=== PATIENT | male | born 2000 | race Caucasian/White ===

== ENCOUNTER 2020-08-24 18:52 | Emergency (ER) | payer OTHER, SELFPAY ==
--- NOTE | ~2020-08-24 | US_ITS ---
EXAMINATION: US ABDOMEN LIMITED CLINICAL INFORMATION: Right upper quadrant pain with question of cholecystitis. COMPARISON: None TECHNIQUE: Real-time imaging of the right upper quadrant abdominal viscera. FINDINGS: PANCREAS: The visualized portions of the pancreas are unremarkable but a large portion of the gland is obscured by bowel gas. LIVER: The liver is normal in size but is heterogeneous in echotexture multiple linear channels that are hypoechoic are present that were examined with Doppler do not appear to have flow and are suspicious for dilated intrahepatic bile ducts (for example see series 1 image /). No focal liver masses are seen. GALLBLADDER: The gallbladder is physiologically distended without evidence of stones, sludge, polyps, wall thickening or pericholecystic fluid. COMMON BILE DUCT: Normal in caliber measuring 0.3 cm in diameter. RIGHT KIDNEY: No hydronephrosis. A small 1.3 x 1.0 x 0.8 cm upper pole cyst is present. No renal calculi or focal solid parenchymal lesions. The kidney measures 11.9 cm in maximum dimension. FREE FLUID: None. US/US abdomen limited IMPRESSION: Findings present are suspicious for intrahepatic biliary ductal dilatation and, because of this, contrast-enhanced CT scan is recommended for further evaluation.
[2020-08-24 19:12] VITALS: BP 125/75; PULSE 101; RESP 16; TEMP 36.9; O2SAT 97; BMI 32.0
[2020-08-24 19:52] LABS: Glucose Urine UA NEG (NEG); Leukocyte Esterase Urine NEG (NEG); Nitrite Urine NEG (NEG); Urine Blood NEG (NEG); Urine Ketones NEG (NEG); Urine Protein NEG (NEG-TRACE)
[2020-08-24 19:55] LABS: Appearance Urine CLEAR; Color Urine STRAW
[2020-08-24 20:21] LABS: MANUAL DIFF FLAG NO
[2020-08-24 20:22] LABS: Basophils Percent Auto 0.3 % (0-2); Eosinophils Percent Auto 0.1 % (0-4); Hematocrit 47.1 % (42-52); Imm Gran Abs Auto 0.05 X10*3/uL (0.00-0.03); Imm Gran Pct Auto 0.4 % (0.0-0.4); Lymphocytes Absolute Auto 1.3 X10*3/uL (1.2-4.9); Lymphocytes Percent Auto 9.9 % (20-40); Mean Corpuscular Hemoglobin 29.2 pg (27.0-33.0); Mean Corpuscular Volume 85.9 fL (80-98); Mean Platelet Volume 9.5 fL (9.4-12.4); Monocytes Absolute Auto 1.2 X10*3/uL (0.1-1.2); Neutrophils Absolute Auto 10.7 X10*3/uL (2.0-8.3); Neutrophils Percent Auto 80.3 % (45-73); Platelet Count 272 X10*3/uL (160-400); Red Blood Count 5.48 X10*6/uL (4.60-5.80); Red Cell Distribution Width 12.3 % (11.0-16.0); White Blood Count 13.3 X10*3/uL (4.8-10.8)
[2020-08-24 20:50] LABS: Alanine Aminotransferase 49 U/L (0-40); Albumin Level 4.7 g/dL (3.5-5.0); Alkaline Phosphatase 96 U/L (39-117); Anion Gap 13 (12-20); Aspartate Amino Transferase 32 U/L (5-37); Bilirubin Total 1.3 mg/dL (0.0-1.0); Blood Urea Nitrogen 8 mg/dL (9-16); Calcium 9.4 mg/dL (8.4-10.2); Carbon Dioxide 23 mmol/L (22-29); Chloride 104 mmol/L (96-108); Creatinine Clr Calc Pharmacy 145.1; Estimated Glomerular Filt Rate > 60; Glucose Random 97 mg/dL (60-115); Lipase 9 U/L (8-78); Sodium 136 mmol/L (135-145); Total Protein 7.2 g/dL (6.5-8.0)
--- NOTE | 2020-08-24 21:27 | ED_ITS ---
HPI - Abdominal Pain General Chief Complaint: Abdominal Pain Stated Complaint: abd pain Time Seen by Provider: 08/24/20 21:27 Source: patient and family Mode of arrival: ambulatory Limitations: no limitations History of Present Illness HPI narrative: Medical history complaining of epigastric pain since yesterday with bloating and slight nausea no vomiting. Patient never had any stomach issues before no pain in the lower abdomen no fever no chills patient has been eating okay otherwise MD elicited complaint: abdominal pain Onset (ago): day(s) (2) Pain Consistency: constant Location: epigastric Severity: mild Quality: sharp Radiation: none Exacerbating factors: eating Relieving factors: nothing Associated symptoms: nausea Related Data Previous Rx's Medication Instructions Recorded omeprazole 20 mg PO DAILY #10 cap 08/24/20 sucralfate 1 g PO BID #20 tab 08/24/20 Allergies Allergy/AdvReac Type Severity Reaction Status Date / Time No Known Allergies Allergy Verified 08/24/20 19:12 Review of Systems Review of Systems Constitutional : No Weight loss, No Fever, No Chills ENT/Mouth : No sore throat, No Rhinorrhea Eyes: No Eye Pain, No Swelling Cardiovascular : No Chest Pain, no palpitations Respiratory : No Cough, No Sputum, no shortness of breath Gastrointestinal : +Nausea, No Vomiting, No Diarrhea, +abdominal Pain, no black stools Genitourinary : No Dysuria, No Urinary Frequency Musculoskeletal : No joint pain, No Myalgias, No Joint Swelling Skin : No Skin Lesions, No rash Neuro : No Weakness, No Numbness, No Dizziness, No Headache Psych : No Anxiety/Panic, No Depression Heme/Lymph: No Bruising, No Lymphadenopathy Endocrine : No Polyuria, No Polydipsia All other systems reviewed and are negative Physical Exam Vital Signs: Vital Signs: Last Vital Signs Temp 98.5 F 08/24/20 23:21 Pulse 84 08/24/20 23:21 Resp 16 08/24/20 23:21 BP 115/61 08/24/20 23:21 Pulse Ox 97 08/24/20 23:21 Body Mass Index 32.0 Appearance: Alert. Oriented X3. No acute distress. Eyes: Pupils equal, round and reactive to light. ENT: Pharynx normal. Neck: Normal inspection. Neck supple. CVS: Normal heart rate and rhythm. Pulses normal. Respiratory: No respiratory distress. Breath sounds normal. Abdomen: Soft mild tenderness right upper quadrant and epigastric area no tenderness in the right lower quadrant no rebound tenderness no guarding, Bowel sounds are present, no mass palpable, no CVA tenderness Skin: Skin warm and dry. Normal skin color. Normal skin turgor. Extremities: No lower extremity edema. Neuro: Oriented X 3. No motor deficit. No sensory deficit. Course Course Course Narrative: 0050 : Patient preferred to come back for the CT scan which was done with IV contrast awaiting for the final report 01:18 CT scan negative for any acute findings MDM - Abdominal Pain MDM Narrative Medical decision making narrative: Patient with epigastric pain likely gastritis ultrasound negative for gallstones case discussed radiology is seen some dilated hepatic ducts etiology not clear how advise IV contrast CT scan patient left before the report came off usually will be coming back for CT scan as such patient is sleeping now without any significant pain Differential Diagnosis Differential diagnosis: Likely abdominal pain Lab Data Attestation: I reviewed the patient's lab results. Result diagrams: 08/24/20 20:15 08/24/20 20:15 Labs: Lab Results 08/24/20 08/24/20 08/24/20 Range/Units 19:36 20:15 20:15 WBC 13.3 H (4.8-10.8) X10*3/uL RBC 5.48 (4.60-5.80) X10*6/uL Hgb 16.0 (14.0-18.0) g/dl Hct 47.1 (42-52) % MCV 85.9 (80-98) fL MCH 29.2 (27.0-33.0) pg MCHC 34.0 (31.0-36.0) g/dl RDW 12.3 (11.0-16.0) % Plt Count 272 (160-400) X10*3/uL MPV 9.5 (9.4-12.4) fL Immature Gran % (Auto) 0.4 (0.0-0.4) % Neut % (Auto) 80.3 H (45-73) % Lymph % (Auto) 9.9 L (20-40) % [place] % (Auto) 9.0 (2-11) % Eos % (Auto) 0.1 (0-4) % Baso % (Auto) 0.3 (0-2) % Lymph # (Auto) 1.3 (1.2-4.9) X10*3/uL [place] # (Auto) 1.2 (0.1-1.2) X10*3/uL Eos # (Auto) 0.0 (0.0-0.4) X10*3/uL Baso # (Auto) 0.0 (0.0-0.2) X10*3/uL Abs Immat Gran (auto) 0.05 H (0.00-0.03) X10*3/uL Absolute Neuts (auto) 10.7 H (2.0-8.3) X10*3/uL Absolute Nucleated RBC 0.000 (0.0-0.012) X10*3/uL Nucleated RBC % (auto) 0.0 (0.0-0.2) /100WBC Hold Blue Top SEE NOTE Sodium (135-145) mmol/L Potassium (3.3-5.1) mmol/L Chloride (96-108) mmol/L Carbon Dioxide (22-29) mmol/L Anion Gap (12-20) BUN (9-16) mg/dL Creatinine (0.5-1.4) mg/dL Estim Creat Clear Calc Estimated GFR Random Glucose (60-115) mg/dL Calcium (8.4-10.2) mg/dL Total Bilirubin (0.0-1.0) mg/dL AST (5-37) U/L ALT (0-40) U/L Alkaline Phosphatase (39-117) U/L Total Protein (6.5-8.0) g/dL Albumin (3.5-5.0) g/dL Lipase (8-78) U/L Urine Color STRAW Urine Appearance CLEAR Urine pH 7.0 (5.0-8.0) Ur Specific [place] 1.010 (1.005-1.025) Urine Protein NEG (NEG-TRACE) MG/DL Urine Glucose (UA) NEG (NEG) MG/DL Urine Ketones NEG (NEG) MG/DL Urine Blood NEG (NEG) Urine Nitrite NEG (NEG) Ur Leukocyte Esterase NEG (NEG) 08/24/20 Range/Units 20:15 WBC (4.8-10.8) X10*3/uL RBC (4.60-5.80) X10*6/uL Hgb (14.0-18.0) g/dl Hct (42-52) % MCV (80-98) fL MCH (27.0-33.0) pg MCHC (31.0-36.0) g/dl RDW (11.0-16.0) % Plt Count (160-400) X10*3/uL MPV (9.4-12.4) fL Immature Gran % (Auto) (0.0-0.4) % Neut % (Auto) (45-73) % Lymph % (Auto) (20-40) % [place] % (Auto) (2-11) % Eos % (Auto) (0-4) % Baso % (Auto) (0-2) % Lymph # (Auto) (1.2-4.9) X10*3/uL [place] # (Auto) (0.1-1.2) X10*3/uL Eos # (Auto) (0.0-0.4) X10*3/uL Baso # (Auto) (0.0-0.2) X10*3/uL Abs Immat Gran (auto) (0.00-0.03) X10*3/uL Absolute Neuts (auto) (2.0-8.3) X10*3/uL Absolute Nucleated RBC (0.0-0.012) X10*3/uL Nucleated RBC % (auto) (0.0-0.2) /100WBC Hold Blue Top Sodium 136 (135-145) mmol/L Potassium 4.0 (3.3-5.1) mmol/L Chloride 104 (96-108) mmol/L Carbon Dioxide 23 (22-29) mmol/L Anion Gap 13 (12-20) BUN 8 L (9-16) mg/dL Creatinine 0.79 (0.5-1.4) mg/dL Estim Creat Clear Calc 145.1 Estimated GFR > 60 Random Glucose 97 (60-115) mg/dL Calcium 9.4 (8.4-10.2) mg/dL Total Bilirubin 1.3 H (0.0-1.0) mg/dL AST 32 (5-37) U/L ALT 49 H (0-40) U/L Alkaline Phosphatase 96 (39-117) U/L Total Protein 7.2 (6.5-8.0) g/dL Albumin 4.7 (3.5-5.0) g/dL Lipase 9 (8-78) U/L Urine Color Urine Appearance Urine pH (5.0-8.0) Ur Specific [place] (1.005-1.025) Urine Protein (NEG-TRACE) MG/DL Urine Glucose (UA) (NEG) MG/DL Urine Ketones (NEG) MG/DL Urine Blood (NEG) Urine Nitrite (NEG) Ur Leukocyte Esterase (NEG) Discharge Plan Discharge Clinical Impression: Acute gastritis Patient Disposition: Home, Self-Care Instructions: Gastritis (ED) Additional Instructions: Drink plenty of fluids. Take medication as prescribed. Report to the ER if pain gets worse or moves to lower abdomen/vomiting Prescriptions: New omeprazole 20 mg capsule,delayed release(DR/EC) 20 mg PO DAILY Qty: 10 RF: 0 sucralfate 1 gram tablet 1 g PO BID Qty: 20 RF: 0 Interventions: ED Discharge Assessment Last Done: 08/24/20 23:22 Discharge Date/Time: 08/24/20 23:23 [facility] Past Medical History Medical History No known health problems
[2020-08-24] MEDS: Magnesium Hydrox/Alum Hydrox 30 ML ORAL.SUSP PO (22:00)
[2020-08-24] MEDS: Omeprazole 40 MG CAPSULE.DR PO (22:00)
[2020-08-24 23:21] VITALS: BP 115/61; PULSE 84; RESP 16; TEMP 36.9; O2SAT 97
== END 2020-08-24 23:23 | disposition home or self-care (01) ==
PROVIDERS: Emergency Provider Internal Medicine
DX: K29.00 Acute gastritis without bleeding (principal); R10.13 Epigastric pain; Z79.899 Other long term (current) drug therapy
CPT/HCPCS: 36415; 76705; 80053; 81003; 83690; 85025; 99283; 99284

== ENCOUNTER 2020-08-25 00:23 | Outpatient (REF) | payer OTHER, SELFPAY ==
--- NOTE | ~2020-08-25 | CT_ITS ---
EXAMINATION: CT ABDOMEN AND PELVIS WITH CONTRAST CLINICAL INFORMATION: Upper abd pain, abn hepatic ducts on us COMPARISON: Ultrasound of the abdomen from the same day. TECHNIQUE: Multidetector volumetric images were obtained from the superior aspect of the liver through the pubic symphysis following administration 85 mL of Omnipaque 350 intravenous contrast. Sagittal and coronal reformatted images were obtained on the technologist's workstation. Oral contrast: No This CT examination was performed using dose optimization techniques as appropriate, variously including the following: *Automated exposure control *Adjustment of mA and/or kV according to patient size (this includes techniques or standardized protocols for targeted exams where dose is matched to indication/reason for exam; i.e. extremities or head) *Use of iterative reconstruction technique DLP: 609 mGy-cm FINDINGS: LUNG BASES: The visualized lung bases are unremarkable. LIVER, GALLBLADDER, AND BILIARY TREE: The liver is normal in size, shape, and attenuation. No focal hepatic lesion or biliary ductal dilatation is present. The gallbladder is unremarkable with no evidence of radiopaque gallstones, gallbladder wall thickening, or obvious pericholecystic inflammatory changes. PANCREAS: Unremarkable. SPLEEN: Unremarkable. ADRENAL GLANDS: Unremarkable. KIDNEYS AND URETERS: There is a 8 mm focus of hypoattenuation in the upper pole of the right kidney which is too small to characterize, most likely a simple cyst. No suspicious renal lesions. Kidneys enhance symmetrically and are normal in size and cortical thickness. No hydronephrosis or nephrolithiasis. Contrast material within the renal collecting systems limits sensitivity for punctate calculi. Ureters are normal in caliber without calculi. BLADDER: Unremarkable. GASTROINTESTINAL TRACT: Stomach, small bowel, and colon are normal in caliber. There is subtle wall thickening of the gastric antrum with haziness of the surrounding fat. This is likely due in large part to motion artifact through this region. No additional bowel wall thickening or surrounding inflammatory changes. Appendix is normal. No intraperitoneal free fluid or free air. ABDOMINAL WALL: No significant hernia is appreciated. LYMPH NODES: Normal. VASCULAR: Unremarkable. PELVIC VISCERA: Unremarkable. OSSEOUS STRUCTURES: Unremarkable. CT/CT abdomen pelvis w con IMPRESSION: 1. No appreciable biliary ductal dilatation. No acute hepatobiliary abnormality by CT. 2. Subtle haziness around the gastric antrum is likely due to motion artifact. Inflammation from peptic ulcer disease is also on the differential, particularly given the mild wall thickening in this region, though specificity of gastric findings on CT is relatively low. Consider gastroenterology consultation if this correlates with the potential site of patient's symptoms.
== END 2020-08-25 00:24 | disposition home or self-care (01) ==
LOC: HO.CT 00:23
PROVIDERS: Visit Provider Internal Medicine
DX: R10.10 Upper abdominal pain, unspecified (principal); R93.2 Abnormal findings on diagnostic imaging of liver and biliary tract
CPT/HCPCS: 74177; Q9967

== ENCOUNTER 2021-02-10 22:30 | Emergency (ER) | payer OTHER, SELFPAY ==
[2021-02-10 22:53] VITALS: BP 115/73; PULSE 69; RESP 18; TEMP 36.7; O2SAT 96; BMI 29.9
--- NOTE | 2021-02-10 23:41 | ED_ITS ---
HPI - Back Pain/Injury General Chief Complaint: Back Pain/Injury Stated Complaint: back inj, work inj Time Seen by Provider: 02/10/21 23:13 Source: patient Mode of arrival: ambulatory Limitations: no limitations History of Present Illness HPI Narrative: Patient comes emergency room complaining of right upper back pain. 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 Patient states that during his break he sat down and started experiencing severe right-sided upper back pain. Patient denies any trauma. Patient took ibuprofen at home with no relief. Patient denies flank pain, no hematuria, no chest pain or shortness of breath. Related Data Previous Rx's Medication Instructions Recorded omeprazole 20 mg capsule,delayed 20 mg PO DAILY #10 cap 08/24/20 release sucralfate 1 gram tablet 1 g PO BID #20 tab 08/24/20 cyclobenzaprine 10 mg tablet 10 mg PO TID PRN #10 tab 02/11/21 Allergies Allergy/AdvReac Type Severity Reaction Status Date / Time No Known Allergies Allergy Verified 02/10/21 22:53 Review of Systems Review of Systems: Constitutional : No Weight loss, No Fever, No Chills, No Night Sweats, No Fatigue, No Malaise ENT/Mouth : No Hearing loss, No Ear Pain, No Nasal Congestion, No Sinus Pain, No Hoarseness, No sore throat, No Rhinorrhea, No Swallowing Difficulty Eyes: No Eye Pain, No Swelling, No Redness, No Foreign Body, No Discharge, No Vision Changes Cardiovascular : No Chest Pain, No SOB, No Dyspnea on Exertion, No Orthopnea, No Edema, No Palpitations Respiratory : No Cough, No Sputum, No Wheezing, No Smoke Exposure, No Dyspnea Gastrointestinal : No Nausea, No Vomiting, No Diarrhea, No Constipation, No abdominal Pain, No Hematochezia, No Melena Genitourinary : no irregular bleeding, No Dysuria, No Urinary Frequency, No Hematuria, No Urinary Incontinence, No Urgency, No Flank Pain, No Urinary Flow Changes, No Hesitancy Musculoskeletal : Right upper back pain, No Myalgias, No Joint Swelling Skin : No Skin Lesions, No rash Neuro : No Weakness, No Numbness, No Paresthesias, No Loss of Consciousness, No Dizziness, No Headache Psych : No Anxiety/Panic, No Depression, No SI/HI/AH/VH, No Social Issues, Heme/Lymph: No Bruising, No Bleeding,No Lymphadenopathy Endocrine : No Polyuria, No Polydipsia, No Temperature Intolerance [facility] Past Medical History Medical History No known health problems Social History Social History Advance Directives: No Physical Exam Vital Signs: Vital Signs: Last Vital Signs Temp 98.1 F 02/10/21 22:53 Pulse 69 02/10/21 22:53 Resp 18 02/10/21 22:53 BP 115/73 02/10/21 22:53 Pulse Ox 96 02/10/21 22:53 Body Mass Index 29.9 Const: Other: Appearance: Alert. Oriented X3. No acute distress. Eyes: Pupils equal, round and reactive to light. ENT: Pharynx normal. Neck: Normal inspection. Neck supple. No lymph nodes noted. No crepitus CVS: Normal heart rate and rhythm. Pulses normal. Normal S1 and S2 Respiratory: No respiratory distress. Breath sounds normal. No Wheezing. No rales Abdomen: Soft and nontender. No rigidity. No distention. Back: Pain to palpation over the scapular and inferior scapular area, no flank pain, no cervical/thoracic/lumbar tenderness Skin: Skin warm and dry. Normal skin color. Normal skin turgor. Extremities: No lower extremity edema. No lower extremity edema. No Lacerations. No Rash Neuro: Oriented X 3. No motor deficit. No sensory deficit. Moving all extermities. No slurred speech. Course Course Course Narrative: Patient has no flank pain, urinalysis negative, kidney stone is not suspected. Patient's pain likely musculoskeletal, muscle spasm. MDM - Back Pain/Injury Lab Data Labs: Lab Results 02/10/21 Range/Units 23:45 Urine Color YELLOW Urine Appearance CLEAR Urine pH 6.0 (5.0-8.0) Ur Specific [place] >= 1.030 H (1.005-1.025) Urine Protein TRACE (NEG-TRACE) MG/DL Urine Glucose (UA) NEG (NEG) MG/DL Urine Ketones NEG (NEG) MG/DL Urine Blood NEG (NEG) Urine Nitrite NEG (NEG) Ur Leukocyte Esterase NEG (NEG) Discharge Plan Discharge Clinical Impression: Thoracic back pain Patient Disposition: Home, Self-Care Instructions: Back Pain (ED) Additional Instructions: Please follow-up with your primary care physician tomorrow. If you have any worsening or new symptoms, please return to the emergency room or call 911 Prescriptions: New cyclobenzaprine 10 mg tablet 10 mg PO TID PRN (Reason: muscle spasm) Qty: 10 RF: 0 No Action omeprazole 20 mg capsule,delayed release(DR/EC) 20 mg PO DAILY Qty: 10 RF: 0 sucralfate 1 gram tablet 1 g PO BID Qty: 20 RF: 0 Stand Alone Forms: Work/School Release
[2021-02-10 23:53] LABS: Glucose Urine UA NEG (NEG); Leukocyte Esterase Urine NEG (NEG); Nitrite Urine NEG (NEG); Specific Gravity - Urine >= 1.030 (1.005-1.025); Urine Blood NEG (NEG); Urine Ketones NEG (NEG); Urine Protein TRACE MG/DL (NEG-TRACE)
[2021-02-10 23:55] LABS: Appearance Urine CLEAR; Color Urine YELLOW
[2021-02-11] MEDS: Cyclobenzaprine HCl 10 MG TABLET PO (00:04)
[2021-02-11] MEDS: Acetaminophen 325 MG TABLET 650 MG PO (00:05)
[2021-02-11 00:40] VITALS: BP 114/73; PULSE 64; RESP 18; TEMP 36.6; O2SAT 98
== END 2021-02-11 00:58 | disposition home or self-care (01) ==
PROVIDERS: Emergency Provider Emergency Medicine
DX: Z04.2 Encounter for examination and observation following work accident (principal); M54.6 Pain in thoracic spine
CPT/HCPCS: 81003; 99283

== ENCOUNTER 2021-03-17 21:36 | Emergency (ER) | payer OTHER, SELFPAY ==
[2021-03-17 22:19] VITALS: BP 132/78; PULSE 107; RESP 16; TEMP 37.4; O2SAT 98; BMI 29.2
[2021-03-17 22:34] LABS: COVID-19 Test Negative (Negative)
--- NOTE | 2021-03-17 23:04 | ED.URI ---
HPI - URI/Sore Throat General Chief Complaint: Upper Respiratory Symptoms Stated Complaint: Covid symptoms Time Seen by Provider: 03/17/21 23:03 Source: patient Mode of arrival: ambulatory Limitations: no limitations History of Present Illness HPI Narrative: 20-year-old male presents for 2 days of cough, runny nose, headache, and sore throat. Patient had a fever 3 days ago at home that he reports was 101. Two days ago he had a sore throat, so was sent home from work and had a negative COVID test today. His throat is still sore, and he has a dry cough. He is able to eat and drink, but it hurts to swallow. He did not take any antipyretics today. Patient reports his mother and sister are both sick at home with similar symptoms. Related Data Previous Rx's Medication Instructions Recorded omeprazole 20 mg capsule,delayed 20 mg PO DAILY #10 cap 08/24/20 release sucralfate 1 gram tablet 1 g PO BID #20 tab 08/24/20 cyclobenzaprine 10 mg tablet 10 mg PO TID PRN #10 tab 02/11/21 albuterol sulfate 90 mcg/actuation 2 puff INHALATION Q4-6H PRN #6.7 g 03/17/21 aerosol inhaler benzonatate 200 mg capsule 200 mg PO TID 5 Days #15 cap 03/17/21 prednisone 20 mg tablet 40 mg PO DAILY 5 Days #10 tab 03/17/21 Allergies Allergy/AdvReac Type Severity Reaction Status Date / Time No Known Allergies Allergy Verified 03/17/21 22:19 Review of Systems Constitutional: Constitutional: Reports fatigue, Reports fever(s), Reports headache(s) and Denies weakness Eyes: Eyes: Denies blurry vision ENT: Denies dizziness, Denies otalgia, Reports headache(s), Reports nasal congestion, Reports nasal discharge, Denies neck pain, Denies odynophagia, Denies sinus pain, Reports sore throat, Denies throat swelling and Denies tongue swelling Cardiovascular: Cardiovascular: Denies chest pain, Denies palpitations and Denies dyspnea Respiratory: Respiratory: Denies chest congestion, Reports cough, Denies dyspnea and Denies wheezing Gastrointestinal: Gastrointestinal: Denies abdominal pain, Denies constipation, Denies diarrhea, Denies nausea, Denies odynophagia and Denies vomiting Musculoskeletal: Musculoskeletal: Denies myalgias and Denies neck pain Integumentary/Breasts: Skin/Breast: Denies rash Neurologic: Denies dizziness, Reports headache(s) and Denies weakness Endocrine: Endocrine: Reports fatigue and Denies palpitations Allergic/Immunologic: Allergic/Immunologic: Denies throat swelling, Denies tongue swelling and Denies wheezing PMFSH Past Medical History Medical History No known health problems Social History Social History Advance Directives: No Advance Directives Information Provided: No Physical Exam Vital Signs: Vital Signs: Last Vital Signs Temp 99.3 F 03/17/21 22:19 Pulse 107 H 03/17/21 22:19 Resp 16 03/17/21 22:19 BP 132/78 03/17/21 22:19 Pulse Ox 98 03/17/21 22:19 Body Mass Index 29.2 Const: General: comfortable, no acute distress, alert, awake and ill appearing (mildly) acutely Nutritional Appearance: well nourished Orientation/consciousness: patient oriented x3 Limitations: no limitations HENMT: Head: Yes normal to inspection, Yes normocephalic and Yes atraumatic Ears: external ears normal, TM's normal bilaterally and EAC's normal General nose exam: Normal external nose present and Nasal discharge present Face and sinus: Yes normal facial exam Mouth: Normal oral and palatal mucosa present and moist mucous membranes Throat: Yes abnormal tonsil (Erythematous and hypertrophic, no exudate), No peritonsillar mass, Yes posterior oropharynx abnormal (Erythematous), No uvula laterally displaced, No uvular edema and No cobblestoning Eyes: Conjunctivae: conjunctival abnormal (glassy) Pupils: Equal, round and reactive pupils present Neck: Neck: Yes normal visual inspection, Yes full ROM, Yes no lymphadenopathy, Yes no meningeal signs, Yes trachea midline and Yes supple Resp: Effort & Inspection: normal respiratory effort and able to speak in complete sentences Auscultation: clear to auscultation bilaterally, no crackles, no rales, no rhonchi and no wheezes Cardio: Rate: regular rate Rhythm: regular rhythm Heart sounds: S1 normal heart sound present and S2 normal heart sound present GI: Inspection: Yes normal to inspection Palpation (GI): Soft to palpation, nontender, no guarding and not rigid Percussion: Yes normal to percussion Auscultation: normal bowel sounds Skin: General skin exam: no rashes or lesions noted Neuro: General: patient oriented x3 and no meningeal signs Cranial nerves: Yes Equal, round and reactive pupils present Extrem: General: Yes normal to inspection and Yes full ROM Course Course Course Narrative: 20-year-old male presents for 2 days viral-like upper respiratory symptoms. Patient is COVID negative. Patient is mildly acutely ill-appearing. No wheezes rales or rhonchi, lungs clear to auscultation bilaterally. Patient has a injected posterior oropharynx with hypertrophic and erythematous tonsils bilaterally with no exudate. Will treat symptomatically. Albuterol inhaler, Tessalon Perles, short course of prednisone for enlarged tonsils and pain with swallowing, salt water gargles, Tylenol, rest, push fluids, out of work until symptoms have resolved. Gave return precautions, patient verbalized agreement understanding of the plan. MDM - URI/Sore Throat Lab Data Labs: Lab Results 03/17/21 Range/Units 22:15 COVID-19 ([facility]) Negative (Negative) COVID-19 Clin Com See Note Discharge Plan Discharge Clinical Impression: Upper respiratory infection Qualifiers: URI type: unspecified viral URI Qualified Code(s): J06.9 - Acute upper respiratory infection, unspecified Patient Disposition: Home, Self-Care Instructions: Pharyngitis (ED), Upper Respiratory Infection (ED) Additional Instructions: Your COVID test today was negative. Drink plenty of fluids, use Tylenol, and rest. Please use the albuterol inhaler as prescribed, 2 puffs every 4 hours while you are awake for the next 3-4 days. Please also take the benzonatate pills. Take them as prescribed, this should help with the tickle in her throat that makes a cough. Please also take prednisone in the morning, this will help with your sore throat. Salt water gargles will also help. Please put 1 tsp of salt in a couple of warm water and gargle, do this 4 times a day. If you have worsening fevers, you feel short of breath, if your throat feels swollen, if you cannot swallow, for any other new or concerning symptoms, please return to the emergency room. Prescriptions: New albuterol sulfate 90 mcg/actuation HFA aerosol inhaler 2 puff inhalation Q4-6H PRN (Reason: shortness of breath or wheezing) Qty: 6.7 RF: 0 benzonatate 200 mg capsule 200 mg PO TID 5 Days Qty: 15 RF: 0 prednisone 20 mg tablet 40 mg PO DAILY 5 Days Qty: 10 RF: 0 No Action omeprazole 20 mg capsule,delayed release(DR/EC) 20 mg PO DAILY Qty: 10 RF: 0 sucralfate 1 gram tablet 1 g PO BID Qty: 20 RF: 0 cyclobenzaprine 10 mg tablet 10 mg PO TID PRN (Reason: muscle spasm) Qty: 10 RF: 0 Stand Alone Forms: Work/School Release
[2021-03-17] MEDS: Albuterol Sulfate 90 MCG 8 GM INHALER 2 PUFF INHALE (23:50)
[2021-03-17] MEDS: Ibuprofen 800 MG TABLET PO (23:50)
== END 2021-03-18 00:29 | disposition home or self-care (01) ==
PROVIDERS: Emergency Provider Emergency Medicine; PCP Internal Medicine
DX: J06.9 Acute upper respiratory infection, unspecified (principal); Z20.822 Contact with and (suspected) exposure to COVID-19; Z79.899 Other long term (current) drug therapy
CPT/HCPCS: 36415; 87635; 99284

== ENCOUNTER 2021-06-22 07:29 | Outpatient (REF) | payer OTHER, SELFPAY ==
[2021-06-22 10:32] LABS: Alanine Aminotransferase 27 U/L (0-40); Albumin Level 4.5 g/dL (3.5-5.0); Alkaline Phosphatase 80 U/L (39-117); Aspartate Amino Transferase 22 U/L (5-37); Bilirubin Direct 0.2 mg/dL (0.0-0.5); Bilirubin Total 0.4 mg/dL (0.0-1.0); Gamma Glutamyl Transpeptidase 38 U/L (11-51); Total Protein 6.8 g/dL (6.5-8.0)
[2021-06-22 10:51] LABS: HBsAGNum1 0.25 S/CO (0.00-0.99); Hepatitis A Antibody IgM 0.17 Index (0-0.79); Hepatitis B Surface Antigen Negative (Negative); ~Hepatitis A Antibody IgM Nonreactive (Nonreactive); ~Hepatitis B Surface Antibody NONREACTIVE (Nonreactive)
[2021-06-22 10:54] LABS: HBc Num1 0.05 S/CO (0.00-0.79); HIV AB/AG Nonreactive (Nonreactive); HIV Num 1 0.07 S/CO (0.00-0.99); Hepatitis B Core Antibody Nonreactive (Nonreactive); ~HepC Num1 0.07 S/CO (0.00-0.79); ~Hepatitis C Antibody Nonreactive (Nonreactive)
[2021-06-22 10:56] LABS: Ferritin 111 ng/mL (20-250)
[2021-06-23 11:35] LABS: Ceruloplasmin 29 mg/dL (18-36)
[2021-06-25 22:55] LABS: Anti Nuclear Antibody Screen POSITIVE (NEGATIVE)
[2021-06-26 12:55] LABS: Alpha Fetoprotein 4.5 ng/mL (<6.1)
[2021-06-27 15:55] LABS: Mitochondrial Antibodies NEGATIVE (NEGATIVE)
[2021-06-27 23:05] LABS: Smooth Muscle Antibody <20 U (<20)
== END 2021-06-22 07:30 | disposition home or self-care (01) ==
LOC: HO.LAB 07:29
PROVIDERS: PCP Internal Medicine; Referring Provider Internal Medicine; Visit Provider Nurse Practitioner
DX: Z11.4 Encounter for screening for human immunodeficiency virus [HIV] (principal); K21.9 Gastro-esophageal reflux disease without esophagitis; R79.89 Other specified abnormal findings of blood chemistry
CPT/HCPCS: 36415; 80076; 82105; 82390; 82728; 82977; 86015; 86038; 86039; 86255; 86256; 86704; 86706; 86709; 86803; 87340; 87389; 99202

== ENCOUNTER 2021-07-30 09:01 | Outpatient (REF) | payer OTHER, SELFPAY ==
--- NOTE | ~2021-07-30 | US_ITS ---
EXAMINATION: US COMPLETE ABDOMEN WITH LIVER ELASTOGRAPHY CLINICAL INFORMATION: Elevated liver function tests COMPARISON: Previous ultrasound and CT of the abdomen August 2020 TECHNIQUE: Real-time imaging of the abdominal viscera. Noninvasive ultrasound liver fibrosis assessment is performed using Thong ElastPQ point quantification shear wave elastography (2D-SWE) with a C5-2 MHz transducer. Multiple elastography samples are obtained. FINDINGS: PANCREAS: Normal. ABDOMINAL AORTA: The proximal, middle, and distal aortic segments are normal in caliber. INFERIOR VENA CAVA: Visualized portions are normal. LIVER: Liver echotexture is normal. The liver is normal in contour. The bile ducts again appear prominent. This is similar to previous ultrasound. No focal liver lesion or biliary duct dilatation seen. The right lobe measures 13 cm in length. The left lobe measures 8 cm in length. Portal flow is normal/hepatopedal Shear wave liver elastography median stiffness is 1.8 m/s (reference: normal median stiffness is 1.3 m/s or less). IQR/median stiffness to assess sampling precision is 0.16 (reference: good quality data set is IQR/median stiffness of 0.15 or less). GALLBLADDER: Normal. The gallbladder is physiologically distended without evidence of stones, sludge, polyps, wall thickening or pericholecystic fluid. COMMON BILE DUCT: Normal in caliber measuring 0.3 cm in diameter. RIGHT KIDNEY: There is a 1 cm cyst in the upper pole. No hydronephrosis. No renal calculi or focal parenchymal lesions. The kidney measures 12 cm in maximum dimension. LEFT KIDNEY: There is a 3 mm stone in the midpole. No hydronephrosis. No focal parenchymal lesions. The kidney measures 11 cm in maximum dimension. SPLEEN: Normal. The spleen measures 10 cm in maximum dimension. FREE FLUID: None. US/US abdomen comp w elastography IMPRESSION: 1. Impression: Prominent or echogenic appearing intrahepatic bile ducts similar to August 2020 exam. The liver is otherwise normal appearing. Small right renal cyst. Small left renal stone. 2. Liver elastography: Adequate liver sampling. Suggestive of compensated advanced chronic liver disease but need further test for confirmation. REFERENCE: Society of Radiologists in Ultrasound Liver Stiffness Thresholds (2020): LIVER STIFFNESS THRESHOLDS: *Liver Stiffness equal or less than 1.3 m/s: High probability of being normal. *Liver Stiffness less than 1.7 m/s: In the absence of other known clinical signs, rules out compensated advanced chronic liver disease. *Liver Stiffness 1.7-2.1 m/s: *Liver Stiffness over 2.1 m/s: Rules in compensated advanced chronic liver disease. *Liver Stiffness over 2.4 m/s: Suggestive of clinically significant portal hypertension. QUALITY OF DATA SET: *IQR/Median value equal or less than 0.15 implies a quality data set. *IQR/Median value over 0.15 implies a poor quality data set. SIGNIFICANT CHANGE FROM PRIOR EXAM: Significant change if liver stiffness measurement is 10% or greater from prior exam. OTHER CONSIDERATIONS: The stage of liver fibrosis may be overestimated in the setting of acute hepatitis, liver inflammation, elevated liver function tests, hepatic vascular congestion, obstructive cholestasis, non-fasting state, and infiltrative diseases such as amyloidosis and lymphoma. In some patients with NAFLD, the liver stiffness thresholds for compensated advanced chronic liver disease may be lower. In causes other than viral hepatitis and NAFLD, liver stiffness thresholds are not well established.
== END 2021-07-30 09:02 | disposition home or self-care (01) ==
LOC: HO.US 09:01
PROVIDERS: PCP Internal Medicine; Visit Provider Nurse Practitioner
DX: R79.89 Other specified abnormal findings of blood chemistry (principal)
CPT/HCPCS: 76705; 76981

== ENCOUNTER → 2021-08-17 08:56 | Outpatient (BNVA) | payer OTHER, SELFPAY | PROVIDERS: PCP Internal Medicine; Referring Provider Internal Medicine; Visit Provider Nurse Practitioner | DX: K75.81 Nonalcoholic steatohepatitis (NASH) (principal) | CPT/HCPCS: 99212 ==

== ENCOUNTER 2021-09-18 17:18 | Emergency (ER) | payer OTHER, SELFPAY ==
[2021-09-18 18:30] VITALS: BP 135/78; PULSE 83; RESP 17; TEMP 36.6; O2SAT 98; BMI 26.4
[2021-09-18] MEDS: Ibuprofen 600 MG TABLET PO (18:30)
[2021-09-18 18:37] LABS: MANUAL DIFF FLAG NO
[2021-09-18 18:44] LABS: Basophils Percent Auto 0.6 % (0-2); Eosinophils Absolute Auto 0.1 X10*3/uL (0.0-0.4); Hematocrit 45.1 % (42.0-52.0); Hemoglobin 15.3 g/dl (14.0-18.0); Imm Gran Abs Auto 0.02 X10*3/uL (0.00-0.03); Imm Gran Pct Auto 0.3 % (0.0-0.4); Lymphocytes Absolute Auto 1.7 X10*3/uL (1.2-4.9); Lymphocytes Percent Auto 23.4 % (20-40); Mean Corpuscular HGB Conc 33.9 g/dl (31.0-36.0); Mean Corpuscular Hemoglobin 29.3 pg (27.0-33.0); Mean Corpuscular Volume 86.4 fL (80.0-98.0); Mean Platelet Volume 9.5 fL (9.4-12.4); Monocytes Absolute Auto 0.8 X10*3/uL (0.1-1.2); Monocytes Percent Auto 10.6 % (2-11); Neutrophils Absolute Auto 4.6 x10*3/uL (2.0-8.3); Neutrophils Percent Auto 64.1 % (45-73); Platelet Count 266 X10*3/uL (160-400); Red Blood Count 5.22 X10*6/uL (4.60-5.80); Red Cell Distribution Width 12.6 % (11.0-16.0); White Blood Count 7.2 X10*3/uL (4.8-10.8)
[2021-09-18 18:55] LABS: Alanine Aminotransferase 26 U/L (0-40); Albumin Level 4.7 g/dL (3.5-5.0); Alkaline Phosphatase 104 U/L (39-117); Anion Gap 13 (12-20); Aspartate Amino Transferase 26 U/L (5-37); Bilirubin Total 1.1 mg/dL (0.0-1.0); Blood Urea Nitrogen 10 mg/dL (9-16); Calcium 9.8 mg/dL (8.4-10.2); Carbon Dioxide 26 mmol/L (22-29); Chloride 104 mmol/L (96-108); Creatinine Clr Calc Pharmacy 133.4; Estimated Glomerular Filt Rate > 60; Glucose Random 98 mg/dL (60-115); Potassium 4.1 mmol/L (3.3-5.1); Sodium 139 mmol/L (135-145); Total Protein 7.2 g/dL (6.5-8.0)
[2021-09-18 19:02] LABS: Appearance Urine HAZY; Color Urine YELLOW; Glucose Urine UA NEG (NEG); Leukocyte Esterase Urine NEG (NEG); Nitrite Urine NEG (NEG); PH 7.5 (5.0-8.0); Specific Gravity - Urine 1.015 (1.005-1.025); Urine Blood NEG (NEG); Urine Ketones NEG (NEG); Urine Protein NEG (NEG-TRACE)
[2021-09-18 19:09] LABS: Mucus Urine 2+ /LPF; RBC Urine 0-2 /HPF (0); Squamous Epithelial Cell Urine 2+ /LPF; UACC CULT YES
[2021-09-18 19:10] LABS: Amorphous Sediment Urine 3+ /LPF; Bacteria Urine 2+ /LPF; WBC Clumps Urine NOTED
[2021-09-19 00:27] VITALS: BP 103/58; PULSE 66; RESP 14; O2SAT 100
--- NOTE | 2021-09-19 00:52 | ED.ABDPAIN ---
HPI - Abdominal Pain General Chief Complaint: Abdominal Pain Stated Complaint: kidney stones Time Seen by Provider: 09/19/21 00:28 Source: patient and other (Girlfriend, Amy) Mode of arrival: ambulatory Limitations: no limitations History of Present Illness HPI narrative: 21-year-old male who presents emergency department for evaluation of bilateral groin pain, frequency and dysuria x1 week. He states that the symptoms have been present for week but have gotten worse over the past 3 days. The patient points to his bilateral groin area when asked to localize the pain. States the pain is a constant burning sensation which is 7/10 at its worst. He has also noted dysuria and urinary frequency. He describes the dysuria is a burning sensation every urinates. He has not noticed any penile discharge. Denies any pain in his testicles or any scrotal swelling. He did not take any medications at home for the pain but was given ibuprofen here in the emergency department he states his pain improved significantly. He is sexually active. MD elicited complaint: other (Bilateral groin pain) Onset (ago): week(s) (7) Pain Consistency: constant Location: groin (Bilateral) Severity: severe Pain scale (0-10): 7 Quality: burning Radiation: none Migration to: no migration Exacerbating factors: nothing Relieving factors: nothing Associated symptoms: dysuria and other (Urinary frequency) Related Data Previous Rx's Medication Instructions Recorded albuterol sulfate 90 mcg/actuation 2 puff INHALATION Q4-6H PRN #6.7 g 03/17/21 aerosol inhaler doxycycline hyclate 100 mg tablet 100 mg PO Q12H 14 Days #28 tab 09/19/21 metronidazole 500 mg tablet 500 mg PO BID 14 Days #28 tab 09/19/21 Allergies Allergy/AdvReac Type Severity Reaction Status Date / Time No Known Allergies Allergy Verified 09/18/21 18:32 Review of Systems Review of Systems Yes all other systems are reviewed and are negative [facility] Past Medical History [facility] Narrative: Past medical history: Reviewed below, Chad. Past surgical history: None. Social history: He denies tobacco, alcohol and drug use. Medical History Asthma GERD (gastroesophageal reflux disease) Family History Family History Mother No problems noted. Father No problems noted. Social History Social History Housing: Apartment Alcohol intake: current Patient Tobacco Use Status: Never used Tobacco e-Cigarette/Vaping Use: Never Used Second Hand Smoke Exposure: No Advance Directives: No service: No Current occupational status: employed Physical Exam ED Vital Signs: Vital Signs - 24 hr 09/18/21 18:30 09/19/21 00:27 Temperature 97.9 F Pulse Rate 83 66 Respiratory Rate 17 14 Blood Pressure 135/78 103/58 L Pulse Oximetry 98 100 BMI result Body Mass Index 26.4 Const General: cooperative and no acute distress Orientation/consciousness: oriented to person and oriented to place Limitations: no limitations HENMT Head: Yes normal to inspection, Yes normocephalic and Yes atraumatic Ears: external ears normal General nose exam: Normal external nose present Face and sinus: Yes normal facial exam Mouth: Normal oral and palatal mucosa present Throat: Yes posterior oropharynx normal Eyes General: appearance normal, both eyes and all related structures Pupils: Equal, round and reactive pupils present Neck Neck: Yes normal visual inspection, Yes no lymphadenopathy, Yes trachea midline and Yes supple Chest Chest palpation & inspection: normal inspection of the chest and normal palpation of entire chest wall Resp Effort & Inspection: normal respiratory effort and able to speak in complete sentences Auscultation: clear to auscultation bilaterally Cardio Rate: regular rate Rhythm: regular rhythm Heart sounds: S1 normal heart sound present, S2 normal heart sound present and no murmurs GI Inspection: Yes normal to inspection Palpation (GI): Soft to palpation, nontender and no guarding Auscultation: normal bowel sounds Other: Normal appearing circumcised penis, no penile discharge, no penile male tenderness, no penile lesions. Both testes are descended and nontender with no swelling. Scrotum appear to be normal. There are no director indirect inguinal hernias on my examination. No CVA tenderness Skin General skin exam: no rashes or lesions noted Neuro General: oriented to person and oriented to place Cranial nerves: Yes CN's II-XII intact bilaterally and Yes Equal, round and reactive pupils present Cognition (Neuro): normal cognition Extrem General: Yes normal to inspection Psych Appearance: grossly normal Speech and movement: Normal speech and movement present Affect: normal affect Attitude: cooperative Thought process: Normal thought process present Thought content: Normal thought content present Course Course Course Narrative: 21-year-old male who presents emergency department for evaluation of bilateral groin pain x1 week, worse x3 days with dysuria and urinary frequency. Patient's examination was unremarkable. Differential includes was not limited to UTI, prostatitis, nonspecific dysuria, urethritis, STD. 0100: Laboratory evaluation: CBC, CMP were unremarkable. Urinalysis was negative. Microscopic revealed 5-9 WBCs, 2+ squamous cells, 3+ sediment, 2+ bacteria. Given the patient's symptoms, I suspect that he has nonspecific urethritis versus prostatitis I did discuss this with him. I did obtain a non clean catch urine specimen for GC and chlamydia testing. Patient was treated with ceftriaxone 500 mg IM. Is given prescriptions for doxycycline 100 mg twice a day for 14 days and metronidazole 500 mg twice a day for 14 days. He was advised to follow-up with his PCP or the on-call urologist for re-evaluation. I did discuss the need to check the GC and chlamydia results and if they are positive then his sexual partners need to be treated. MDM - Abdominal Pain Lab Data Result diagrams: 09/18/21 18:34 09/18/21 18:34 Labs: Lab Results 09/18/21 09/18/21 09/18/21 Range/Units 18:34 18:34 18:56 WBC 7.2 (4.8-10.8) X10*3/uL RBC 5.22 (4.60-5.80) X10*6/uL Hgb 15.3 (14.0-18.0) g/dl Hct 45.1 (42.0-52.0) % MCV 86.4 (80.0-98.0) fL MCH 29.3 (27.0-33.0) pg MCHC 33.9 (31.0-36.0) g/dl RDW 12.6 (11.0-16.0) % Plt Count 266 (160-400) X10*3/uL MPV 9.5 (9.4-12.4) fL Immature Gran % (Auto) 0.3 (0.0-0.4) % Neut % (Auto) 64.1 (45-73) % Lymph % (Auto) 23.4 (20-40) % [place] % (Auto) 10.6 (2-11) % Eos % (Auto) 1.0 (0-4) % Baso % (Auto) 0.6 (0-2) % Lymph # (Auto) 1.7 (1.2-4.9) X10*3/uL [place] # (Auto) 0.8 (0.1-1.2) X10*3/uL Eos # (Auto) 0.1 (0.0-0.4) X10*3/uL Baso # (Auto) 0.0 (0.0-0.2) X10*3/uL Abs Immat Gran (auto) 0.02 (0.00-0.03) X10*3/uL Absolute Neuts (auto) 4.6 (2.0-8.3) x10*3/uL Absolute Nucleated RBC 0.000 (0.0-0.012) X10*3/uL Nucleated RBC % (auto) 0.0 (0.0-0.2) /100WBC Sodium 139 (135-145) mmol/L Potassium 4.1 (3.3-5.1) mmol/L Chloride 104 (96-108) mmol/L Carbon Dioxide 26 (22-29) mmol/L Anion Gap 13 (12-20) BUN 10 (9-16) mg/dL Creatinine 0.84 (0.5-1.4) mg/dL Estim Creat Clear Calc 133.4 Estimated GFR > 60 Random Glucose 98 (60-115) mg/dL Calcium 9.8 (8.4-10.2) mg/dL Total Bilirubin 1.1 H (0.0-1.0) mg/dL AST 26 (5-37) U/L ALT 26 (0-40) U/L Alkaline Phosphatase 104 D (39-117) U/L Total Protein 7.2 (6.5-8.0) g/dL Albumin 4.7 (3.5-5.0) g/dL Urine Color YELLOW Urine Appearance HAZY Urine pH 7.5 (5.0-8.0) Ur Specific [place] 1.015 (1.005-1.025) Urine Protein NEG (NEG-TRACE) MG/DL Urine Glucose (UA) NEG (NEG) MG/DL Urine Ketones NEG (NEG) MG/DL Urine Blood NEG (NEG) Urine Nitrite NEG (NEG) Ur Leukocyte Esterase NEG (NEG) Urine RBC 0-2 (0) /HPF Urine WBC 5-9 H (0-4) /HPF Urine WBC Clumps NOTED Ur Squamous Epith Cells 2+ /LPF Amorphous Sediment 3+ /LPF Urine Bacteria 2+ /LPF Granular Casts 1-4 /LPF Urine Mucus 2+ /LPF Discharge Plan Discharge Clinical Impression: Urethritis Patient Disposition: Home, Self-Care Instructions: Prostatitis (ED), Nonspecific Urethritis in Men (ED) Additional Instructions: Your blood work was unremarkable. Your initial urine did not reveal any evidence for a urinary tract infection. Your symptoms are concerning for either urethritis or prostatitis. The 2nd urine sample that we sent off will be tested for gonorrhea and chlamydia. If any of these tests are positive then your sexual partners will need to be treated. If these tests are negative, it is still very important that you finish your antibiotics to treat nonspecific urethritis and prostatitis. Take ibuprofen 200 mg pills, 3 pills every 6 hours as needed for pain. Follow-up with your doctor in 10 days. You can also try to follow-up with our on-call urologist. Please return to the emergency department if your symptoms get worse or if you develop any symptoms that are concerning to you. Prescriptions: New metronidazole 500 mg tablet 500 mg PO BID 14 Days Qty: 28 0RF doxycycline hyclate 100 mg tablet 100 mg PO Q12H 14 Days Qty: 28 0RF No Action albuterol sulfate 90 mcg/actuation HFA aerosol inhaler 2 puff inhalation Q4-6H PRN (Reason: shortness of breath or wheezing) Qty: 6.7 0RF Referrals: Arthur Anderson MD [Physician] - 10 days Stand Alone Forms: Work/School Release
[2021-09-19] MEDS: cefTRIAXone sodium 500 MG, Lidocaine HCl 1 % MPF 1 ML IM (01:09)
[2021-09-19 02:57] LABS: CT PCR DETECTED (Not Detect.); NG PCR NOT DETECTED (Not Detect.)
== END 2021-09-19 01:33 | disposition home or self-care (01) ==
PROVIDERS: Emergency Provider Emergency Medicine Emergency Medical Services; PCP Internal Medicine
DX: N34.2 Other urethritis (principal); R30.0 Dysuria; R35.0 Frequency of micturition; R10.30 Lower abdominal pain, unspecified; Z79.899 Other long term (current) drug therapy
CPT/HCPCS: 36415; 80053; 81001; 85025; 87086; 87491; 87591; 96372; 99284; J0696

== ENCOUNTER 2021-09-26 19:40 | Emergency (ER) | payer OTHER, SELFPAY ==
[2021-09-26 20:08] VITALS: BP 133/67; PULSE 71; RESP 18; TEMP 36.4; O2SAT 98; BMI 28.3
== END 2021-09-26 21:01 | disposition left against medical advice (07) ==
PROVIDERS: Emergency Provider Emergency Medicine; PCP Internal Medicine
DX: U07.1 COVID-19 (principal); R42 Dizziness and giddiness
CPT/HCPCS: 99281; 99282

== ENCOUNTER 2021-10-03 14:25 | Emergency (ER) | payer OTHER, SELFPAY ==
--- NOTE | ~2021-10-03 | XR_ITS ---
EXAMINATION: XR CHEST CLINICAL INFORMATION: Covid pneumonia about 2 weeks ago. COMPARISON: Chest radiograph dated from 03/24/2017. TECHNIQUE: AP view of the chest was obtained. FINDINGS: Normal appearance of the cardiomediastinal silhouette. No focal airspace opacities, pleural effusions or pneumothorax. No acute osseous abnormalities. The visualized upper abdomen is within normal limits. XR/XR chest 1V IMPRESSION: No acute cardiopulmonary findings.
--- NOTE | ~2021-10-03 | CT_ITS ---
EXAMINATION: CT ANGIOGRAM OF THE CHEST WITH AND WITHOUT CONTRAST (CT PULMONARY ANGIOGRAM FOR PE) CLINICAL INFORMATION: Reason for Exam Covid positive 2 weeks ago. PE? COMPARISON: Chest radiograph 10/03/2021 TECHNIQUE: Prior to contrast administration, noncontrast localization images were obtained. Subsequently, multidetector volumetric imaging was performed from the thoracic inlet to below the diaphragms following the administration of 80 mL Omnipaque 350 intravenous contrast. No contrast reaction reported Sagittal, coronal, and MIP oblique sagittal reformatted images were obtained on the CT workstation, uploaded to PACS, and reviewed. This CT examination was performed using dose optimization techniques as appropriate, variously including the following: *Automated exposure control *Adjustment of mA and/or kV according to patient size (this includes techniques or standardized protocols for targeted exams where dose is matched to indication/reason for exam; i.e. extremities or head) *Use of iterative reconstruction technique Total exam dose-length product 321 mGy-cm FINDINGS: QUALITY OF STUDY/CONTRAST BOLUS: Borderline Satisfactory. Intermediate attenuation within the pulmonary arterial system. PULMONARY ARTERIES: Within the visualized pulmonary arterial system no intraluminal filling defects are noted to suggest pulmonary bullae. The main and central pulmonary arteries are normal in caliber. THORACIC AORTA: No aneurysm or dissection. Lung and pleura: No pleural effusions or pneumothoraces. No pulmonary consolidation. Mediastinum: Subcentimeter nonspecific heterogeneity is noted within the left and right lobes of the thyroid and is statistically overwhelmingly likely to be benign requiring no additional imaging follow-up. No mediastinal lymphadenopathy noted. Normal heart size. No pericardial thickening or pericardial fluid collections. Incidentally visualized abdominal structures: The adrenal glands are partially included in the image [id number] and are normal in appearance. CHEST WALL: No axillary lymphadenopathy. Skeletal structures: No suspicious skeletal lesions. CT/CT angio chest PE protocol IMPRESSION: *CT pulmonary angiogram negative for pulmonary emboli. No emboli identified within the main and central pulmonary arteries. This examination may be insensitive in detecting segmental or subsegmental pulmonary emboli secondary to slightly suboptimal pulmonary arterial opacification. *No acute cardiopulmonary abnormalities identified. No pulmonary consolidation. Lungs clear. VTE: negative
[2021-10-03 15:08] VITALS: BP 109/63; PULSE 80; RESP 16; TEMP 37; O2SAT 100; BMI 28.1
--- NOTE | 2021-10-03 15:36 | ECG_ITS ---
Test Reason : SOB Blood Pressure : / mmHG Vent. Rate : 078 BPM Atrial Rate : 078 BPM P-R Int : 154 ms QRS Dur : 092 ms QT Int : 372 ms P-R-T Axes : 061 014 027 degrees QTc Int : 424 ms Normal sinus rhythm with sinus arrhythmia Normal ECG When compared with ECG of 24-MAR-2017 23:24, No significant change was found Referred By: Darian Copeland Electronically Signed By:HANNAH SIDHU
--- NOTE | 2021-10-03 15:41 | ED_ITS ---
HPI - General Adult General Chief complaint: Upper Respiratory Symptoms Stated complaint: SOB sent by pcp Time Seen by Provider: 10/03/21 15:22 Source: patient Mode of arrival: ambulatory Limitations: no limitations History of Present Illness HPI narrative: 21-year-old male history of asthma presents to ED for shortness of breath when talking and walking since tested positive for COVID 2 weeks ago. Patient sent by provider for chest x-ray and further evaluation. Patient denies any leg swelling, calf pain, chest pain, pleurisy, recent long travel, or recent surgery. Patient denies any recent trauma. Patient states shortness on breath when walking and talking for two weeks. Related Data Previous Rx's Medication Instructions Recorded doxycycline hyclate 100 mg tablet 100 mg PO Q12H 14 Days #28 tab 09/19/21 metronidazole 500 mg tablet 500 mg PO BID 14 Days #28 tab 09/19/21 albuterol sulfate 90 mcg/actuation 2 puff INHALATION Q4-6H PRN #8.5 g 09/27/21 aerosol inhaler albuterol sulfate 2.5 mg (3 mL) INHALATION Q6H PRN 10/03/21 #15 ml nebulizers (Maria A LC Sprint #1 ea 10/03/21 Nebulizer Set) prednisone 20 mg tablet 40 mg PO DAILY 5 Days #10 tab 10/03/21 Allergies Allergy/AdvReac Type Severity Reaction Status Date / Time No Known Allergies Allergy Verified 10/03/21 14:02 Review of Systems Review of Systems: Shortness of breath when talking and on exertion for the past 2 weeks since tested positive for COVID. Yes all other systems are reviewed and are negative PMFSH Past Medical History Medical History (Updated 10/04/21 @ 02:27 by JORGE Guzman) Asthma GERD (gastroesophageal reflux disease) Surgical History (Updated 10/03/21 @ 13:44 by JAH Rich) No pertinent past surgical history Family History Family History Mother No problems noted. Father No problems noted. Social History Social History Housing: Apartment Alcohol intake: current Patient Tobacco Use Status: Never used Tobacco e-Cigarette/Vaping Use: Never Used Second Hand Smoke Exposure: No Advance Directives: No Advance Directives Information Provided: No service: No Current occupational status: employed Cognitive needs: No Hearing needs: No Vision needs: No Physical Exam ED Vital Signs: Vital Signs - 24 hr 10/03/21 15:08 10/03/21 20:51 Temperature 98.6 F Pulse Rate 80 85 Respiratory Rate 16 20 Blood Pressure 109/63 134/84 Pulse Oximetry 100 98 BMI result Body Mass Index 28.1 Const General: cooperative, healthy appearing, comfortable, no acute distress, well developed, alert, awake and Physically active Orientation/consciousness: patient oriented x3 HENMT Head: Yes normal to inspection, Yes No palpable skull fracture present, Yes normocephalic, Yes atraumatic and No abrasion Eyes General: appearance normal, both eyes and all related structures Neck Neck: Yes normal visual inspection, Yes full ROM, Yes no lymphadenopathy, Yes no meningeal signs, Yes trachea midline, Yes supple, No anterior neck swelling and No tender Chest Chest palpation & inspection: normal inspection of the chest and normal palpa tion of entire chest wall Resp Other: When speaking patient has to catch his breath and pause. Lungs are clear. Effort & Inspection: normal respiratory effort Auscultation: clear to auscultation bilaterally Cardio Jugular venous distension: no JVD Heart sounds: S1 normal heart sound present and S2 normal heart sound present GI Inspection: Yes normal to inspection and No abdominal wall ecchymosis Palpation (GI): Soft to palpation, not firm, nontender, no guarding and not rigid General: No CVA tenderness and Yes no CVA tenderness Back/Spine/Pelvis Back: no CVA tenderness, No CVA tenderness and No back tenderness Skin General skin exam: no rashes or lesions noted and elasticity normal Neuro General: patient oriented x3, gait normal and no meningeal signs Cranial nerves: Yes CN's II-XII intact bilaterally Extrem Other: Lower extremities negative for swelling, pitting edema, or calf tenderness General: Yes normal to inspection and Yes full ROM Psych Appearance: grossly normal, well kempt and not disheveled Course Course Course Narrative: Patient vital signs are stable. Patient is not any distress. Patient is not in any Tripod position. Vital signs are stable. Patient probably developing long haul COVID symptoms but will do chest x-ray and also labs EKG troponin and D- dimer to see for risk of PE. Patient does not have any accessory muscle use. Reevaluation(s) Reevaluation #1: EKG negative for STEMI. Troponin BNP negative after two weeks of symptoms. D- dimer came back negative. Prep score 0. Heart score 0. Chest x-ray negative for COVID pneumonia. Nurse will do saturation ambulation. Time: 17:27 Reevaluation #2: On oxygen ambulatory test patient O2 saturation maintained around 96%, but still states feeling shortness of breath and cannot talk with what seems to be labored speech. Patient also had normal heart rate while walking. With negative D- dimer and normal to self very unlikely PE . It was discussed unlikely patient having PE but mother would prefer patient to have chest CTA imaging to rule out PE Mother informed me that her herself when she had COVID she has shortness of breath for many months after having COVID. Patient probably having similar patient has mother long-hanadeen DOHERTY. Time: 18:59 Reevaluation #3: Patient to have CT scan done and then he informed radiology staff that last time he had contrast he vomited and thought he was choking. Patient has had CT scan this before in the past and there is no note of allergic reaction as per [facility] records. Mother states patient has not had allergic reaction to IV contrast, but due to this information will do allergic reaction premedication and patient would have to wait [address] scan could be done. Patient and mother agreeable to plan. Time: 20:00 Additional Reevaluation(s): Benadryl was given and patient had a anxious reaction. Patient started hyperventilating, tearing, and speaking in and shortness sentences. Patient then seem like it is a choking sensation. I spoke to patient and calmed him down. Symptoms improved and was given Ativan to relax. Patient's presenting symptoms similar to how he described having CT scan reaction in the past even though it is only medical center notes and mother states he never had allergic reaction to IV contrast and never given medication. Mother was called and informed her of episode which occurred with Benadryl and mother agreeable that this is patient's anxiety reaction most likely patient never had any his allergic reaction to IV contrast. Radiology check was made aware and still recommend plan for patient still have premedicated Benadryl Solu-Medrol and Pepcid. Upon reflection or patient was walking around ED and O2 saturation remained normal at 96% labored breathing most likely was due to anxiety, but mother preferred patient to get a chest CTA done to rule out PE due to patient having shortness of breath on exertion and talking for the past 2 weeks. 10/03/2021 21:11. Patient had another anxiety reaction during ED visit while waiting for chest CTA, but then resolved. Case signed stephen to Dr. Bui. Medical Decision Making MDM Narrative Medical decision making narrative: Jose Raul parmar Lab Data Result diagrams: 10/03/21 16:37 10/03/21 16:37 Labs: Lab Results 10/03/21 10/03/21 10/03/21 Range/Units 16:37 16:37 16:37 WBC 9.5 (4.8-10.8) X10*3/uL RBC 5.57 (4.60-5.80) X10*6/uL Hgb 16.1 (14.0-18.0) g/dl Hct 47.5 (42.0-52.0) % MCV 85.3 (80.0-98.0) fL MCH 28.9 (27.0-33.0) pg MCHC 33.9 (31.0-36.0) g/dl RDW 12.6 (11.0-16.0) % Plt Count 341 D (160-400) X10*3/uL MPV 9.2 L (9.4-12.4) fL Immature Gran % (Auto) 0.3 (0.0-0.4) % Neut % (Auto) 70.7 (45-73) % Lymph % (Auto) 21.0 (20-40) % Sioux % (Auto) 7.2 (2-11) % Eos % (Auto) 0.2 (0-4) % Baso % (Auto) 0.6 (0-2) % Lymph # (Auto) 2.0 (1.2-4.9) X10*3/uL Sioux # (Auto) 0.7 (0.1-1.2) X10*3/uL Eos # (Auto) 0.0 (0.0-0.4) X10*3/uL Baso # (Auto) 0.1 (0.0-0.2) X10*3/uL Abs Immat Gran (auto) 0.03 (0.00-0.03) X10*3/uL Absolute Neuts (auto) 6.7 (2.0-8.3) x10*3/uL Absolute Nucleated RBC 0.000 (0.0-0.012) X10*3/uL Nucleated RBC % (auto) 0.0 (0.0-0.2) /100WBC PT 14.1 H (9.9-13.0) SEC INR 1.2 H (0.9-1.1) APTT 32.8 (24.1-38.0) SEC D-Dimer High Sensitivty < 150 NG/ML Sodium 139 (135-145) mmol/L Potassium 4.5 (3.3-5.1) mmol/L Chloride 104 (96-108) mmol/L Carbon Dioxide 28 (22-29) mmol/L Anion Gap 12 (12-20) BUN 10 (9-16) mg/dL Creatinine 0.83 (0.5-1.4) mg/dL Estim Creat Clear Calc 133.4 Estimated GFR > 60 Random Glucose 91 (60-115) mg/dL Calcium 10.3 H (8.4-10.2) mg/dL Total Bilirubin 0.8 (0.0-1.0) mg/dL AST 22 (5-37) U/L ALT 36 (0-40) U/L Alkaline Phosphatase 80 D (39-117) U/L Troponin I High Sens (<3.5-35.0) ng/L B-Natriuretic Peptide (<100) pg/mL Total Protein 7.2 (6.5-8.0) g/dL Albumin 4.8 (3.5-5.0) g/dL 10/03/21 Range/Units 16:37 WBC (4.8-10.8) X10*3/uL RBC (4.60-5.80) X10*6/uL Hgb (14.0-18.0) g/dl Hct (42.0-52.0) % MCV (80.0-98.0) fL MCH (27.0-33.0) pg MCHC (31.0-36.0) g/dl RDW (11.0-16.0) % Plt Count (160-400) X10*3/uL MPV (9.4-12.4) fL Immature Gran % (Auto) (0.0-0.4) % Neut % (Auto) (45-73) % Lymph % (Auto) (20-40) % Sioux % (Auto) (2-11) % Eos % (Auto) (0-4) % Baso % (Auto) (0-2) % Lymph # (Auto) (1.2-4.9) X10*3/uL Sioux # (Auto) (0.1-1.2) X10*3/uL Eos # (Auto) (0.0-0.4) X10*3/uL Baso # (Auto) (0.0-0.2) X10*3/uL Abs Immat Gran (auto) (0.00-0.03) X10*3/uL Absolute Neuts (auto) (2.0-8.3) x10*3/uL Absolute Nucleated RBC (0.0-0.012) X10*3/uL Nucleated RBC % (auto) (0.0-0.2) /100WBC PT (9.9-13.0) SEC INR (0.9-1.1) APTT (24.1-38.0) SEC D-Dimer High Sensitivty NG/ML Sodium (135-145) mmol/L Potassium (3.3-5.1) mmol/L Chloride (96-108) mmol/L Carbon Dioxide (22-29) mmol/L Anion Gap (12-20) BUN (9-16) mg/dL Creatinine (0.5-1.4) mg/dL Estim Creat Clear Calc Estimated GFR Random Glucose (60-115) mg/dL Calcium (8.4-10.2) mg/dL Total Bilirubin (0.0-1.0) mg/dL AST (5-37) U/L ALT (0-40) U/L Alkaline Phosphatase (39-117) U/L Troponin I High Sens < 3.5 (<3.5-35.0) ng/L B-Natriuretic Peptide < 10 (<100) pg/mL Total Protein (6.5-8.0) g/dL Albumin (3.5-5.0) g/dL ECG Data Interpretation: Normal sinus rhythm. Ventricular 78. Appearance of 154. QRS 92. QTC 424. Negative STEMI Discharge Plan Discharge Clinical Impression: COVID-19 star lee Patient Disposition: Home, Self-Care Instructions: COVID-19 (Coronavirus Disease 2019) (ED) Additional Instructions: You need to follow-up with your primary care provider and referral to pulmonology for chronic shortness of breath due to COVID diagnosis. Return to the ED for any calf pain, coughing up blood, chest pain, shortness of breath, weakness, dizziness, or any other concerning symptoms. Recommend continue taking albuterol inhaler as needed. Prescriptions: No Action albuterol sulfate 90 mcg/actuation HFA aerosol inhaler 2 puff inhalation Q4-6H PRN (Reason: shortness of breath or wheezing) Qty: 8.5 0RF metronidazole 500 mg tablet 500 mg PO BID 14 Days Qty: 28 0RF doxycycline hyclate 100 mg tablet 100 mg PO Q12H 14 Days Qty: 28 0RF prednisone 20 mg tablet 40 mg PO DAILY 5 Days Qty: 10 0RF (DME) Maria A LC Sprint Nebulizer Set Misc See Rx Instructions .Route Qty: 1 0RF Rx Instructions: As directed albuterol sulfate 2.5 mg /3 mL (0.083 %) solution for nebulization 2.5 mg inhalation Q6H PRN (Reason: bronchospasm) Qty: 15 1RF Stand Alone Forms: Work/School Release Print Language: [place]
[2021-10-03 16:43] LABS: MANUAL DIFF FLAG NO
[2021-10-03 16:45] LABS: Basophils Absolute Auto 0.1 X10*3/uL (0.0-0.2); Basophils Percent Auto 0.6 % (0-2); Eosinophils Percent Auto 0.2 % (0-4); Hematocrit 47.5 % (42.0-52.0); Hemoglobin 16.1 g/dl (14.0-18.0); Imm Gran Abs Auto 0.03 X10*3/uL (0.00-0.03); Imm Gran Pct Auto 0.3 % (0.0-0.4); Mean Corpuscular HGB Conc 33.9 g/dl (31.0-36.0); Mean Corpuscular Hemoglobin 28.9 pg (27.0-33.0); Mean Corpuscular Volume 85.3 fL (80.0-98.0); Mean Platelet Volume 9.2 fL (9.4-12.4); Monocytes Absolute Auto 0.7 X10*3/uL (0.1-1.2); Monocytes Percent Auto 7.2 % (2-11); Neutrophils Absolute Auto 6.7 x10*3/uL (2.0-8.3); Neutrophils Percent Auto 70.7 % (45-73); Platelet Count 341 X10*3/uL (160-400); Red Blood Count 5.57 X10*6/uL (4.60-5.80); Red Cell Distribution Width 12.6 % (11.0-16.0); White Blood Count 9.5 X10*3/uL (4.8-10.8)
[2021-10-03 16:52] LABS: INTERNATIONAL NORM RATIO 1.2 (0.9-1.1); Prothrombin Time 14.1 SEC (9.9-13.0)
[2021-10-03 16:55] LABS: Partial Thromboplastin Time 32.8 SEC (24.1-38.0)
[2021-10-03 16:57] LABS: D Dimer High Sensitivity < 150 NG/ML
[2021-10-03 17:00] LABS: Alanine Aminotransferase 36 U/L (0-40); Albumin Level 4.8 g/dL (3.5-5.0); Alkaline Phosphatase 80 U/L (39-117); Anion Gap 12 (12-20); Aspartate Amino Transferase 22 U/L (5-37); Bilirubin Total 0.8 mg/dL (0.0-1.0); Blood Urea Nitrogen 10 mg/dL (9-16); Calcium 10.3 mg/dL (8.4-10.2); Carbon Dioxide 28 mmol/L (22-29); Chloride 104 mmol/L (96-108); Creatinine Clr Calc Pharmacy 133.4; Estimated Glomerular Filt Rate > 60; Glucose Random 91 mg/dL (60-115); Potassium 4.5 mmol/L (3.3-5.1); Sodium 139 mmol/L (135-145); Total Protein 7.2 g/dL (6.5-8.0)
[2021-10-03 17:05] LABS: B Type Natriuretic Peptide < 10 pg/mL (<100); Troponin-I High Sensitivity < 3.5 ng/L (<3.5-35.0)
[2021-10-03] MEDS: diphenhydrAMINE HCL 50 MG/ML VIAL IVPUSH (20:35)
[2021-10-03] MEDS: methylPREDNISolone Sod Succ 125 MG/2 ML VIAL IVPUSH (20:36)
[2021-10-03] MEDS: Famotidine/PF 20 MG/2 ML VIAL IVPUSH (20:36)
[2021-10-03 20:51] VITALS: BP 134/84; PULSE 85; RESP 20; O2SAT 98
[2021-10-03] MEDS: LORazepam 1 MG TABLET PO (20:52)
--- NOTE | 2021-10-03 21:29 | PC.NURSE ---
WHEN GIVING BENADRYL PT BECAME VERY ANXIOUS, TAKING DEEP BREATHS, HOLDING RIGHT ARM, HOLDING CHEST, TEARY EYES. WHEN QUESTIONED ABOUT HOW HE WAS FEELING. PT JUST STARTED TEARING UP AND WOULD NOT ANSWER. JUST STATED I HAVE TO CALM DOWN. PT REASSURED THAT MEDS WILL NOT HURT HIM. HE MAY FEEL A LITTLE SLEEPY FROM THE BENADRYL. PROVIDER CALLED TO BEDSIDE. MED WITH ATIVAN 1MG PO FOR ANXIETY. ONCE PT CALMED DOWN THE PEPCID AND SOLUMEDROL WAS GIVEN. PT DID BECOME ANXIOUS DURING MEDS HOLDING HEAD AND TAKING DEEP BREATHS BUT NOT BAD PREVIOUSLY. VSS.
[2021-10-04] MEDS: diphenhydrAMINE HCL 50 MG/ML VIAL IVPUSH (00:37)
[2021-10-04] MEDS: methylPREDNISolone Sod Succ 125 MG/2 ML VIAL IVPUSH (00:37)
[2021-10-04] MEDS: iohexoL 350 MG/ML 100 ML INFUS..BTL 65 ML IV (01:39)
[2021-10-04 02:09] VITALS: BP 106/68; PULSE 88; RESP 16; TEMP 36.9; O2SAT 98
== END 2021-10-04 04:01 | disposition home or self-care (01) ==
PROVIDERS: Physician Assistant; Emergency Provider Emergency Medicine; PCP Internal Medicine
DX: U07.1 COVID-19 (principal); J45.909 Unspecified asthma, uncomplicated
CPT/HCPCS: 36415; 71045; 71275; 80053; 83880; 84484; 85025; 85379; 85610; 85730; 93005; 96374; 96375; 96376; 99284; J1200; J2930; Q9967

== ENCOUNTER 2022-04-05 20:40 | Emergency (ER) | payer OTHER, SELFPAY ==
[2022-04-05 21:36] VITALS: BP 122/71; PULSE 88; RESP 16; TEMP 36.8; O2SAT 99; BMI 29.1
--- OUTSIDE RECORDS SUMMARY | 2022-04-05 23:03 | XMS_ITS | Continuity of Care Document ---
:2000 Author Organization [facility] Address [address] [place] [id number]- Care Team Providers Name Role Phone Not on Staff, PCP Primary Care Physician Unavailable Encounter [facility] Date(s): 08/21/21 - 09/20/21 [facility] [address] [place] [id number]- [place] Allergies, Adverse Reactions, Alerts No Known Medication Allergies Problem List Condition Effective Dates Status Health Status Informant Obese class I(Confirmed) Active
--- OUTSIDE RECORDS SUMMARY | 2022-04-05 23:03 | XMS_ITS | Continuity of Care Document ---
:2000 Author Organization [facility] Address [address] [place] [id number]- Care Team Providers Name Role Phone Not on Staff, PCP Primary Care Physician Unavailable Encounter [facility] Date(s): 08/20/21 - 09/19/21 [facility] [address] [place] [id number]- Attending Physician: Krysta Baron Admitting Physician: Krysta Baron Referring Physician: Krysta Baron Allergies, Adverse Reactions, Alerts No Known Medication Allergies Problem List Condition Effective Dates Status Health Status Informant Obese class I(Confirmed) Active
--- OUTSIDE RECORDS SUMMARY | 2022-04-05 23:03 | XMS_ITS | Continuity of Care Document ---
:2000 Author Organization [facility] Address [address] [place] [id number]- Care Team Providers Name Role Phone Not on Staff, PCP Primary Care Physician Unavailable Encounter [facility] Date(s): 08/22/21 - 09/21/21 [facility] [address] [place] [id number]- [place] Allergies, Adverse Reactions, Alerts No Known Medication Allergies Problem List Condition Effective Dates Status Health Status Informant Obese class I(Confirmed) Active
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
[2022-04-06] MEDS: Ibuprofen 600 MG TABLET PO (00:29)
[2022-04-06] MEDS: oxyCODONE HCl Immed Release 5 MG TABLET PO (00:29)
[2022-04-06] MEDS: Fluorescein Sodium STRIP 1 STRIP EYE-RIGHT (00:30)
[2022-04-06] MEDS: Erythromycin Base 0.5% Oph Oin 1 GM TUBE 1 CM EYE-RIGHT (00:30)
[2022-04-06] MEDS: Tetracaine HCl/PF 0.5% Oph Sol 4 ML DROPS 2 DROP EYE-RIGHT (00:30)
== END 2022-04-06 00:47 | disposition home or self-care (01) ==
PROVIDERS: Emergency Provider Emergency Medicine Emergency Medical Services; PCP Internal Medicine
DX: S05.01XA Injury of conjunctiva and corneal abrasion without foreign body, right eye, initial encounter (principal); S05.91XA Unspecified injury of right eye and orbit, initial encounter; H57.11 Ocular pain, right eye; Y29.XXXA Contact with blunt object, undetermined intent, initial encounter; Y93.9 Activity, unspecified; Y92.9 Unspecified place or not applicable; Y99.9 Unspecified external cause status; Z79.899 Other long term (current) drug therapy
CPT/HCPCS: 99283

== ENCOUNTER 2022-05-15 22:02 | Emergency (ER) | payer OTHER, SELFPAY ==
--- NOTE | ~2022-05-15 | XR_ITS ---
EXAMINATION: XR CHEST CLINICAL INFORMATION: Cough, shortness of breath COMPARISON: 10/03/2021 TECHNIQUE: 2 views of the chest were obtained. FINDINGS: No significant abnormality is noted involving the heart, lungs, mediastinum, bony thorax or soft tissues. XR/XR chest 2V IMPRESSION: Unremarkable examination.
[2022-05-15 22:08] VITALS: BP 129/83; PULSE 79; RESP 18; TEMP 36.9; O2SAT 99; BMI 29.9
--- NOTE | 2022-05-15 23:25 | ECG_ITS ---
Test Reason : SOB Blood Pressure : / mmHG Vent. Rate : 071 BPM Atrial Rate : 071 BPM P-R Int : 140 ms QRS Dur : 098 ms QT Int : 384 ms P-R-T Axes : 053 035 032 degrees QTc Int : 417 ms Normal sinus rhythm Normal ECG When compared with ECG of 03-OCT-2021 16:06, No significant change was found Referred By: Mariangel Reed Electronically Signed By:SERENITY REED MD
[2022-05-15 23:33] LABS: Influenza A PCR NEGATIVE (Negative); Influenza B PCR NEGATIVE (Negative); Resp Syncy Virus RNA Qual PCR NEGATIVE (Negative); SARS COV2 PCR INHOUSE NEGATIVE (Negative)
--- NOTE | 2022-05-15 23:40 | ED_ITS ---
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 States stepped out of the room and felt mildly lightheaded. Symptoms resolved/improved at present. Admits to similar symptoms in the past. Denies fever, cough, abdominal pain, nausea, vomiting, diarrhea, headache, syncope, recent travel, sick contacts, history of clots Onset (ago): hour(s) Related Data Previous Rx's Medication Instructions Recorded doxycycline hyclate 100 mg tablet 100 mg PO Q12H 14 days #28 tabs 09/19/21 metronidazole 500 mg tablet 500 mg PO BID 14 days #28 tabs 09/19/21 albuterol sulfate 90 mcg/actuation 2 puff inhalation Q4-6H PRN 09/27/21 aerosol inhaler shortness of breath or wheezing #8.5 grams albuterol sulfate 2.5 mg/3 mL 2.5 mg (3 mL) inhalation Q6H PRN 10/03/21 (0.083 %) solution for nebulization bronchospasm #15 mL nebulizers (Maria A LC Sprint #1 ea 10/03/21 Nebulizer Set) prednisone 20 mg tablet 40 mg PO DAILY 5 days #10 tabs 10/03/21 erythromycin 5 mg/gram (0.5 %) eye 1 appl ophthalmic-Right TID 7 days 04/06/22 ointment #3.5 grams oxycodone 5 mg tablet 5 mg PO Q4H PRN pain #14 tabs 04/06/22 Allergies Allergy/AdvReac Type Severity Reaction Status Date / Time No Known Allergies Allergy Verified 04/05/22 21:38 Review of Systems Review of Systems: Constitutional: No Fever, No Chills, No Fatigue, No Malaise ENT/Mouth: NNo Ear Pain, No Nasal Congestion, No Sinus Pain, No Hoarseness, No sore throat, No Rhinorrhea, No Swallowing Difficulty Eyes: No Eye Pain, No Swelling, No Redness, No Vision Changes Cardiovascular: + Chest discomfort, + SOB, No Dyspnea on Exertion, No Edema, No Palpitations Respiratory: No Cough, No Sputum, No Dyspnea Gastrointestinal: No Nausea, No Vomiting, No Diarrhea, No Constipation, + Abdominal pain Genitourinary:No Dysuria, No Urinary Frequency, No Hematuria, No Urinary Incontinence/retention Musculoskeletal: No joint pain, No Myalgias, No Joint Swelling Skin: No Skin Lesions, No rash Neuro: No Weakness, No Numbness, No Paresthesias, No Loss of Consciousness, + lightheaded, No Headache Yes all other systems are reviewed and are negative Constitutional: Constitutional: Reports as per HPI Neurologic: Denies Abnormal speech present [facility] Past Medical History Attestation statement: The following information was validated with the patient. Medical History Asthma GERD (gastroesophageal reflux disease) Surgical History No pertinent past surgical history Family History Family History Mother No problems noted. Father No problems noted. Social History Social History Housing: Apartment Alcohol intake: current Patient Tobacco Use Status: Never used Tobacco e-Cigarette/Vaping Use: Never Used Second Hand Smoke Exposure: No Advance Directives: No service: No Current occupational status: employed Cognitive needs: No Hearing needs: No Vision needs: No Physical Exam ED Vital Signs: Vital Signs - 24 hr 05/15/22 22:08 Temperature 98.4 F Pulse Rate 79 Respiratory Rate 18 Blood Pressure 129/83 Pulse Oximetry 99 Oxygen Delivery Method Room Air BMI result Body Mass Index 29.9 Const General: cooperative, healthy appearing, comfortable, no acute distress and well developed Orientation/consciousness: patient oriented x3 Limitations: no limitations HENMT Head: Yes normal to inspection and Yes atraumatic Ears: hearing grossly normal bilaterally General nose exam: Normal external nose present Face and sinus: Yes normal facial exam Throat: Yes posterior oropharynx normal, Yes tonsils normal, Yes uvula midline, No uvula laterally displaced and No uvular edema Eyes General: appearance normal, both eyes and all related structures Pupils: Equal, round and reactive pupils present EOM: EOMs intact bilaterally Neck Neck: Yes normal visual inspection and Yes no meningeal signs Resp Effort & Inspection: normal respiratory effort, no respiratory distress and no stridor Auscultation: clear to auscultation bilaterally, no crackles, no rales and no rhonchi Cardio Rate: regular rate Heart sounds: S1 normal heart sound present and S2 normal heart sound present GI Inspection: Yes normal to inspection Palpation (GI): Soft to palpation, nontender, no guarding and not rigid Skin Rashes: no rashes Wounds: no wounds Neuro General: patient oriented x3, gait normal, tone normal, no meningeal signs, no focal motor deficits and CN's II-XI intact bilaterally Cranial nerves: Yes CN's II-XII intact bilaterally and Yes Equal, round and reactive pupils present Cognition (Neuro): normal cognition Speech: No Abnormal speech present Gait exam (Neuro): Normal gait present Motor exam (neuro): 5/5 motor strength present throughout, Pronator motor function not present and no tremor noted Coordination: [id number] test normal Romberg Test: Negative Extrem General: Yes normal to inspection, Yes no pedal edema and Yes no calf tenderness Course Course Course Narrative: -0021--labs unremarkable. T bili pending (will be delay due to lab issue/transition) however will not hold patient for results -troponin negative. COVID-19/influenza/RSV negative. CXR unremarkable >> patient is still asymptomatic on re-evaluation. Results discussed with patient including worrisome signs and symptoms and strict return precautions, and when to return to the emergency department. They kavitha balized understanding and feel safe for discharge at this time. Medical Decision Making Medical Decision Making MDM Narrative: 22-year-old male with past medical history of asthma, GERD, [place], presenting to the ED complaining sudden onset epigastric abdominal burning, mild chest discomfort and SOB feeling like he could not catch his breath. Asymptomatic at present. Nontoxic appearing, no focal neuro deficits, lungs CTA. Concern for anxiety/panic reaction vs near vasovagal syncope vs viral illness. Symptoms atypical for ACS/PE Plan: EKG, labs, CXR, COVID 19/influenza/RSV testing, IVF Differential Diagnoses: Differential diagnosis (As above) Lab Attestation: I reviewed the patient's lab results. Independent interpretation of EKG, rhythm strip, radiology study: Independent interp EKG,rhythm strip, radiology study I performed an independent interpretation of the: EKG My interpretation is normal sinus rhythm at a rate of 71. GA interval 140. QTC 417. No STEMI. Discharge Plan Discharge Clinical Impression: Shortness of breath Patient Disposition: Home, Self-Care Instructions: Anxiety (ED), Shortness of Breath (ED) Additional Instructions: Your blood work was reassuring. This was likely an anxiety/panic attack/reaction. you tested negative for COVID-19, flu, and RSV. Your x-ray was unremarkable. Please have close follow-up with her doctor. Increase fluid intake. If symptoms persist or worsen return to the emergency department Prescriptions: No Action albuterol sulfate 90 mcg/actuation HFA aerosol inhaler 2 puff inhalation Q4-6H PRN (Reason: shortness of breath or wheezing) Qty: 8.5 0RF metronidazole 500 mg tablet 500 mg PO BID 14 Days Qty: 28 0RF doxycycline hyclate 100 mg tablet 100 mg PO Q12H 14 Days Qty: 28 0RF oxycodone 5 mg tablet 5 mg PO Q4H PRN (Reason: pain) Qty: 14 0RF Rx Instructions: Patient may request partial fill; Partial Fill upon patient request. erythromycin 5 mg/gram (0.5 %) ointment 1 appl ophthalmic-Right TID 7 Days Qty: 3.5 0RF prednisone 20 mg tablet 40 mg PO DAILY 5 Days Qty: 10 0RF (DME) Maria A LC Sprint Nebulizer Set Misc See Rx Instructions .Route Qty: 1 0RF Rx Instructions: As directed albuterol sulfate 2.5 mg /3 mL (0.083 %) solution for nebulization 2.5 mg inhalation Q6H PRN (Reason: bronchospasm) Qty: 15 1RF Referrals: Po,Brandee Gomez MD [Primary Care Provider] - 2 days Stand Alone Forms: Work/School Release
[2022-05-15 23:54] LABS: Basophils Percent Auto 0.5 % (0-2); Eosinophils Absolute Auto 0.1 X10*3/uL (0.0-0.4); Eosinophils Percent Auto 0.6 % (0-4); Hematocrit 45.3 % (42.0-52.0); Hemoglobin 15.5 g/dl (14.0-18.0); Imm Gran Abs Auto 0.01 X10*3/uL (0.00-0.03); Imm Gran Pct Auto 0.1 % (0.0-0.4); Lymphocytes Absolute Auto 1.9 X10*3/uL (1.2-4.9); Lymphocytes Percent Auto 22.6 % (20-40); MANUAL DIFF FLAG NO; Mean Corpuscular HGB Conc 34.2 g/dl (31.0-36.0); Mean Corpuscular Hemoglobin 29.1 pg (27.0-33.0); Mean Platelet Volume 9.7 fL (9.4-12.4); Monocytes Absolute Auto 0.6 X10*3/uL (0.1-1.2); Monocytes Percent Auto 7.4 % (2-11); Neutrophils Absolute Auto 5.8 x10*3/uL (2.0-8.3); Neutrophils Percent Auto 68.8 % (45-73); Platelet Count 273 X10*3/uL (160-400); Red Blood Count 5.33 X10*6/uL (4.60-5.80); Red Cell Distribution Width 12.5 % (11.0-16.0); White Blood Count 8.5 X10*3/uL (4.8-10.8)
[2022-05-16 00:14] LABS: Alanine Aminotransferase 20 U/L (0-40); Albumin Level 4.6 g/dL (3.5-5.0); Alkaline Phosphatase 75 U/L (39-117); Anion Gap 15 (12-20); Aspartate Amino Transferase 22 U/L (5-37); Bilirubin Direct 0.3 mg/dL (0.0-0.5); Blood Urea Nitrogen 15 mg/dL (9-16); Calcium 9.3 mg/dL (8.4-10.2); Carbon Dioxide 23 mmol/L (22-29); Chloride 106 mmol/L (96-108); Creatinine Clr Calc Pharmacy 134.5; Estimated Glomerular Filt Rate > 60; Glucose Random 88 mg/dL (60-115); Magnesium 2.4 mg/dL (1.6-2.6); Sodium 140 mmol/L (135-145); Total Protein 6.9 g/dL (6.5-8.0)
[2022-05-16 00:16] LABS: Troponin-I High Sensitivity < 3.5 ng/L (<3.5-35.0)
[2022-05-16 01:37] LABS: Bilirubin Total 0.7 mg/dL (0.0-1.0)
== END 2022-05-16 00:30 | disposition home or self-care (01) ==
PROVIDERS: Physician Assistant; Emergency Provider Internal Medicine; PCP Internal Medicine
DX: R05.9 Cough, unspecified (principal); R06.02 Shortness of breath; R10.13 Epigastric pain; Z20.822 Contact with and (suspected) exposure to COVID-19; Z79.899 Other long term (current) drug therapy
CPT/HCPCS: 0241U; 36415; 71046; 80048; 80076; 83735; 84484; 85025; 93005; 99283

== ENCOUNTER 2022-07-24 12:29 | Outpatient (REF) | payer OTHER, SELFPAY ==
--- NOTE | ~2022-07-24 | US_ITS ---
EXAMINATION: US RETROPERITONEAL LIMITED (RENAL ONLY) CLINICAL INFORMATION: Calculus of kidney. COMPARISON: Ultrasound abdomen complete with elastography 07/30/2019. CT abdomen and pelvis 08/25/2020. Limited abdominal ultrasound 08/24/2020. TECHNIQUE: Real-time imaging of the kidneys. FINDINGS: RIGHT KIDNEY: 11.3 x 5.0 x 5.4 cm (SAG x AP x TRV). The kidney is normal in size, contour, and echogenicity. Renal cortical thickness is normal. There is a 1 cm cyst in the upper pole. No renal calculi or hydronephrosis. LEFT KIDNEY: 10.4 x 5.5 x 6.0 cm (SAG x AP x TRV). The kidney is normal in size, contour, and echogenicity. Renal cortical thickness is normal. No calculi or focal parenchymal lesions. No hydronephrosis. US/US renal BI IMPRESSION: Small right renal cyst. No stone seen.
== END 2022-07-24 12:30 | disposition home or self-care (01) ==
LOC: HO.US 12:29
PROVIDERS: Visit Provider Internal Medicine
DX: N20.0 Calculus of kidney (principal)
CPT/HCPCS: 76775

== ENCOUNTER → 2022-09-05 14:57 | Outpatient (BNVA) | payer OTHER, SELFPAY | PROVIDERS: PCP Internal Medicine; Visit Provider Urology | DX: N28.1 Cyst of kidney, acquired (principal); R30.0 Dysuria | CPT/HCPCS: 99202 ==

== ENCOUNTER 2023-03-12 04:24 | Emergency (ER) | payer OTHER, SELFPAY ==
[2023-03-12 04:30] VITALS: BP 121/87; PULSE 78; RESP 20; TEMP 36.5; O2SAT 98; BMI 29.1
[2023-03-12 06:00] VITALS: BP 128/85; PULSE 76; RESP 16; TEMP 36.8; O2SAT 97
--- NOTE | 2023-03-12 07:43 | ED.GENADULT ---
HPI - General Adult General Chief complaint: Dental/Oral Stated complaint: tooth pain Time Seen by Provider: 03/12/23 07:43 Source: patient Mode of arrival: ambulatory Limitations: no limitations History of Present Illness HPI narrative: Patient is a 22 year old assigned male at with a history of [place] and asthma presenting to the emergency department today with left sided dental pain. Patient states that over the last few days he has had left lower tooth pain. Patient denies any dizziness, lightheadedness, abdominal pain, nausea, vomiting, fever, chills, blurry vision, double vision, loss of vision, chest pain, difficulty breathing, shortness of breath, back pain, night sweats, pain with urination, increased urinary frequency, increased urinary urgency, blood in his urine or stool, syncope or a near syncopal episode, recent trauma or falls, bowel incontinence, bladder incontinence, bowel retention, bladder retention, or any other complaints at this time. Onset (ago): day(s) Location: mouth Radiation: non-radiation Severity: mild Severity scale (1-10): 3 Quality: aching and dull Pain Consistency: constant Relieving factors: none Exacerbating factors: none Associated symptoms: denies other symptoms Treatments prior to arrival: NSAID Related Data Previous Rx's Medication Instructions Recorded albuterol sulfate 90 mcg/actuation 2 puff inhalation Q6H PRN 09/16/22 aerosol inhaler (Ventolin HFA) shortness of breath or wheezing #8.5 grams chlorhexidine gluconate 0.12 % 15 ml buccal BID #118 mL 03/12/23 mouthwash (Peridex) lidocaine HCl 2 % mucosal solution 1 appl mucous membrane BID #100 mL 03/12/23 (Lidocaine Viscous) naproxen 500 mg tablet 500 mg PO BID 7 days #14 tabs 03/12/23 penicillin V potassium 500 mg 500 mg PO BID 10 days #20 tabs 03/12/23 tablet Allergies Allergy/AdvReac Type Severity Reaction Status Date / Time No Known Allergies Allergy Verified 09/16/22 12:54 Review of Systems Constitutional: Constitutional: Reports no additional constitutional complaints, Denies chills, Denies fever(s) and Denies night sweats Eyes: Eyes: Reports no additional eye complaints, Denies blurry vision, Denies change in vision, Denies diplopia, Denies eye discharge, Denies loss of vision and Denies eye pain ENT: Denies dizziness Comments: left lower dental pain Cardiovascular: Cardiovascular: Reports no additional cardiovascular complaints, Denies chest pain, Denies lightheadedness, Denies Loss of Consciousness and Denies dyspnea Respiratory: Respiratory: Reports no additional respiratory complaints and Denies dyspnea Gastrointestinal: Gastrointestinal: Reports no additional gastrointestinal complaints, Denies abdominal pain, Denies melena, Denies hematochezia, Denies change in bowel habits and Denies change in stool character Genitourinary: Genitourinary: Reports no additional male genitourinary complaints, Denies hematuria, Denies oliguria, Denies difficulty urinating, Denies dysuria, Denies urinary frequency, Denies urinary hesitancy, Denies urinary incontinence and Denies urinary urgency Musculoskeletal: Musculoskeletal: Reports no additional musculoskeletal complaints, Denies numbness and Denies tingling Neurologic: Denies dizziness, Denies loss of vision, Denies numbness and Denies tingling Psychiatric: Psychiatric: Reports no additional psychiatric complaints Endocrine: Endocrine: Reports no additional endocrine complaints Hematologic/Lymphatic: Hematologic/Lymphatic: Reports no additional hematologic/lymphatic complaints Allergic/Immunologic: Allergic/Immunologic: Reports no additional allergic/immunologic complaints [facility] Past Medical History Attestation statement: The following information was validated with the patient. Source: old records reviewed and nursing notes reviewed Medical History Rectal bleed Epidermal cyst Overweight (BMI 25.0-29.9) Asthma with acute exacerbation Shortness of breath COVID-19 virus infection Renal calculus, left Dysuria Annual physical exam LFT elevation Asthma GERD (gastroesophageal reflux disease) Surgical History No pertinent past surgical history Family History Family History Mother No problems noted. Father No problems noted. Social History Social History Housing: Apartment Alcohol intake: current Patient Tobacco Use Status: Never used Tobacco e-Cigarette/Vaping Use: Never Used Second Hand Smoke Exposure: No Advance Directives: No Advance Directives Information Provided: No service: No Current occupational status: employed Cognitive needs: No Hearing needs: No Vision needs: No Physical Exam ED Vital Signs: Vital Signs - 24 hr 03/12/23 04:30 03/12/23 06:00 Temperature 97.7 F 98.3 F Pulse Rate 78 76 Respiratory Rate 20 16 Blood Pressure 121/87 128/85 Pulse Oximetry 98 97 Oxygen Delivery Method Room Air Room Air BMI result Body Mass Index 29.1 Const General: cooperative, no acute distress, alert and awake Nutritional Appearance: well nourished Orientation/consciousness: patient oriented x3 Limitations: no limitations HENMT Head: Yes normal to inspection and Yes atraumatic Ears: hearing grossly normal bilaterally and external ears normal General nose exam: Normal external nose present, no nasal discharge noted and no epistaxis Face and sinus: Yes normal facial exam, No abrasion and No laceration Mouth: Normal oral and palatal mucosa present, no drooling and no muffled voice Teeth image: 1. irritated area of gum Eyes General: appearance normal, both eyes and all related structures Periorbital: periorbital findings normal Eyelids: Yes eyelids normal Conjunctivae: conjunctivae normal Pupils: Equal, round and reactive pupils present EOM: EOMs intact bilaterally Neck Neck: Yes normal visual inspection, Yes full ROM and Yes no lymphadenopathy Chest Chest palpation & inspection: normal inspection of the chest Resp Effort & Inspection: normal respiratory effort and able to speak in complete sentences GI Inspection: Yes normal to inspection Neuro General: patient oriented x3 and moves all extremities Cranial nerves: Yes Equal, round and reactive pupils present Cognition (Neuro): normal cognition Motor exam (neuro): 5/5 motor strength present throughout Sensory Exam: Normal double simultaneous stimulation for sensation Coordination: [id number] test normal Extrem General: Yes normal to inspection, Yes full ROM and Yes capillary refill normal Psych Appearance: grossly normal Mental Status: mental status grossly normal Affect: normal affect Attitude: cooperative Thought process: Normal thought process present Thought content: Normal thought content present Insight: Good insight present (Psych) Medications Administered Discontinued Medications Generic Name Dose Route Start Last Admin Trade Name Freq PRN Reason Stop Dose Admin Hydrocodone Bitart/Acetaminophen 1 tab 03/12/23 07:55 03/12/23 08:06 Hydrocodone Bit/Acetam 5/325 Tablet PO 03/12/23 07:56 1 tab ONCE ONE Administration Lidocaine HCl 15 ml 03/12/23 07:55 03/12/23 08:06 Lidocaine Hcl Viscous 2 % 15 Ml Solution MUCOUS MEM 03/12/23 07:56 15 ml ONCE ONE Administration Medical Decision Making Medical Decision Making MDM Narrative: Patient is a 22 year old assigned male at with a history of [place] and asthma presenting to the emergency department today with tooth #23 pain. Patient's physical exam showed a small ulcerated area to the gum under tooth #23 but was otherwise unremarkable. No fluctuance or induration appreciated. I explained my physical exam findings to the patient. I answered all questions asked by the patient. I stressed the importance of the patient taking his medication as prescribed. I stressed the importance of the patient following up with his primary care provider and dentist. I stressed the importance of the patient returning to the emergency department immediately if his symptoms were to worsen or if he were to develop any dizziness, shortness of breath, difficulty breathing, chest pain, blurry vision, loss of vision, nausea, vomiting, abdominal pain, fever, chills, back pain, or any other complaints. Patient verbalized agreement and understanding with this treatment plan and discharge. Differential Diagnosis Differential Diagnoses: The differential diagnosis associated with the presentation includes Dental pain Ulceration of gum Prescription Management I considered prescription management with: Antibiotic (patient given prophylactic antibiotics) Discharge Plan Discharge Clinical Impression: Pain, dental Patient Disposition: Home, Self-Care Instructions: Toothache (ED) Additional Instructions: Follow up with your primary care provider and a dentist. Return to the emergency department immediately if your symptoms worsen or if you develop any dizziness, shortness of breath, difficulty breathing, chest pain, blurry vision, loss of vision, nausea, vomiting, abdominal pain, fever, chills, back pain, or any other complaints. Call or visit any of the clinics below to establish with a dentist: [facility] [address] [place] [address] [facility] [address] [facility], [address] Matthew Womack [address] [place] [id number] [facility] [address] [place] [id number] [facility] [address] [place] [address] [place] [address] [place] [address] Prescriptions: New penicillin V potassium 500 mg tablet 500 mg PO BID 10 Days Qty: 20 0RF naproxen 500 mg tablet 500 mg PO BID 7 Days Qty: 14 0RF chlorhexidine gluconate [Peridex] 0.12 % mouthwash 15 ml buccal BID Qty: 118 0RF lidocaine HCl [Lidocaine Viscous] 2 % solution 1 appl mucous membrane BID Qty: 100 0RF Rx Instructions: Apply to affected area No Action albuterol sulfate [Ventolin HFA] 90 mcg/actuation HFA aerosol inhaler 2 puff inhalation Q6H PRN (Reason: shortness of breath or wheezing) Qty: 8.5 0RF Referrals: [facility] Family Medicine [Provider Group] (Call to establish and follow up with a primary care provider. If you already have a primary care provider, please follow up with them.) [facility] Primary Care, [facility]itor [Provider Group] (Call to establish and follow up with a primary care provider. If you already have a primary care provider, please follow up with them.) [facility] Primary Care,Lilli [Provider Group] (Call to establish and follow up with a primary care provider. If you already have a primary care provider, please follow up with them.) Print Language: Somali
[2023-03-12] MEDS: Lidocaine HCl Viscous 2 % 15 ML SOLUTION MUCOUS MEM (08:06)
[2023-03-12] MEDS: HYDROcodone Bit/Acetam 5/325 TABLET 1 TAB PO (08:06)
== END 2023-03-12 08:45 | disposition home or self-care (01) ==
PROVIDERS: Emergency Provider Emergency Medicine; PCP Internal Medicine
DX: K08.89 Other specified disorders of teeth and supporting structures (principal); Z79.899 Other long term (current) drug therapy
CPT/HCPCS: 99283

== ENCOUNTER 2023-12-17 09:53 | Outpatient (AMB) | payer OTHER, SELFPAY ==
--- NOTE | 2023-12-17 09:56 | MHC.PC.OV ---
Vital Signs 12/17/23 09:57 Height 5 ft 5 in Weight 188 lb BMI 31.3 BP 110/64 Blood Pressure Location Lt brachial Position Sitting Pulse 73 Pulse Source Pulse Oximeter Pulse Oximetry (%) 99 Oxygen Delivery Method Room Air Intake Visit Reasons: Groin Discomfort Mate Chief: Present Allergies No Known Allergies Allergy (Verified 12/17/23 09:57) Tobacco use date assessed: 12/17/23 Dental Screening Dental Screen Date: 12/17/23 Did you have a dental visit in the last 12 months?: Yes Did you have a dental problem in the last 6 months where you did not have access to dental care?: No Was dental information given to patient?: Patient has dentist HPI Groin Discomfort HPI Details 23-year-old obese male with a history of depression [place] GERD asthma coming in for groin pain. Review of the notes was seen by orthopedics in February 2023 for right foot pain diagnosis of right midfoot sprain versus plantar fascial rupture this was 4 months out of the last injury patient was advised to get an MRI. R arm cystic mass and noted in the last 2 months increased. Discussed about the right foot patient has no complaints right now. Otherwise discussed about the lab works and the need to get this repeated as the patient complains of groin rash declined examination and denied any mass in the groin. Presently no rash as patient states but would like treatment for fungal infection. [facility] Medical History Rectal bleed Epidermal cyst Overweight (BMI 25.0-29.9) Asthma with acute exacerbation Shortness of breath COVID-19 virus infection Renal calculus, left Dysuria Annual physical exam LFT elevation Asthma GERD (gastroesophageal reflux disease) Surgical History No pertinent past surgical history Family History Mother No problems noted. Father No problems noted. Social History Housing: Apartment Alcohol intake: current Patient Tobacco Use Status: Never used Tobacco e-Cigarette/Vaping Use: Never Used Second Hand Smoke Exposure: No service: No Current occupational status: employed Cognitive needs: No Hearing needs: No Vision needs: No Questionnaire PHQ-9 Over the last 2 weeks, how often have you been bothered by any of the following problems? 1. Little interest or pleasure in doing things: not at all 2. Feeling down, depressed, or hopeless: not at all 3. Trouble falling or staying asleep, or sleeping too much: not at all 4. Feeling tired or having little energy: not at all 5. Poor appetite or overeating: not at all 6. Feeling bad about yourself - or that you are a failure or have let yourself or your family down: not at all 7. Trouble concentrating on things, such as reading the newspaper or watching television: not at all 8. Moving or speaking so slowly that other people could have noticed. Or the opposite - being so fidgety or restless that you have been moving around a lot more than usual: not at all 9. Thoughts that you would be better off or of hurting yourself in some way: not at all Total score: 0 Depression Screening Interpretation: Negative Depression Screening Done: Yes Source: Developed by Drs. Isaac Stack, Meena Lau, Riaz Ceja and colleagues, with an educational john from [employer]. Thrive Questionnaire Date Thrive assessed: 12/17/23 I am a: Patient What is your living situation today?: I have a steady place to live Within the past 12 months, did the food you bought not last and you didn't have the money to get more?: Never true Within the past 12 months, did you worry whether your food would run out before you got money to buy more?: Never true Do you have trouble paying for medicines?: No Do you have trouble getting transportation to medical appointments?: No Do you have trouble paying your heating and electricity bill?: No Do you have trouble taking care of your child, family member or friend?: No Do you have trouble with day-to-day activities such as bathing, preparing meals, shopping, managing finances, etc.?: No Are you currently unemployed and looking for a job?: No Are you interested in more education?: No Please select the resources that you would like help with: None THRIVE Score: 0 AUDIT C Alcohol Use Questionnaire (AUDIT-C) 1. How often do you have a drink containing alcohol?: Never 3. How often do you have six or more drinks on one occasion?: Never Total Score: 0 VINEET-7 AMB Questionnaire VINEET-7 Date VINEET - 7 assessed: 12/17/23 Feeling nervous, anxious, or on edge: 0 = Not at all Not being able to stop or control worryin = Not at all Worrying too much about different things: 0 = Not at all Trouble relaxin = Not at all Being so restless that it is hard to sit still: 0 = Not at all Becoming easily annoyed or irritable: 0 = Not at all Feeling afraid as if something awful might happen: 0 = Not at all Total VINEET-7 score (0-4 normal; 5-9 mild; 10-14 moderate; 15-21 severe): 0 Source: Developed by Drs. Isaac Stack, Meena Lau, Riaz Ceja and colleagues, with an educational john from [employer]. Physical exam (Primary Care) Vital Signs: Last Vital Signs Pulse 73 12/17/23 09:57 BP 110/64 12/17/23 09:57 Pulse Ox 99 12/17/23 09:57 Oxygen Delivery Method Room Air 12/17/23 09:57 BMI result Body Mass Index 31.3 Tobacco/Smoking Status: Tobacco use Status Tobacco use date assessed 12/17/23 12/17/23 09:59 Patient Tobacco Use Status Never used Tobacco 12/17/23 09:59 e-Cigarette/Vaping Use Never Used 12/17/23 09:59 PHQ-9: PHQ-9 Score PHQ-9: Total score 0 12/17/23 09:59 Depression Screening Interpretation: Negative Thrive Assessment: Date of Thrive Assessment Date Thrive assessed 12/17/23 12/17/23 09:59 Const General: alert; No acute distress Eyes Conjunctivae: conjunctivae normal Resp Auscultation: clear to auscultation bilaterally Cardio Rate: regular rate Rhythm: regular rhythm GI Inspection: Yes normal to inspection Extrem General: Yes normal to inspection and No edema Shoulder/upper arm images: 1. 4 cm mass noted with papule on the middle, no redness Assessment and Plan Assessment & Plan (1) Right foot pain: Code(s): M79.671 - Pain in right foot Plan: Review of the notes has seen Orthopedics and has advised MRI of the foot. (2) Obesity (BMI 30.0-34.9): Code(s): E66.9 - Obesity, unspecified Plan: Diet and exercise (3) Depression: Comment: Psych Wellness Nikole gamboa Code(s): F32.A - Depression, unspecified Plan: doing good and not needing any counselling (4) BONILLA (nonalcoholic steatohepatitis): Comment: BASELINE LABS; 08/24/20 WBC 13.3 H Hgb 16.0 Hct 47.1 Plt Count 272 Neut % (Auto) 80.3 H Lymph % (Auto) 9.9 L Abs Immat Gran (auto) 0.05 H Absolute Neuts (auto) 10.7 H Estimated GFR > 60 Ferritin 111 Total Bilirubin 0.4 Direct Bilirubin 0.2 GGT 38 AST 22 ALT 27 Alkaline Phosphatase 80 Lipase 9 Ceruloplasmin 29 Alpha Fetoprotein 4.5 LUTHER Screen POSITIVE A LUTHER Titer 1:80 H Anti-Mitochondrial Ab NEGATIVE Anti-Smooth Muscle Ab <20 Hepatitis A IgM Ab Nonreactive Hep Bs Antigen Negative Hep Bs Antibody NONREACTIVE Hep B Core Total Ab Nonreactive Hepatitis C Ab (EIA) Nonreactive HIV 1&2 Ab/P24 Ag 4thGn Nonreactive ULTRASOUND OF THE ABDOMEN WITH ELASTOGRAPHY 07/30/2021 (F3) CURRENT LABS . ULTRASOUND OF THE ABDOMEN WITH ELASTOGRAPHY 07/30/2021 (F3) US/US abdomen comp w elastography IMPRESSION: 1. Impression: Prominent or echogenic appearing intrahepatic bile ducts similar to August 2020 exam. The liver is otherwise normal appearing. Small right renal cyst. Small left renal stone. ? 2. Liver elastography:? Adequate liver sampling.? Suggestive of compensated advanced chronic liver disease but need further test for confirmation. CT ABD AND PELVIS 08/25/20 ? IMPRESSION: 1. No appreciable biliary ductal dilatation. No acute hepatobiliary abnormality by CT. 2. Subtle haziness around the gastric antrum is likely due to motion artifact. Inflammation from peptic ulcer disease is also on the differential, particularly given the mild wall thickening in this region, though specificity of gastric findings on CT is relatively low. Consider gastroenterology consultation if this correlates with the potential site of patient's symptoms.? Code(s): K75.81 - Nonalcoholic steatohepatitis (BONILLA) Plan: Patient is advised to have a low-fat diet and exercise (5) Sebaceous cyst: Comment: R arm Code(s): L72.3 - Sebaceous cyst Plan: referral to the surgeon (6) Tinea cruris: Code(s): B35.6 - Tinea cruris Plan: antifungal cream sent in Orders: Orders Comprehensive Met. Panel Today K75.81 - Nonalcoholic steatohepatitis ([place]A) Lipid Panel Today E78.00 - Pure hypercholesterolemia, unspecified, K75.81 - Nonalcoholic steatohepatitis ([place]A) Hemoglobin A1c Today K75.81 - Nonalcoholic steatohepatitis ([place]A) Complete Blood Count Auto Diff Today K75.81 - Nonalcoholic steatohepatitis ([place]A) Free T4 (Free Thyroxine) Today K75.81 - Nonalcoholic steatohepatitis ([place]A) Thyroid Stimulating Hormone Today K75.81 - Nonalcoholic steatohepatitis ([place]A) Vitamin B12 and Folate Today K75.81 - Nonalcoholic steatohepatitis (BONILLA) Referrals General Surgery Referral L72.3 - Sebaceous cyst Medications: New clotrimazole 1% 1 appl topical BID 4 weeks 45 grams 0RF B35.6 - Tinea cruris miconazole nitrate 2% (Zeasorb AF) 1 appl topical BID 85 grams 2RF B35.6 - Tinea cruris Coding Level of Care Code Est Pt Level 4 (65474) Diagnoses Right foot pain M79.671 Obesity (BMI 30.0-34.9) E66.9 Depression F32.A BONILLA (nonalcoholic steatohepatitis) K75.81 Sebaceous cyst L72.3 Tinea cruris B35.6 Additional Codes PHQ-9 - 69991 - PHQ-9 Billing: ([id number])
[2023-12-17 09:57] VITALS: BP 110/64; PULSE 73; O2SAT 99; BMI 31.3
== END 2023-12-17 10:40 | disposition home or self-care (01) ==
PROVIDERS: PCP Internal Medicine; Visit Provider Internal Medicine
DX: R10.30 Lower abdominal pain, unspecified (principal); M79.671 Pain in right foot; F33.9 Major depressive disorder, recurrent, unspecified; K75.81 Nonalcoholic steatohepatitis (NASH); L72.3 Sebaceous cyst; B35.6 Tinea cruris
CPT/HCPCS: 99214

== ENCOUNTER 2023-12-24 07:56 | Outpatient (AMB) | payer OTHER, SELFPAY ==
--- NOTE | 2023-12-24 08:00 | MHC.OFFVIS ---
Vital Signs 12/24/23 08:02 Height 5 ft 5 in Weight 186 lb BMI 30.9 BP 130/74 Blood Pressure Location Rt brachial Position Sitting Pulse 75 Intake Visit Reasons: Cyst~ Rt upper arm Intake Note: Patient referred by pcp Dr. Andrews for cyst on rt upper arm. Present for 10yrs. Patient c/o: changing in size, enlarging, tender to touch. Denies oozing. Coating Mixer Tender Required: No Accompanied by: Self / Same As Patient Allergies No Known Allergies Allergy (Verified 12/24/23 08:03) HPI Comments Details: Patient presents with a significant other. He has had a longstanding history of a right triceps area sebaceous cyst. He has had this since its use. It has markedly increased in size and become more symptomatic. He would like to have removed. He has no such lesions elsewhere.. Chart was reviewed and patient evaluated [facility] Medical History Rectal bleed Epidermal cyst Overweight (BMI 25.0-29.9) Asthma with acute exacerbation Shortness of breath COVID-19 virus infection Renal calculus, left Dysuria Annual physical exam LFT elevation Asthma GERD (gastroesophageal reflux disease) Surgical History No pertinent past surgical history Family History Mother No problems noted. Father No problems noted. Social History Housing: Apartment Alcohol intake: current Patient Tobacco Use Status: Never used Tobacco e-Cigarette/Vaping Use: Never Used Second Hand Smoke Exposure: No service: No Current occupational status: employed Cognitive needs: No Hearing needs: No Vision needs: No Physical Exam Vital Signs: Last Vital Signs Pulse 75 12/24/23 08:02 BP 130/74 12/24/23 08:02 BMI result Body Mass Index 30.9 Chest Other: Chest breath sounds bilaterally, HS 1 in 2 GI Other: At abdomen soft, benign Extrem Other: Right mid triceps area has a very large sebaceous cyst measuring approximately 5 x 3 cm. Assessment & Plan Assessment & Plan (1) Sebaceous cyst: Comment: R arm Code(s): L72.3 - Sebaceous cyst Category: Surgical Plan Is a sized lesion, recommended this be excised and an ambulatory surgical setting. Risks, benefits, alternatives of the procedure reviewed with the patient and included but not limited to bleeding, infection, recurrence, numbness, pain, scarring, seroma formation, wound dehiscence and the patient wishes to proceed. All questions answered. Arrangements will be made for this Coding Level of Care Code New Pt Level 5 (68733) Diagnoses Sebaceous cyst L72.3
[2023-12-24 08:02] VITALS: BP 130/74; PULSE 75; BMI 30.9
== END 2023-12-24 08:13 | disposition home or self-care (01) ==
PROVIDERS: PCP Internal Medicine; Referring Provider Internal Medicine; Visit Provider Surgery
DX: L72.3 Sebaceous cyst (principal)
CPT/HCPCS: 99204

== ENCOUNTER → 2023-12-24 07:56 | Outpatient (BNVA) | payer OTHER, SELFPAY | PROVIDERS: PCP Internal Medicine; Referring Provider Internal Medicine; Visit Provider Surgery | DX: L72.3 Sebaceous cyst (principal) | CPT/HCPCS: 99202 ==

== ENCOUNTER 2023-12-24 08:22 | Outpatient (REF) | payer OTHER, SELFPAY ==
[2023-12-24 08:38] LABS: MANUAL DIFF FLAG NO
[2023-12-24 08:58] LABS: Basophils Percent Auto 0.6 % (0-2); Eosinophils Absolute Auto 0.1 X10*3/uL (0.0-0.4); Eosinophils Percent Auto 2.2 % (0-4); Hematocrit 45.6 % (42.0-52.0); Hemoglobin 15.6 g/dl (14.0-18.0); Imm Gran Abs Auto 0.03 X10*3/uL (0.00-0.03); Imm Gran Pct Auto 0.5 % (0.0-0.4); Lymphocytes Percent Auto 30.5 % (20-40); Mean Corpuscular HGB Conc 34.2 g/dl (31.0-36.0); Mean Corpuscular Hemoglobin 29.3 pg (27.0-33.0); Mean Corpuscular Volume 85.7 fL (80.0-98.0); Mean Platelet Volume 9.8 fL (9.4-12.4); Monocytes Absolute Auto 0.8 X10*3/uL (0.1-1.2); Monocytes Percent Auto 11.9 % (2-11); Neutrophils Absolute Auto 3.5 x10*3/uL (2.0-8.3); Neutrophils Percent Auto 54.3 % (45-73); Platelet Count 304 X10*3/uL (160-400); Red Blood Count 5.32 X10*6/uL (4.60-5.80); White Blood Count 6.4 X10*3/uL (4.8-10.8)
[2023-12-24 09:28] LABS: Alanine Aminotransferase 45 U/L (0-40); Albumin Level 4.4 g/dL (3.5-5.0); Alkaline Phosphatase 93 U/L (39-117); Anion Gap 12 (12-20); Aspartate Amino Transferase 39 U/L (5-37); Bilirubin Total 0.5 mg/dL (0.0-1.0); Blood Urea Nitrogen 10 mg/dL (9-16); Calcium 9.1 mg/dL (8.4-10.2); Carbon Dioxide 25 mmol/L (22-29); Chloride 107 mmol/L (96-108); Cholesterol 159 mg/dL (<200); Estimated Glomerular Filt Rate > 60; Glucose Random 105 mg/dL (60-115); HDL Cholesterol 44 mg/dL (>40); LDL Cholesterol Calculated 108 mg/dL (<100); Potassium 3.8 mmol/L (3.3-5.1); Sodium 140 mmol/L (135-145); Total Protein 6.7 g/dL (6.5-8.0); Triglycerides 39 mg/dL (<150)
[2023-12-24 09:46] LABS: Free T4 (Free Thyroxine) 0.93 ng/dL (0.71-1.85); Thyroid Stimulating Hormone 0.98 uIU/mL (0.32-4.0)
[2023-12-24 12:35] LABS: Estimated Average Glucose 105 mg/dL; Hemoglobin A1c % 5.3 % (<6.0)
[2023-12-24 13:36] LABS: Vitamin B12 365 pg/mL (200-900)
== END 2023-12-24 08:23 | disposition home or self-care (01) ==
LOC: HO.LAB 08:22
PROVIDERS: PCP Internal Medicine; Visit Provider Internal Medicine
DX: K75.81 Nonalcoholic steatohepatitis (NASH) (principal); E78.00 Pure hypercholesterolemia, unspecified
CPT/HCPCS: 36415; 80053; 80061; 82607; 82746; 83036; 84439; 84443; 85025

== ENCOUNTER 2024-01-09 06:03 | Day surgery (SDC) | payer OTHER, SELFPAY ==
[2024-01-07 13:04] VITALS: BMI 30.9
--- NOTE | 2024-01-08 14:06 | MHC.SHP ---
Pre-Procedural Eval Section A - 24 Hr Update-Section A only Date of Service: 01/09/24 The patient is an INPATIENT: No Changes since office visit: No Cold of Flu in the past 2 weeks, No New Medical Problems, No Changes in Medication and No Patient answered all questions The patient has been examined within 24 hours of the surgical procedure. The History & Physical has been completed within 30 days and I have reviewed it.: Yes Section B - Complete if H&P > 30 days Chief Complaint: Sebaceous cyst Allergies: Allergies Allergy/AdvReac Type Severity Reaction Status Date / Time No Known Allergies Allergy Verified 12/24/23 08:03 Review of Systems Sugical H&P ROS: Negative: Constitution, Cardiovascular, Respiratory, Neurological, Psychiatric, Hem-Onc, Allergic/Immunologic, Gastrointestinal, Genitourinary, Musculoskeletal, Integumentary, Endocrine and Eyes/Ears/Nose/Throat Exam Surgical H&P Exam: Normal: HEENT, Normal: Heart, Normal: Lungs, Normal: Extremities, Normal: Abdomen, Normal: Skin and Normal: Neurological Plan I have reviewed the history and physical and performed a pertinent physical examination on my patient. No changes have occurred unless specified. Time Spent With Patient Time: Total time managing care of this patient today ____ minutes.
[2024-01-09 06:20] VITALS: BMI 30.3
[2024-01-09 06:34] VITALS: BP 114/70; PULSE 75; RESP 16; TEMP 37.5; O2SAT 98
[2024-01-09] MEDS: Lactated Ringers 1,000 ML 100 ML IVCONT (06:41)
--- NOTE | 2024-01-09 07:25 | HO.ANESPROP2 ---
Documented by User: Millie Watson NP 01/07/24 13:58 HPI - Anesthesia Eval Consult details Narrative: 23yo M for Right Wide Local Excision Tricep Epidermal Inclusion Cyst PMFSH Active Problems Active Problems: All Active Problems Tinea cruris (Acute) Sebaceous cyst (Acute) Obesity (BMI 30.0-34.9) (Acute) Right foot pain (Acute) Renal cyst, right (Acute) Depression (Acute) [place] (nonalcoholic steatohepatitis) (Acute) GERD (gastroesophageal reflux disease) (Acute) Asthma (Acute) Past Medical History Medical History Rectal bleed Epidermal cyst Overweight (BMI 25.0-29.9) Asthma with acute exacerbation Shortness of breath COVID-19 virus infection Renal calculus, left Dysuria Annual physical exam LFT elevation Asthma GERD (gastroesophageal reflux disease) Family History Family History Mother No problems noted. Father No problems noted. Surgical History Surgical History No pertinent past surgical history Social History Social History Housing: Apartment Alcohol intake: current Patient Tobacco Use Status: Never used Tobacco e-Cigarette/Vaping Use: Never Used Second Hand Smoke Exposure: No Use of substances other than those prescribed or required for medical reasons: No Are you DNR?: No Advance Directives: No Advance Directives Information Provided: Yes Advance Directives on File: No service: No Current occupational status: employed Cognitive needs: No Hearing needs: No Vision needs: No Meds Allergies Allergy/AdvReac Type Severity Reaction Status Date / Time No Known Allergies Allergy Verified 12/24/23 08:03 Exam Height,Weight and Vital Signs: Height 5 ft 5 in Weight 84.368 kg Pertinent Lab Results Pertinent Lab Results: Laboratory Tests 12/24/23 08:37 WBC 6.4 Hgb 15.6 Hct 45.6 Plt Count 304 Sodium 140 Potassium 3.8 Chloride 107 Carbon Dioxide 25 BUN 10 Creatinine 0.79 Assessment and Plan Assessment Anesthesia Assessment: Chart Reviewed Documented by User: Yaritza Luna DO 01/09/24 07:28 [facility] Past Medical History Medical History Rectal bleed Epidermal cyst Overweight (BMI 25.0-29.9) Asthma with acute exacerbation Shortness of breath COVID-19 virus infection Renal calculus, left Dysuria Annual physical exam LFT elevation Asthma GERD (gastroesophageal reflux disease) Family History Family History Mother No problems noted. Father No problems noted. Family history of problems with anesthesia: No Surgical History Surgical History No pertinent past surgical history History of Problems with Anesthesia: Unobtainable (patient never had surgery) Social History Social History Housing: Apartment Alcohol intake: current Patient Tobacco Use Status: Never used Tobacco e-Cigarette/Vaping Use: Never Used Second Hand Smoke Exposure: No Use of substances other than those prescribed or required for medical reasons: No Are you DNR?: No Advance Directives: No Advance Directives Information Provided: Yes Advance Directives on File: No service: No Current occupational status: employed Cognitive needs: No Hearing needs: No Vision needs: No Meds Allergies Allergy/AdvReac Type Severity Reaction Status Date / Time No Known Allergies Allergy Verified 12/24/23 08:03 Exam Exam Date and Time: January 09, 2024 0715 Height,Weight and Vital Signs: Height 5 ft 5 in Weight 84.368 kg Vital Signs Temperature 99.5 F 01/09/24 06:34 Pulse Rate 75 01/09/24 06:34 Respiratory Rate 16 01/09/24 06:34 Blood Pressure 114/70 01/09/24 06:34 Pulse Oximetry 98 01/09/24 06:34 Oxygen Delivery Method Room Air 01/09/24 06:34 Temperature 99.5 F 01/09/24 06:34 Pulse Rate 75 08/02/24 06:34 Respiratory Rate 16 01/09/24 06:34 Blood Pressure 114/70 01/09/24 06:34 Pulse Oximetry 98 01/09/24 06:34 Oxygen Delivery Method Room Air 01/09/24 06:34 Airway Mallampati Class: I TM Dist: >3cm Neck ROM: Full Loose/Missing/Broken Teeth: No (patient denies any loose or broken teeth) Heart: S1S2 Lungs: CTAB Assessment and Plan Assessment Anesthesia Assessment: Anesthesia Plan Discussed and Chart Reviewed Final Anesthetic Review Family History of Problems with Anesthesia: No History of Problems with Anesthesia: Unobtainable (patient never had surgery) NPO: Yes ASA Class: II Final Preanesthetic Review: No Changes in Pt Med Stat, Meds/Allgs Chart Reviewed, Consent Obtained/Reviewed and Anes Risks/Benef Reviewed Patient Risk: Low Procedure Risk: Low Anesthetic Plan Anesthetic Plan: MAC: and Agree w/ Assess. and Plan Disposition: Standard PACU
[2024-01-09 08:26] VITALS: BP 102/54; PULSE 88; RESP 14; TEMP 36.2; O2SAT 95
[2024-01-09 08:41] VITALS: BP 110/65; PULSE 73; RESP 16; O2SAT 98
[2024-01-09 08:56] VITALS: BP 112/64; PULSE 76; TEMP 36.4; O2SAT 99
--- NOTE | 2024-01-09 09:38 | W.PM.OPN ---
Operative Note Operative Note Date of Service: 01/09/24 Narrative: Preoperative diagnosis: [] Right lateral shoulder large symptomatic sebaceous cyst Postop diagnosis: [] The same Procedure [] wide local excision large right shoulder sebaceous cyst Surgeon: [] Audi Sheet Metal Work Furnace Installer: [] Emily Type of Anesthesia: MAC Indication for surgery: [] Final specimen measured approximately 6 x 4 cm consistent with a large sebaceous cyst Findings: [] Patient brought to the operating room, placed on operative table supine position, after adequate level of MAC anesthesia was induced, patient was placed in left lateral decubitus position. Right shoulder area was prepped and draped in usual sterile fashion. Using a longitudinal by elliptical incision encompassing the mass in question, this carried down through skin, subcutaneous tissue, where anterior and posterior skin flaps were developed and uneventful dissection out of a very large sebaceous cyst was uneventfully performed. Specimen sent to pathology. Dissection was carried down to the deltoid muscle. Wound was irrigated, secured hemostasis, and closed using interrupted inverted dermal 3-0 Vicryl sutures followed by Steri-Strips and sterile dressings. Wound was infiltrated at the beginning at the end with 0.5% Marcaine/1% lidocaine. Sponge, needle, and instrument counts reported correct. Patient tolerated the procedure well and emerged from anesthesia stable condition. EBL minimal
== END 2024-01-09 09:30 | disposition home or self-care (01) ==
PROVIDERS: PCP Internal Medicine; Visit Provider Surgery
PROC: (CPT 11406; principal; 2024-01-09 07:30)
DX: L72.3 Sebaceous cyst (principal); J45.909 Unspecified asthma, uncomplicated; R79.89 Other specified abnormal findings of blood chemistry; K21.9 Gastro-esophageal reflux disease without esophagitis; E66.3 Overweight; Z68.30 Body mass index [BMI] 30.0-30.9, adult
CPT/HCPCS: 11406; 88304; J0690; J1100; J1596; J2250; J2405; J2704; J2795; J3010

== ENCOUNTER → 2024-01-09 06:03 | Outpatient (BNV) | payer OTHER, SELFPAY | PROVIDERS: PCP Internal Medicine; Visit Provider Surgery | DX: L72.3 Sebaceous cyst (principal) | CPT/HCPCS: 23071 ==

== ENCOUNTER 2024-01-19 11:00 | Outpatient (AMB) | payer OTHER, SELFPAY ==
--- NOTE | 2024-01-19 11:02 | A.OFFVIS_ITS ---
Vital Signs 01/19/24 11:04 Height 5 ft 5 in Weight 180 lb 12.465 oz BMI 30.1 Pulse 72 Intake Visit Reasons: S/P WLE Rt. tricep Lg. EIC Intake Note: Patient is seen in office for post op assessment post excision right lateral shoulder large symptomatic sebaceous cyst. Pt c/o: denies any concerns Poker Machine Attendant Required: No Accompanied by: Self / Same As Patient Allergies No Known Allergies Allergy (Verified 01/19/24 11:05) HPI Comments Details: Patient presents for follow-up. He has no wound issues or complaints. Pathology is benign [facility] Medical History Rectal bleed Epidermal cyst Overweight (BMI 25.0-29.9) Asthma with acute exacerbation Shortness of breath COVID-19 virus infection Renal calculus, left Dysuria Annual physical exam LFT elevation Asthma GERD (gastroesophageal reflux disease) Surgical History No pertinent past surgical history Family History Mother No problems noted. Father No problems noted. Social History Housing: Apartment Alcohol intake: current Patient Tobacco Use Status: Never used Tobacco e-Cigarette/Vaping Use: Never Used Second Hand Smoke Exposure: No service: No Current occupational status: employed Cognitive needs: No Hearing needs: No Vision needs: No Physical Exam Vital Signs: Last Vital Signs Pulse 72 01/19/24 11:04 BMI result Body Mass Index 30.1 Extrem Other: Right triceps wound well healed. Assessment & Plan Assessment & Plan (1) Postop check: Code(s): Z09 - Encounter for follow-up examination after completed treatment for conditions other than malignant neoplasm Category: Medical Plan Patient has been given local instructions, note for 2 weeks light duty work, and we will otherwise follow-up p.r.n.. All questions answered. Coding Level of Care Code Global (19869) Diagnoses Postop check Z09
[2024-01-19 11:04] VITALS: PULSE 72; BMI 30.1
== END 2024-01-19 11:06 | disposition home or self-care (01) ==
PROVIDERS: PCP Internal Medicine; Visit Provider Surgery
DX: Z09 Encounter for follow-up examination after completed treatment for conditions other than malignant neoplasm (principal)
CPT/HCPCS: 99024

== ENCOUNTER → 2024-01-19 11:00 | Outpatient (BNVA) | payer OTHER, SELFPAY | PROVIDERS: PCP Internal Medicine; Visit Provider Surgery | DX: Z09 Encounter for follow-up examination after completed treatment for conditions other than malignant neoplasm (principal) | CPT/HCPCS: 99212 ==

== ENCOUNTER 2024-01-27 09:08 | Outpatient (AMB) | payer OTHER, SELFPAY ==
[2024-01-27 09:10] VITALS: BP 110/76; PULSE 67; O2SAT 98; BMI 30.9
--- NOTE | 2024-01-27 09:10 | A.OFFPC_ITS ---
Vital Signs 3 01/27/24 09:10 Height 5 ft 5 in Weight 186 lb BMI 30.9 BP 110/76 Blood Pressure Location Lt brachial Position Sitting Pulse 67 Pulse Source Pulse Oximeter Pulse Oximetry (%) 98 Oxygen Delivery Method Room Air Intake Visit Reasons: Annual Exam [employer] Required: No Accompanied by: Self / Same As Patient Allergies No Known Allergies Allergy (Verified 01/27/24 09:11) Medication List - Last Reconciled 01/27/24 by Brandee Andrews MD albuterol sulfate 90 mcg/actuation (Ventolin HFA) 2 puffs inhalation Q6H PRN Tobacco use date assessed: 01/27/24 Dental Screening Dental Screen Date: 01/27/24 Did you have a dental visit in the last 12 months?: Yes Did you have a dental problem in the last 6 months where you did not have access to dental care?: No Was dental information given to patient?: Patient has dentist HPI Annual Exam 2 HPI0 Details 23-year-old obese male with depression f atty liver coming in for physical exam last seen in 03/28/2024. Review of the notes has seen the surgeon for postop excision right lateral shoulder large symptomatic sebaceous cyst in 01/19/2024 and was advised to weeks of light duty work. [facility] Medical History (Updated 01/27/24 @ 09:49 by Brandee Andrews MD) Annual physical exam Rectal bleed Epidermal cyst Overweight (BMI 25.0-29.9) Asthma with acute exacerbation Shortness of breath COVID-19 virus infection Renal calculus, left Dysuria LFT elevation Asthma GERD (gastroesophageal reflux disease) Surgical History (Updated 01/27/24 @ 09:33 by Brandee Andrews MD) No pertinent past surgical history Family History Mother No problems noted. Father No problems noted. Social History (Updated 01/27/24 @ 09:37 by Brandee Andrews MD) Housing: Apartment Alcohol intake: current Comment: once a year Patient Tobacco Use Status: Never used Tobacco e-Cigarette/Vaping Use: Never Used Second Hand Smoke Exposure: No service: No Current occupational status: employed Cognitive needs: No Hearing needs: No Vision needs: No Questionnaire PHQ-9 Over the last 2 weeks, how often have you been bothered by any of the following problems? 1. Little interest or pleasure in doing things: not at all 2. Feeling down, depressed, or hopeless: not at all 3. Trouble falling or staying asleep, or sleeping too much: not at all 4. Feeling tired or having little energy: not at all 5. Poor appetite or overeating: not at all 6. Feeling bad about yourself - or that you are a failure or have let yourself or your family down: not at all 7. Trouble concentrating on things, such as reading the newspaper or watching television: not at all 8. Moving or speaking so slowly that other people could have noticed. Or the opposite - being so fidgety or restless that you have been moving around a lot more than usual: not at all 9. Thoughts that you would be better off or of hurting yourself in some way: not at all Total score: 0 Depression Screening Interpretation: Negative Depression Screening Done: Yes Source: Developed by Drs. Isaac Stack, Meena Lau, Riaz Ceja and colleagues, with an educational john from [employer]. Thrive Questionnaire Date Thrive assessed: 01/27/24 I am a: Patient What is your living situation today?: I have a steady place to live Within the past 12 months, did the food you bought not last and you didn't have the money to get more?: Never true Within the past 12 months, did you worry whether your food would run out before you got money to buy more?: Never true Do you have trouble paying for medicines?: No Do you have trouble getting transportation to medical appointments?: No Do you have trouble paying your heating and electricity bill?: No Do you have trouble taking care of your child, family member or friend?: No Do you have trouble with day-to-day activities such as bathing, preparing meals, shopping, managing finances, etc.?: No Are you currently unemployed and looking for a job?: No Are you interested in more education?: No Please select the resources that you would like help with: None Currently or been in a relationship where the following occur: No concerns reported THRIVE Score: 0 AUDIT C Alcohol Use Questionnaire (AUDIT-C) 1. How often do you have a drink containing alcohol?: Never 3. How often do you have six or more drinks on one occasion?: Never Total Score: 0 VINEET-7 AMB Questionnaire VINEET-7 Date VINEET - 7 assessed: 01/27/24 Feeling nervous, anxious, or on edge: 0 = Not at all Not being able to stop or control worryin = Not at all Worrying too much about different things: 0 = Not at all Trouble relaxin = Not at all Being so restless that it is hard to sit still: 0 = Not at all Becoming easily annoyed or irritable: 0 = Not at all Feeling afraid as if something awful might happen: 0 = Not at all Total VINEET-7 score (0-4 normal; 5-9 mild; 10-14 moderate; 15-21 severe): 0 Source: Developed by Drs. Isaac Stack, Meena Lau, Riaz Ceja and colleagues, with an educational john from [employer]. Review of Systems Const Denies poor appetite and Denies weakness Eyes Denies no additional complaints ENT Reports Normal hearing present, Denies dizziness, Denies nasal congestion, Denies tinnitus and Denies sore throat Card Denies chest pain, Denies syncope, Denies rapid heart rate and Denies dyspnea Resp Denies cough and Denies dyspnea GI Denies change in stool character, Reports constipation, Denies diarrhea, Denies nausea and Denies vomiting Denies dysuria and Denies urinary frequency Neuro Reports Normal hearing present, Denies confusion, Denies dizziness, Denies syncope and Denies weakness Psych Denies confusion Physical exam (Primary Care) Vital Signs: Last Vital Signs Pulse 67 01/27/24 09:10 BP 110/76 01/27/24 09:10 Pulse Ox 98 01/27/24 09:10 Oxygen Delivery Method Room Air 01/27/24 09:10 BMI result Body Mass Index 30.9 Tobacco/Smoking Status: Tobacco use Status Tobacco use date assessed 01/27/24 01/27/24 09:14 Patient Tobacco Use Status Never used Tobacco 01/27/24 09:14 e-Cigarette/Vaping Use Never Used 01/27/24 09:14 PHQ-9: PHQ-9 Score PHQ-9: Total score 0 01/27/24 09:15 Depression Screening Interpretation: Negative Thrive Assessment: Date of Thrive Assessment Date Thrive assessed 01/27/24 01/27/24 09:14 Currently or been in a relationship where the following occur: No concerns reported Const General: No confusion Orientation/consciousness: No confusion HENMT Head: Yes normocephalic Ears: external ears normal and TM's normal bilaterally Face and sinus: Yes normal facial exam Mouth: moist mucous membranes Throat: Yes tonsils normal Eyes Conjunctivae: conjunctivae normal Pupils: Equal, round and reactive pupils present and Pupil accommodation reflex normal Direct Ophthalmoscopy: normal light reflex Neck Neck: No lymphadenopathy Thyroid: Thyroid normal Chest Chest palpation & inspection: normal inspection of the chest Resp Effort & Inspection: normal respiratory effort and no audible wheezes Auscultation: clear to auscultation bilaterally, no crackles, no wheezes and lung sounds not diminished Cardio Rate: regular rate Rhythm: regular rhythm Peripheral pulses: radial pulses present and dorsalis pedis present GI Palpation (GI): no masses Auscultation: normal bowel sounds and normoactive bowel sounds Rectal Exam - Male: Yes deferred Skin General skin exam: no rashes or lesions noted Rashes: no rashes Neuro General: No confusion Cranial nerves: Yes Equal, round and reactive pupils present and Yes Normal hearing present Cognition (Neuro): normal cognition Gait exam (Neuro): Normal gait present Motor exam (neuro): 5/5 motor strength present throughout Deep tendon reflexes (DTR's): Right brachioradialis reflex intensity grade: 2+, Left brachioradialis reflex intensity grade: 2+, Right patellar reflex intensity grade: 2+ and Left patellar reflex intensity grade: 2+ Extrem General: No edema Shoulder/upper arm images: 2 1. 3 cm scabbed incisional scar no redness 2. Bilateral axillary 4 x 5 cm erythematous with multiple papular rash 3. Hand/finger images: 2 1. Bilateral interdigital rash erythematous with some indurated skin 2. Assessment and Plan Assessment & Plan (1) BEACH (nonalcoholic steatohepatitis): Comment: BASELINE LABS; 08/24/20 WBC 13.3 H Hgb 16.0 Hct 47.1 Plt Count 272 Neut % (Auto) 80.3 H Lymph % (Auto) 9.9 L Abs Immat Gran (auto) 0.05 H Absolute Neuts (auto) 10.7 H Estimated GFR > 60 Ferritin 111 Total Bilirubin 0.4 Direct Bilirubin 0.2 GGT 38 AST 22 ALT 27 Alkaline Phosphatase 80 Lipase 9 Ceruloplasmin 29 Alpha Fetoprotein 4.5 LUTHER Screen POSITIVE A LUTHER Titer 1:80 H Anti-Mitochondrial Ab NEGATIVE Anti-Smooth Muscle Ab <20 Hepatitis A IgM Ab Nonreactive Hep Bs Antigen Negative Hep Bs Antibody NONREACTIVE Hep B Core Total Ab Nonreactive Hepatitis C Ab (EIA) Nonreactive HIV 1&2 Ab/P24 Ag 4thGn Nonreactive ULTRASOUND OF THE ABDOMEN WITH ELASTOGRAPHY 07/30/2021 (F3) CURRENT LABS . ULTRASOUND OF THE ABDOMEN WITH ELASTOGRAPHY 07/30/2021 (F3) US/US abdomen comp w elastography IMPRESSION: 1. Impression: Prominent or echogenic appearing intrahepatic bile ducts similar to August 2020 exam. The liver is otherwise normal appearing. Small right renal cyst. Small left renal stone. ? 2. Liver elastography:? Adequate liver sampling.? Suggestive of compensated advanced chronic liver disease but need further test for confirmation. CT ABD AND PELVIS 08/25/20 ? IMPRESSION: 1. No appreciable biliary ductal dilatation. No acute hepatobiliary abnormality by CT. 2. Subtle haziness around the gastric antrum is likely due to motion artifact. Inflammation from peptic ulcer disease is also on the differential, particularly given the mild wall thickening in this region, though specificity of gastric findings on CT is relatively low. Consider gastroenterology consultation if this correlates with the potential site of patient's symptoms.? Code(s): K75.81 - Nonalcoholic steatohepatitis (BEACH) Plan: Low-fat diet and exercise (2) Depression: Comment: Psych Wellness Nikole gamboa Code(s): F32.A - Depression, unspecified Plan: Continue with counseling and therapy. (3) GERD (gastroesophageal reflux disease): Code(s): K21.9 - Gastro-esophageal reflux disease without esophagitis Plan: Avoid the foods that causes that usually spicy foods, tomato products, juices, coffee, soda and foods that your sensitive to. After eating do not lie down, allow 3-4 hours before in lie down. And keep the head of bed above 30 degrees to avoid the acid from going up. (4) Asthma: Code(s): J45.909 - Unspecified asthma, uncomplicated Plan: Continue the albuterol inhaler as needed (5) Sebaceous cyst: Comment: R arm 01/09/2024 excision Code(s): L72.3 - Sebaceous cyst Plan: January 09 2024 excision patient has followed up with the surgeon and continuing to monitor (6) Annual physical exam: Code(s): Z00.00 - Encounter for general adult medical examination without abnormal findings Plan: Patient is advised to eat healthy, keep well hydrated, keep active and have adequate sleep. (7) Allergic contact dermatitis: Comment: interdigital hand area Code(s): L23.9 - Allergic contact dermatitis, unspecified cause Plan: Steroid cream prescription sent in and advised limited to 1 week (8) Axillary hidradenitis suppurativa: Code(s): L73.2 - Hidradenitis suppurativa Plan: Antibiotics sent and discussed that if the rash does not clear up to call and we will sent to dermatology. Patient denies deodorant causing the problem and this has been going on for 3 weeks. Medications: New 2 triamcinolone acetonide 0.5% 1 appl topical BID 30 grams 0RF L23.9 - Allergic contact dermatitis, unspecified cause doxycycline hyclate 100 mg PO BID 14 caps 0RF L73.2 - Hidradenitis suppurativa Refilled 2 albuterol sulfate 90 mcg/actuation (Ventolin HFA) 2 puffs inhalation Q6H PRN 8.5 grams 0RF shortness of breath or wheezing J45.909 - Unspecified asthma, uncomplicated Coding Level of Care Code Est Pt Prev Care 18-39y(33396) Diagnoses BEACH (nonalcoholic steatohepatitis) K75.81 Depression F32.A GERD (gastroesophageal reflux disease) K21.9 Asthma J45.909 Sebaceous cyst L72.3 Annual physical exam Z00.00 Allergic contact dermatitis L23.9 Axillary hidradenitis suppurativa L73.2 Additional Codes PHQ-9 - 07985 - PHQ-9 Billing: ([id number])
== END 2024-01-27 09:53 | disposition home or self-care (01) ==
PROVIDERS: PCP Internal Medicine; Visit Provider Internal Medicine
DX: Z00.00 Encounter for general adult medical examination without abnormal findings (principal); K75.81 Nonalcoholic steatohepatitis (NASH); F32.A Depression, unspecified; K21.9 Gastro-esophageal reflux disease without esophagitis; J45.909 Unspecified asthma, uncomplicated; L72.3 Sebaceous cyst; L23.9 Allergic contact dermatitis, unspecified cause; L73.2 Hidradenitis suppurativa
CPT/HCPCS: 99395

== ENCOUNTER 2024-04-30 10:38 | Outpatient (AMB) | payer OTHER, SELFPAY ==
[2024-04-30 10:39] VITALS: BP 100/82; PULSE 82; O2SAT 96; BMI 30.4
--- NOTE | 2024-04-30 10:39 | MHC.PC.OV ---
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 Andrews January 2024 coming in for acute problem. Patient states he has been having intermittent headaches for the last 3 weeks. The headaches would typically start in the afternoon and we will subside with ibuprofen and do not return after the medication. The headache typically involves the entire head and we will occasionally be in just the temporal region. He has not identified any triggers but does notice they do start around noon. Was recently laid off from work and has started playing video games and on his phone more frequently. He also mentions he does not drink enough water and we will also skip meals. Denies any sinus pressure, pain, ear pain, congestion or sore throat. Denies any neck pain or stiffness. [facility] Medical History (Updated 04/30/24 @ 11:03 by Rhianna Murdock PA-C) Annual physical exam Rectal bleed Epidermal cyst Overweight (BMI 25.0-29.9) Asthma with acute exacerbation Shortness of breath COVID-19 virus infection Renal calculus, left Dysuria LFT elevation Asthma GERD (gastroesophageal reflux disease) Surgical History (Updated 01/27/24 @ 09:33 by Brandee Andrews MD) No pertinent past surgical history Family History Mother No problems noted. Father No problems noted. Social History (Updated 01/27/24 @ 09:37 by Brandee Andrews MD) Housing: Apartment Alcohol intake: current Comment: once a year Patient Tobacco Use Status: Never used Tobacco e-Cigarette/Vaping Use: Never Used Second Hand Smoke Exposure: No service: No Current occupational status: employed Cognitive needs: No Hearing needs: No Vision needs: No Questionnaire Thrive Questionnaire Date Thrive assessed: 01/27/24 I am a: Patient What is your living situation today?: I have a steady place to live Within the past 12 months, did the food you bought not last and you didn't have the money to get more?: Never true Within the past 12 months, did you worry whether your food would run out before you got money to buy more?: Never true Do you have trouble paying for medicines?: No Do you have trouble getting transportation to medical appointments?: No Do you have trouble paying your heating and electricity bill?: No Do you have trouble taking care of your child, family member or friend?: No Do you have trouble with day-to-day activities such as bathing, preparing meals, shopping, managing finances, etc.?: No Are you currently unemployed and looking for a job?: No Are you interested in more education?: No Please select the resources that you would like help with: None Currently or been in a relationship where the following occur: No concerns reported THRIVE Score: 0 AUDIT C Alcohol Use Questionnaire (AUDIT-C) 1. How often do you have a drink containing alcohol?: Never 3. How often do you have six or more drinks on one occasion?: Never Total Score: 0 VINEET-7 AMB Questionnaire VINEET-7 Date VINETE - 7 assessed: 01/27/24 Source: Developed by Drs. Isaac Stack, Meena Lau, Riaz Ceja and colleagues, with an educational john from [employer]. Review of Systems Const Denies body aches, Denies chills, Denies fever(s), Reports headache(s) and Denies poor appetite Eyes Reports no additional complaints ENT Denies dizziness, Denies otalgia, Denies facial pain, Reports headache(s), Denies neck pain, Denies sinus pain and Denies sore throat Card Denies chest pain, Denies lightheadedness and Denies dyspnea Resp Denies dyspnea GI Denies nausea and Denies vomiting Reports no additional complaints Musc Reports no additional complaints, Denies abnormal gait and Denies neck pain Skin/Breast Reports system reviewed and no additional complaints, except as documented Neuro Denies abnormal gait, Denies dizziness and Reports headache(s) Psych Reports no additional complaints Physical exam (Primary Care) Vital Signs: Last Vital Signs Pulse 82 04/30/24 10:39 BP 100/82 04/30/24 10:39 Pulse Ox 96 04/30/24 10:39 Oxygen Delivery Method Room Air 04/30/24 10:39 BMI result Body Mass Index 30.4 Tobacco/Smoking Status: Tobacco use Status Tobacco use date assessed 01/27/24 04/30/24 10:40 Patient Tobacco Use Status Never used Tobacco 04/30/24 10:40 e-Cigarette/Vaping Use Never Used 04/30/24 10:40 Thrive Assessment: Date of Thrive Assessment Date Thrive assessed 01/27/24 04/30/24 10:40 Currently or been in a relationship where the following occur: No concerns reported Const General: cooperative, healthy appearing, comfortable and no acute distress Orientation/consciousness: patient oriented x3 HENMT Head: Yes normocephalic Ears: hearing grossly normal bilaterally General nose exam: Normal external nose present Eyes General: appearance normal, both eyes and all related structures Conjunctivae: conjunctivae normal Neck Neck: Yes full ROM and Yes no lymphadenopathy Resp Effort & Inspection: normal respiratory effort Auscultation: clear to auscultation bilaterally, no crackles, no rales, no rhonchi and no wheezes Cardio Rate: regular rate Rhythm: regular rhythm Skin General skin exam: no rashes or lesions noted Neuro General: patient oriented x3 Gait exam (Neuro): Normal gait present Extrem General: Yes normal to inspection, Yes full ROM and No edema Psych Affect: normal affect Attitude: cooperative Insight: Good insight present (Psych) Judgement: Good judgement present (Psych) Coding Level of Care Code Est Pt Level 3 (59718) Diagnoses Headache R51.9 Assessment & Plan Assessment & Plan (1) Headache: Code(s): R51.9 - Headache, unspecified Category: Medical Plan: Likely related to increased screen usage. Advised patient to decrease screen time and use blue light glasses when using screens or playing video games. Also advised to increase water intake and have regular meals throughout the day. If headaches become persistent advised patient to keep headache journal and reach out to the office for additional workup. Also referral placed to eye doctor for evaluation. Plan This note was constructed using voice recognition software. While every effort has been made to ensure accuracy and assembly department supervisor, still areas may have been included sometimes these areas may affect the content or meeting of the given symptoms. Total time spent caring for the patient today was 20 minutes. This includes time spent before the visit reviewing the chart, time spent during the visit, and time spent after the visit and documentation. Orders: Referrals Optometry Referral Z00.00 - Encounter for general adult medical examination without abnormal findings
== END 2024-04-30 11:27 | disposition home or self-care (01) ==
PROVIDERS: PCP Internal Medicine
DX: R51.9 Headache, unspecified (principal)

== ENCOUNTER → 2024-04-30 10:38 | Outpatient (BNVA) | payer OTHER, SELFPAY | PROVIDERS: PCP Internal Medicine | DX: R51.9 Headache, unspecified (principal) | CPT/HCPCS: 99212 ==

== ENCOUNTER 2024-07-13 05:50 | Emergency (ER) | payer OTHER, SELFPAY ==
--- NOTE | 2024-07-13 | ECG_ITS ---
Test Reason : difficulty breathing Blood Pressure : */* mmHG Vent. Rate : 116 BPM Atrial Rate : 116 BPM P-R Int : 138 ms QRS Dur : 90 ms QT Int : 320 ms P-R-T Axes : 65 -5 34 degrees QTcB Int : 444 ms Sinus tachycardia Possible Left atrial enlargement Borderline ECG When compared with ECG of 16-May-2022 00:00, Vent. rate has increased by 45 bpm Referred By: Generic ED Physician Electronically Signed By: Antonio Hugo
--- NOTE | ~2024-07-13 | XR_ITS ---
CLINICAL HISTORY: cough 2 view chest x-ray Comparison: CR/SR - XR CHEST 2V - 05/15/22 22:22 EST Findings: No consolidation or effusion. Normal size heart. No acute fracture. IMPRESSION: 1. No acute findings. This document has been electronically signed by: Lesvia Roldan MD on 07/13/2024 07:05:32
[2024-07-13 05:58] VITALS: BP 116/84; PULSE 122; RESP 20; TEMP 37.7; O2SAT 97
[2024-07-13 06:34] LABS: IDNOW Serial# 58CA691E; Strep A Nucleic Acid Negative (Negative)
[2024-07-13 07:05] LABS: Influenza A PCR POSITIVE (Negative); Influenza B PCR NEGATIVE (Negative); Resp Syncy Virus RNA Qual PCR NEGATIVE (Negative); SARS COV2 PCR INHOUSE NEGATIVE (Negative)
--- NOTE | 2024-07-13 09:15 | ED_ITS ---
HPI - General Adult General Chief complaint: Upper Respiratory Symptoms Stated complaint: acute cough & chest hurts Time Seen by Provider: 07/13/24 09:09 Source: patient Mode of arrival: ambulatory Limitations: no limitations History of Present Illness ED Provider: Yolanda English PA-C HPI narrative: Patient is a 24 year old assigned male at with a history of asthma, depression, [place], and GERD presenting to the emergency department today with a cough, headache, and sore throat. Patient states that over the last week he has had a sore throat, cough, and a headache. Patient denies any dizziness, lightheadedness, abdominal pain, nausea, vomiting, fever, chills, blurry vision, double vision, loss of vision, chest pain, difficulty breathing, shortness of breath, back pain, night sweats, pain with urination, increased urinary frequency, increased urinary urgency, blood in his urine or stool, syncope or a near syncopal episode, recent trauma or falls, bowel incontinence, bladder incontinence, or any other complaints at this time. Onset (ago): week(s) (1) Relieving factors: none Exacerbating factors: none Associated symptoms: cough Treatments prior to arrival: none Related Data Previous Rx's ?Medication ?Instructions ?Recorded triamcinolone acetonide 0.5 % 1 appl topical BID #30 grams 01/27/24 topical cream albuterol sulfate 90 mcg/actuation 2 puff inhalation Q6H PRN 02/23/24 aerosol inhaler (Ventolin HFA) shortness of breath or wheezing #8.5 grams clotrimazole 1 % topical cream 1 appl topical BID 4 weeks #45 03/10/24 grams Allergies Allergy/AdvReac Type Severity Reaction Status Date / Time No Known Allergies Allergy Verified 07/13/24 06:01 Review of Systems Constitutional: Constitutional: Reports no additional constitutional complaints, Denies chills, Denies fever(s), Reports headache(s) and Denies night sweats Eyes: Eyes: Reports no additional eye complaints, Denies blurry vision, Denies change in vision, Denies diplopia, Denies eye discharge, Denies loss of vision and Denies eye pain ENT: Denies dizziness, Reports headache(s) and Reports sore throat Cardiovascular: Cardiovascular: Reports no additional cardiovascular complaints, Denies chest pain, Denies lightheadedness, Denies Loss of Consciousness and Denies dyspnea Respiratory: Respiratory: Reports no additional respiratory complaints, Reports cough and Denies dyspnea Gastrointestinal: Gastrointestinal: Reports no additional gastrointestinal complaints, Denies abdominal pain, Denies melena, Denies hematochezia, Denies change in bowel habits and Denies change in stool character Genitourinary: Genitourinary: Reports no additional male genitourinary complaints, Denies hematuria, Denies oliguria, Denies difficulty urinating, Denies dysuria, Denies urinary frequency, Denies urinary hesitancy, Denies urinary incontinence and Denies urinary urgency Musculoskeletal: Musculoskeletal: Reports no additional musculoskeletal complaints, Denies numbness and Denies tingling Neurologic: Denies dizziness, Reports headache(s), Denies loss of vision, Denies numbness and Denies tingling Psychiatric: Psychiatric: Reports no additional psychiatric complaints Endocrine: Endocrine: Reports no additional endocrine complaints Hematologic/Lymphatic: Hematologic/Lymphatic: Reports no additional hematologic/lymphatic complaints Allergic/Immunologic: Allergic/Immunologic: Reports no additional allergic/immunologic complaints [facility] Past Medical History Attestation statement: The following information was validated with the patient. Source: old records reviewed and nursing notes reviewed Medical History Annual physical exam Rectal bleed Epidermal cyst Overweight (BMI 25.0-29.9) Asthma with acute exacerbation Shortness of breath COVID-19 virus infection Renal calculus, left Dysuria LFT elevation Asthma GERD (gastroesophageal reflux disease) Surgical History No pertinent past surgical history Family History Family History Mother No problems noted. Father No problems noted. Social History Social History Housing: Apartment Alcohol intake: current Comment: once a year Patient Tobacco Use Status: Never used Tobacco e-Cigarette/Vaping Use: Never Used Second Hand Smoke Exposure: No service: No Current occupational status: employed Cognitive needs: No Hearing needs: No Vision needs: No Physical Exam ED Vital Signs: Vital Signs - 24 hr 07/13/24 05:58 07/13/24 10:26 07/13/24 10:41 Temperature 99.9 F 99.7 F Pulse Rate 122 H 125 H 120 H Respiratory Rate 20 22 H 20 Blood Pressure 116/84 123/83 Pulse Oximetry 97 97 Oxygen Delivery Method Room Air Room Air BMI result Body Mass Index 30.0 Const General: cooperative, no acute distress, alert and awake Nutritional Appearance: well nourished Orientation/consciousness: patient oriented x3 Limitations: no limitations HENMT Head: Yes normal to inspection and Yes atraumatic Ears: hearing grossly normal bilaterally and external ears normal General nose exam: Normal external nose present, no nasal discharge noted and no epistaxis Face and sinus: Yes normal facial exam, No abrasion and No laceration Mouth: Normal oral and palatal mucosa present, no drooling and no muffled voice Eyes General: appearance normal, both eyes and all related structures Periorbital: periorbital findings normal Eyelids: Yes eyelids normal Conjunctivae: conjunctivae normal Pupils: Equal, round and reactive pupils present EOM: EOMs intact bilaterally Neck Neck: Yes normal visual inspection, Yes full ROM and Yes no lymphadenopathy Chest Chest palpation & inspection: normal inspection of the chest Resp Effort & Inspection: normal respiratory effort and able to speak in complete sentences Cardio Rate: tachycardic Rhythm: regular rhythm GI Inspection: Yes normal to inspection Neuro General: patient oriented x3 and moves all extremities Cranial nerves: Yes Equal, round and reactive pupils present Cognition (Neuro): normal cognition Extrem General: Yes normal to inspection, Yes full ROM and Yes capillary refill normal Psych Appearance: grossly normal Mental Status: mental status grossly normal Affect: normal affect Attitude: cooperative Thought process: Normal thought process present Thought content: Normal thought content present Insight: Good insight present (Psych) Medications Administered Discontinued Medications Generic Name Dose Route Start Last Admin Trade Name Freq PRN Reason Stop Dose Admin Albuterol Sulfate 2.5 mg/ 0 mg 07/13/24 10:23 07/13/24 10:25 Albuterol/Ipratropium 3 ml INHALE 07/13/24 10:24 1 dose ONCE ONE Administration Methylprednisolone Sodium Succinate 60 mg 07/13/24 09:33 07/13/24 10:20 Methylprednisolone Sod Succ 125 Mg/2 Ml Vial IM 07/13/24 09:34 60 mg ONCE ONE Administration Medical Decision Making Medical Decision Making MDM Narrative: Patient is a 24 year old assigned male at with a history of asthma, depression, [place], and GERD presenting to the emergency department today with a cough, headache, and sore throat. Patient's physical exam was unremarkable. Patient's EKG showed sinus tachycardia but was otherwise unremarkable. Patient's tachycardia is likely secondary to receiving albuterol and his influenza positive status. Patient's chest x-ray showed no acute process. Patient's influenza testing was positive. I explained my physical exam findings as well as all test results to the patient. I answered all questions asked by the patient. I stressed the importance of the patient taking his medication as directed (either prescribed or as the over the counter packaging recommends). I stressed the importance of the patient following up with his primary care provider. I stressed the importance of the patient returning to the emergency department immediately if his symptoms were to worsen or if he were to develop any dizziness, shortness of breath, difficulty breathing, chest pain, blurry vision, loss of vision, nausea, vomiting, abdominal pain, fever, chills, back pain, or any other complaints. Patient verbalized agreement and understanding with this treatment plan and discharge. Differential Diagnosis Differential Diagnoses: The differential diagnosis associated with the presentation includes Strep pharyngitis COVID-19 Influenza RSV Asthma exacerbation Admission/Observation Consideration of admission/observation: Escalation of care including ad mission/observation considered Patient would have been admitted to the hospital had his work up had any findings where hospital admission was appropriate and his clinical presentation warranted hospital admission. Lab Data [facility] Lab Attestation statement: I reviewed the patient's lab results. My interpretation of these results are in the [facility] Rationale portion of this note. Labs: Lab Results 07/13/24 Range/Units 06:17 Influenza Type A (PCR) POSITIVE A (Negative) Influenza Type B (PCR) NEGATIVE (Negative) RSV RNA Qual (PCR) NEGATIVE (Negative) SARS-CoV-2 RNA (RT-PCR) NEGATIVE (Negative) S. pyogenes GrpA DELL Negative (Negative) Independent Interpretation I performed an independent interpretation of an: EKG and Plain X-Ray Interpretation: My interpretation is in agreement with the radiologist's impression of this imaging study. CLINICAL HISTORY: cough 2 view chest x-ray Comparison: CR/SR - XR CHEST 2V - 05/15/22 22:22 EST Findings: No consolidation or effusion. Normal size heart. No acute fracture. IMPRESSION: 1. No acute findings. This document has been electronically signed by: Lesvia Roldan MD on 07/13/2024 07:05:32 Dictated By: Lesvia Roldan MD Signed By: Electronically signed by Lesvia Roldan MD 07/13/24 0706 Vent. Rate: 116 BPM Atrial Rate: 116 BPM P-R Int: 138 ms QRS Dur: 90 ms QT Int: 320 ms P-R-T Axes: 65 -5 34 degrees QTcB Int: 444 ms Sinus tachycardia Possible Left atrial enlargement Borderline ECG When compared with ECG of 16-May-2022 00:00, Vent. rate has increased by 45 bpm Electronically Signed By: Antonio Hugo Dictated By: Antonio Hugo MD Signed By: Electronically signed by Antonio Hugo MD 07/13/24 0908 Radiology Impression Discussion of test interpretation with radiology: I have reviewed the radiologist's reading. Discharge Plan Discharge Clinical Impression: Influenza Patient Disposition: Home, Self-Care Instructions: Influenza (DC) Additional Instructions: Follow up with your primary care provider. Return to the emergency department immediately if your symptoms worsen or if you develop any dizziness, shortness of breath, difficulty breathing, chest pain, blurry vision, loss of vision, nausea, vomiting, abdominal pain, fever, chills, back pain, or any other complaints. Prescriptions: No Action albuterol sulfate [Ventolin HFA] 90 mcg/actuation HFA aerosol inhaler 2 puff inhalation Q6H PRN (Reason: shortness of breath or wheezing) Qty: 8.5 0RF clotrimazole 1 % cream 1 appl topical BID 28 Days Qty: 45 0RF triamcinolone acetonide 0.5 % cream 1 appl topical BID Qty: 30 0RF Referrals: Po,Brandee Gomez MD [Primary Care Provider] - Stand Alone Forms: Work/School Release Interventions: ED Discharge Assessment Last Done: 07/13/24 10:41 Discharge Date/Time: 07/13/24 10:42 Print Language: Swiss
[2024-07-13] MEDS: methylPREDNISolone Sod Succ 125 MG/2 ML VIAL 60 MG IM (10:20)
[2024-07-13] MEDS: Albuterol Sulfate 2.5 MG, Albuterol/Iprat 2.5/0.5MG 3 ML 3 ML INHALE (10:25)
[2024-07-13 10:26] VITALS: PULSE 125; RESP 22; O2SAT 95
[2024-07-13 10:41] VITALS: BP 123/83; PULSE 120; RESP 20; TEMP 37.6; O2SAT 97
== END 2024-07-13 10:42 | disposition home or self-care (01) ==
PROVIDERS: Emergency Provider Emergency Medicine; PCP Internal Medicine
DX: J10.1 Influenza due to other identified influenza virus with other respiratory manifestations (principal); J45.901 Unspecified asthma with (acute) exacerbation; R00.0 Tachycardia, unspecified; J02.9 Acute pharyngitis, unspecified; R05.9 Cough, unspecified; R51.9 Headache, unspecified; F32.A Depression, unspecified; K75.81 Nonalcoholic steatohepatitis (NASH); K21.9 Gastro-esophageal reflux disease without esophagitis; Z03.818 Encounter for observation for suspected exposure to other biological agents ruled out
CPT/HCPCS: 0241U; 71046; 87651; 93005; 94640; 96372; 99284; J2919

== ENCOUNTER → 2024-07-13 06:12 | Outpatient (BNV) | payer OTHER, SELFPAY | PROVIDERS: Emergency Provider Emergency Medicine; PCP Internal Medicine; Visit Provider Internal Medicine Cardiovascular Disease | DX: R00.0 Tachycardia, unspecified (principal); R06.00 Dyspnea, unspecified | CPT/HCPCS: 93010 ==

== ENCOUNTER → 2024-07-13 06:20 | Outpatient (BNV) | payer OTHER, SELFPAY | PROVIDERS: PCP Internal Medicine; Visit Provider Radiology Diagnostic Radiology | DX: R05.9 Cough, unspecified (principal) | CPT/HCPCS: 71046 ==

== ENCOUNTER 2024-12-20 04:12 | Emergency (ER) | payer OTHER, SELFPAY ==
--- NOTE | ~2024-12-20 | XR_ITS ---
EXAMINATION: XR CHEST CLINICAL INFORMATION: cough/fever COMPARISON: July 13, 2024 TECHNIQUE: 2 views of the chest were obtained. FINDINGS: No hyperinflation. No consolidation, pleural effusion or pneumothorax. Cardiomediastinal silhouette size is normal. Osseous structures are intact. Mild S-shaped curvature of the thoracic spine. XR/XR chest 2V IMPRESSION: No acute airspace disease. Electronically signed by: Jerad Bunn MD 12/20/2024 08:10 AM EDT
[2024-12-20 04:15] VITALS: BP 119/81; PULSE 71; RESP 16; TEMP 36.2; O2SAT 97; BMI 30.7
[2024-12-20 04:45] LABS: IDNOW Serial# 58CA691E; Strep A Nucleic Acid Negative (Negative)
[2024-12-20 05:09] LABS: Resp Syncy Virus RNA Qual PCR NEGATIVE (Negative); SARS COV2 PCR INHOUSE NEGATIVE (Negative)
[2024-12-20 05:27] VITALS: PULSE 64; RESP 16; O2SAT 97
[2024-12-20] MEDS: Albuterol/Iprat 2.5/0.5MG 3 ML AMPUL.NEB INHALE (05:27)
[2024-12-20 06:00] VITALS: O2SAT 97
--- NOTE | 2024-12-20 07:11 | ED_ITS ---
HPI - URI/Sore Throat General Chief Complaint: Upper Respiratory Symptoms Stated Complaint: SOB, wheezing Time Seen by Provider: 12/20/24 07:02 Source: patient and old records reviewed Mode of arrival: ambulatory Limitations: no limitations History of Present Illness ED Provider: RAYSA GARDNER Narrative: 24 yo male with PMH of asthma who does not have rescue inhaler - notes both kids are sick and now he has fevers, runny nose, sore throat, cough for 1 day. He denies travel. He can swallow his salive. No n/v/d. He took OTC meds no relief. MD elicited complaint: fever, cough and rhinorrhea Pertinent past history: other Onset (ago): day(s) (1) Consistency: progressively worsening Severity: mild Able to tolerate fluids by mouth: Yes Exacerbating factors: swallowing Relieving factors: nothing Context: sick contacts Associated symptoms: fever, chills, headache, rhinorrhea, sore throat, cough and shortness of breath Treatments prior to arrival: none Related Data Previous Rx's ?Medication ?Instructions ?Recorded triamcinolone acetonide 0.5 % 1 appl topical BID #30 g roshan 01/27/24 topical cream albuterol sulfate 90 mcg/actuation 2 puff inhalation Q 6H PRN 02/23/24 aerosol inhaler (Ventolin HFA) shortness of breath or wheezing #8.5 grams clotrimazole 1 % topical cream 1 appl topical BID 4 we eks #45 03/10/24 grams Allergies Allergy/AdvReac Type Severity Reaction Status Date / Time No Known Allergies Allergy Verified 12/20/24 04:17 Review of Systems Review of Systems: Constitutional : pos Fever, pos Chills ENT/Mouth : No Hoarseness, pos sore throat, No Rhinorrhea Eyes: No Redness, No Discharge, No Vision Changes Cardiovascular : No Chest Pain, no SOB. Respiratory : positive Cough, pos Sputum, positive Wheezing, Gastrointestinal : No Nausea, No Vomiting, No Diarrhea, No abdominal Pain Genitourinary : No Dysuria, No Hematuria Musculoskeletal : No joint pain, No Myalgias Skin : No rash Neuro : No Weakness, No Numbness, No Headache All other systems reviewed and are negative PMFSH Past Medical History Attestation statement: The following information was validated with the patient. Source: old records reviewed Medical History Annual physical exam Rectal bleed Epidermal cyst Overweight (BMI 25.0-29.9) Asthma with acute exacerbation Shortness of breath COVID-19 virus infection Renal calculus, left Dysuria LFT elevation Asthma GERD (gastroesophageal reflux disease) Surgical History No pertinent past surgical history Family History Family History Mother No problems noted. Father No problems noted. Social History Social History Housing: Apartment Alcohol intake: current Comment: once a year Patient Tobacco Use Status: Never used Tobacco Smoked in Last 30 Days: No e-Cigarette/Vaping Use: Never Used Second Hand Smoke Exposure: No Use of substances other than those prescribed or required for medical reasons: No Advance Directives: No Advance Directives Information Provided: No Do you have a plan to hurt others: No Plan service: No Current occupational status: employed Cognitive needs: No Hearing needs: No Vision needs: No Physical Exam Vital Signs: Vital Signs: Last Vital Signs Temp 97.7 F 12/20/24 07:38 Pulse 82 12/20/24 07:38 Resp 19 12/20/24 07:38 BP 122/68 12/20/24 07:38 Pulse Ox 98 12/20/24 07:38 O2 Del Method Room Air 12/20/24 07:38 BMI result Body Mass Index 30.7 Appearance: Alert. Oriented X3. No acute distress. Eyes: Pupils equal, round and reactive to light. ENT: Pharynx mild erythema no exudates Neck: Normal inspection. Neck supple. CVS: Normal heart rate and rhythm. Pulses normal. Respiratory: No respiratory distress. Breath sounds normal. Abdomen: Soft and nontender. Skin: Skin warm and dry. Normal skin color. Normal skin turgor. Extremities: No lower extremity edema. No calf ttp Neuro: Oriented X 3. No motor deficit. No sensory deficit. CN2-12 intact Medications Administered Discontinued Medications Generic Name Dose Route Start Last Admin Trade Name Freq PRN Reason Stop Dose Admin Albuterol Sulfate 2 puff 12/20/24 07:23 12/20/24 07:34 Albuterol Sulfate 90 Mcg 8 Gm Inhaler INHALE 12/20/24 07:24 2 puff ONCE ONE Administration Albuterol/Ipratropium 3 ml 12/20/24 05:26 12/20/24 05:27 Albuterol/Iprat 2.5/0.5mg 3 Ml Ampul.Neb INHALE 12/20/24 05:27 3 ml ONCE ONE Administration Dexamethasone Sodium Phosphate 8 mg 12/20/24 07:23 12/20/24 07:34 Dexamethasone Sod Phosphate 4 Mg/Ml Vial PO 12/20/24 07:24 8 mg ONCE ONE Administration Ibuprofen 600 mg 12/20/24 05:20 12/20/24 05:29 Ibuprofen 600 Mg Tablet PO 12/20/24 05:21 600 mg ONCE ONE Administration Medical Decision Making Medical Decision Making [facility] Narrative: 24 yo male with PMH of asthma here with c/o URI symptoms after exposure to children. He is not toxic, I assessed after this treatment there is no wheezing. A this time will need CXR, viral panel, strep swab, rescue inhaler and dose of dexamethasone. Overall well appearing. Differential Diagnosis Differential Diagnoses: The differential diagnosis associated with the presentation includes URI, viral syndrome, bronchitis, pneumonia Admission/Observation Consideration of admission/observation: Escalation of care including admission/observation considered VS stable, no resp distress, no hypoxia, stable for DC Lab Data MDM Lab Attestation statement: I reviewed the patient's lab results. Labs: Lab Results 12/20/24 Range/Units 04:27 Influenza Type A (PCR) NEGATIVE (Negative) Influenza Type B (PCR) NEGATIVE (Negative) RSV RNA Qual (PCR) NEGATIVE (Negative) SARS-CoV-2 RNA (RT-PCR) NEGATIVE (Negative) S. pyogenes GrpA DELL Negative (Negative) Independent Interpretation I performed an independent interpretation of an: Plain X-Ray (normal ) Radiology Impression Discussion of test interpretation with radiology: I have reviewed the radiologist's reading. External Record Review External record reviewed: Outpatient record Prescription Management I considered prescription management with: Other Discharge Plan Discharge Clinical Impression: Upper respiratory infection Qualifiers: URI type: unspecified URI Qualified Code(s): J06.9 - Acute upper respiratory infection, unspecified Patient Disposition: Home, Self-Care Instructions: Upper Respiratory Infection (ED) Additional Instructions: negative for strep, flu, covid, rsv chest xray normal rest and stay hydrated return for any worsening symptoms or concerns alternate tylenol and motrin for fever use inhaler 2 puffs every 4 hours for wheezing given steroids while you were here to decrease any lung inflammation Prescriptions: No Action albuterol sulfate [Ventolin HFA] 90 mcg/actuation HFA aerosol inhaler 2 puff inhalation Q6H PRN (Reason: shortness of breath or wheezing) Qty: 8.5 0RF clotrimazole 1 % cream 1 appl topical BID 28 Days Qty: 45 0RF triamcinolone acetonide 0.5 % cream 1 appl topical BID Qty: 30 0RF Print Language: Cook Islander
[2024-12-20] MEDS: Albuterol Sulfate 90 MCG 8 GM INHALER 2 PUFF INHALE (07:34)
[2024-12-20 07:38] VITALS: BP 122/68; PULSE 82; RESP 19; TEMP 36.5; O2SAT 98
[2024-12-20 08:32] VITALS: BP 119/65; PULSE 88; RESP 19; TEMP 36.4; O2SAT 98
[2024-12-20 08:33] VITALS: BP 119/65; PULSE 88; RESP 19; TEMP 36.4; O2SAT 98
== END 2024-12-20 08:34 | disposition home or self-care (01) ==
PROVIDERS: Emergency Provider Emergency Medicine; PCP Internal Medicine
DX: J06.9 Acute upper respiratory infection, unspecified (principal); J02.9 Acute pharyngitis, unspecified; R05.9 Cough, unspecified; R50.9 Fever, unspecified; R09.89 Other specified symptoms and signs involving the circulatory and respiratory systems
CPT/HCPCS: 71046; 87637; 87651; 94640; 99284; 99285; J1100

== ENCOUNTER → 2024-12-20 07:23 | Outpatient (BNV) | payer OTHER, SELFPAY | PROVIDERS: Emergency Provider Emergency Medicine; PCP Internal Medicine; Visit Provider Radiology Diagnostic Radiology | DX: R05.9 Cough, unspecified (principal); R50.9 Fever, unspecified | CPT/HCPCS: 71046 ==

== ENCOUNTER 2025-01-28 08:58 | Outpatient (AMB) | payer OTHER, SELFPAY ==
[2025-01-28 09:00] VITALS: BP 124/84; PULSE 110; TEMP 36.1; O2SAT 98; BMI 32.0
--- NOTE | 2025-01-28 09:00 | MHC.PC.OV ---
Vital Signs 01/28/25 09:00 Height 5 ft 5 in Weight 192 lb 2 oz BMI 32.0 BP 124/84 Blood Pressure Location Lt brachial Position Sitting Pulse 110 H Pulse Source Pulse Oximeter Temp 97.0 F Temp Source Temporal Artery Scan Pulse Oximetry (%) 98 Oxygen Delivery Method Room Air Intake Visit Reasons: Annual Exam Accompanied by: Significant Other Allergies No Known Allergies Allergy (Verified 01/28/25 09:03) Medication List - Last Reconciled 01/28/25 by Brandee Andrews MD albuterol sulfate 90 mcg/actuation (Ventolin HFA) 2 puffs inhalation Q6H PRN clotrimazole 1% 1 appl topical BID 4 weeks triamcinolone acetonide 0.5% 1 appl topical BID Tobacco use date assessed: 01/28/25 Dental Screening Dental Screen Date: 01/28/25 Did you have a dental visit in the last 12 months?: No Did you have a dental problem in the last 6 months where you did not have access to dental care?: No Was dental information given to patient?: Patient has dentist [facility] Medical History Annual physical exam Rectal bleed Epidermal cyst Overweight (BMI 25.0-29.9) Asthma with acute exacerbation Shortness of breath COVID-19 virus infection Renal calculus, left Dysuria LFT elevation Asthma GERD (gastroesophageal reflux disease) Surgical History No pertinent past surgical history Family History Mother No problems noted. Father No problems noted. Social History (Updated 01/28/25 @ 09:14 by Brandee Andrews MD) Housing: Apartment Alcohol intake: current Comment: once Q 4 months 2 beers Patient Tobacco Use Status: Never used Tobacco e-Cigarette/Vaping Use: Never Used Second Hand Smoke Exposure: No service: No Current occupational status: employed Cognitive needs: No Hearing needs: No Vision needs: No Questionnaire PHQ-9 Over the last 2 weeks, how often have you been bothered by any of the following problems? 1. Little interest or pleasure in doing things: not at all 2. Feeling down, depressed, or hopeless: not at all 3. Trouble falling or staying asleep, or sleeping too much: not at all 4. Feeling tired or having little energy: not at all 5. Poor appetite or overeating: not at all 6. Feeling bad about yourself - or that you are a failure or have let yourself or your family down: not at all 7. Trouble concentrating on things, such as reading the newspaper or watching television: not at all 8. Moving or speaking so slowly that other people could have noticed. Or the opposite - being so fidgety or restless that you have been moving around a lot more than usual: not at all 9. Thoughts that you would be better off or of hurting yourself in some way: not at all Total score: 0 Source: Developed by Drs. Isaac Stack, Meena Lau, Riaz Ceja and colleagues, with an educational john from [employer]. Thrive Questionnaire Date Thrive assessed: 01/21/25 I am a: Patient What is your living situation today?: I have a steady place to live Within the past 12 months, did the food you bought not last and you didn't have the money to get more?: Never true Within the past 12 months, did you worry whether your food would run out before you got money to buy more?: Never true Do you have trouble paying for medicines?: No Do you have trouble getting transportation to medical appointments?: No Do you have trouble paying your heating and electricity bill?: No Do you have trouble taking care of your child, family member or friend?: No Do you have trouble with day-to-day activities such as bathing, preparing meals, shopping, managing finances, etc.?: No Are you currently unemployed and looking for a job?: No Are you interested in more education?: No Please select the resources that you would like help with: None Currently or been in a relationship where the following occur: I choose not to answer THRIVE Score: 0 AUDIT C Alcohol Use Questionnaire (AUDIT-C) 1. How often do you have a drink containing alcohol?: Monthly or less 2. How many drinks containing alcohol do you have on a typical day when you are drinking?: 1 or 2 3. How often do you have six or more drinks on one occasion?: Never Total Score: 1 VINEET-7 AMB Questionnaire VINEET-7 Date VINEET - 7 assessed: 01/28/25 Feeling nervous, anxious, or on edge: 0 = Not at all Not being able to stop or control worryin = Not at all Worrying too much about different things: 0 = Not at all Trouble relaxin = Not at all Being so restless that it is hard to sit still: 0 = Not at all Becoming easily annoyed or irritable: 0 = Not at all Feeling afraid as if something awful might happen: 0 = Not at all Total VINEET-7 score (0-4 normal; 5-9 mild; 10-14 moderate; 15-21 severe): 0 Source: Developed by Drs. Isaac Stack, Meena Lau, Riaz Ceja and colleagues, with an educational john from [employer]. Review of Systems Const Denies poor appetite and Denies weakness Eyes Denies no additional complaints ENT Reports Normal hearing present, Denies dizziness, Denies nasal congestion, Denies tinnitus and Denies sore throat Card Denies chest pain, Denies syncope, Denies rapid heart rate and Denies dyspnea Resp Denies cough and Denies dyspnea GI Denies change in stool character, Reports constipation, Denies diarrhea, Denies nausea and Denies vomiting Denies dysuria and Denies urinary frequency Neuro Reports Normal hearing present, Denies confusion, Denies dizziness, Denies syncope and Denies weakness Psych Denies confusion Physical exam (Primary Care) Vital Signs: Last Vital Signs Temp 97.0 F 01/28/25 09:00 Pulse 110 H 01/28/25 09:00 BP 124/84 01/28/25 09:00 Pulse Ox 98 01/28/25 09:00 Oxygen Delivery Method Room Air 01/28/25 09:00 BMI result Body Mass Index 32.0 Tobacco/Smoking Status: Tobacco use Status Tobacco use date assessed 01/28/25 01/28/25 09:05 Patient Tobacco Use Status Never used Tobacco 01/28/25 09:14 e-Cigarette/Vaping Use Never Used 01/28/25 09:14 PHQ-9: PHQ-9 Score PHQ-9: Total score 0 01/28/25 09:09 Thrive Assessment: Date of Thrive Assessment Date Thrive assessed 01/21/25 01/28/25 09:05 Currently or been in a relationship where the following occur: I choose not to answer Const General: No confusion Orientation/consciousness: No confusion HENMT Head: Yes normocephalic Ears: external ears normal and TM's normal bilaterally Face and sinus: Yes normal facial exam Mouth: moist mucous membranes Throat: Yes tonsils normal Eyes Conjunctivae: conjunctivae normal Pupils: Equal, round and reactive pupils present and Pupil accommodation reflex normal Direct Ophthalmoscopy: normal light reflex Neck Neck: No lymphadenopathy Thyroid: Thyroid normal Chest Chest palpation & inspection: normal inspection of the chest Resp Effort & Inspection: normal respiratory effort and no audible wheezes Auscultation: clear to auscultation bilaterally, no crackles, no wheezes and lung sounds not diminished Cardio Rate: regular rate Rhythm: regular rhythm Peripheral pulses: radial pulses present and dorsalis pedis present GI Palpation (GI): no masses Auscultation: normal bowel sounds and normoactive bowel sounds Rectal Exam - Male: Yes deferred Skin General skin exam: no rashes or lesions noted Rashes: no rashes Neuro General: No confusion Cranial nerves: Yes Equal, round and reactive pupils present and Yes Normal hearing present Cognition (Neuro): normal cognition Gait exam (Neuro): Normal gait present Motor exam (neuro): 5/5 motor strength present throughout Deep tendon reflexes (DTR's): Right brachioradialis reflex intensity grade: 2+, Left brachioradialis reflex intensity grade: 2+, Right patellar reflex intensity grade: 2+ and Left patellar reflex intensity grade: 2+ Extrem General: No edema Coding Level of Care Code Est Pt Prev Care 18-39y(92093) Diagnoses Annual physical exam Z00.00 Asthma J45.909 GERD (gastroesophageal reflux disease) K21.9 BEACH (nonalcoholic steatohepatitis) K75.81 Impaired fasting blood sugar R73.01 Obesity (BMI 30.0-34.9) E66.9 Tinea pedis B35.3 Assessment & Plan Assessment & Plan (1) Annual physical exam: Code(s): Z00.00 - Encounter for general adult medical examination without abnormal findings Category: Medical Plan: Patient is advised to eat healthy, keep well hydrated, keep active and have adequate sleep. (2) Asthma: Code(s): J45.909 - Unspecified asthma, uncomplicated Category: Medical Plan: Patient has albuterol inhaler as needed (3) GERD (gastroesophageal reflux disease): Code(s): K21.9 - Gastro-esophageal reflux disease without esophagitis Category: Medical Plan: Avoid the foods that causes that usually spicy foods, tomato products, juices, coffee, soda and foods that your sensitive to. After eating do not lie down, allow 3-4 hours before in lie down. And keep the head of bed above 30 degrees to avoid the acid from going up. (4) BEACH (nonalcoholic steatohepatitis): Comment: BASELINE LABS; 08/24/20 WBC 13.3 H Hgb 16.0 Hct 47.1 Plt Count 272 Neut % (Auto) 80.3 H Lymph % (Auto) 9.9 L Abs Immat Gran (auto) 0.05 H Absolute Neuts (auto) 10.7 H Estimated GFR > 60 Ferritin 111 Total Bilirubin 0.4 Direct Bilirubin 0.2 GGT 38 AST 22 ALT 27 Alkaline Phosphatase 80 Lipase 9 Ceruloplasmin 29 Alpha Fetoprotein 4.5 LUTHER Screen POSITIVE A LUTHER Titer 1:80 H Anti-Mitochondrial Ab NEGATIVE Anti-Smooth Muscle Ab <20 Hepatitis A IgM Ab Nonreactive Hep Bs Antigen Negative Hep Bs Antibody NONREACTIVE Hep B Core Total Ab Nonreactive Hepatitis C Ab (EIA) Nonreactive HIV 1&2 Ab/P24 Ag 4thGn Nonreactive ULTRASOUND OF THE ABDOMEN WITH ELASTOGRAPHY 07/30/2021 (F3) CURRENT LABS . ULTRASOUND OF THE ABDOMEN WITH ELASTOGRAPHY 07/30/2021 (F3) US/US abdomen comp w elastography IMPRESSION: 1. Impression: Prominent or echogenic appearing intrahepatic bile ducts similar to August 2020 exam. The liver is otherwise normal appearing. Small right renal cyst. Small left renal stone. ? 2. Liver elastography:? Adequate liver sampling.? Suggestive of compensated advanced chronic liver disease but need further test for confirmation. CT ABD AND PELVIS 08/25/20 ? IMPRESSION: 1. No appreciable biliary ductal dilatation. No acute hepatobiliary abnormality by CT. 2. Subtle haziness around the gastric antrum is likely due to motion artifact. Inflammation from peptic ulcer disease is also on the differential, particularly given the mild wall thickening in this region, though specificity of gastric findings on CT is relatively low. Consider gastroenterology consultation if this correlates with the potential site of patient's symptoms.? Code(s): K75.81 - Nonalcoholic steatohepatitis (BEACH) Category: Medical Plan: Low-fat diet and exercise (5) Impaired fasting blood sugar: Code(s): R73.01 - Impaired fasting glucose Category: Medical Plan: Decrease the amount of carbohydrate intake, pasta, bread, rice and potatoes are all sugar and that is aside from all the sweet stuff, remember that fruits are good but they are Sweet also. (6) Obesity (BMI 30.0-34.9): Code(s): E66.9 - Obesity, unspecified Category: Medical Plan: Diet and exercise (7) Tinea pedis: Code(s): B35.3 - Tinea pedis Category: Medical Plan History of Present Illness The patient is a 24-year-old male presenting for an annual physical examination and management of chronic conditions. The patient has a history of obesity, with a recent weight gain of 8 pounds noted since the last visit. He has been advised to monitor his diet and exercise regularly to manage his weight. The patient has a history of asthma and uses an albuterol inhaler as needed. He reports rare use of the inhaler and no recent exacerbations. The patient has been diagnosed with Gastroesophageal Reflux Disease (GERD) and is advised to follow a low-fat diet and exercise regimen to manage symptoms. The patient has hepatic steatosis, confirmed by an ultrasound showing fatty liver. He is advised to maintain a healthy diet and exercise to prevent progression to cirrhosis. The patient has a history of athlete's foot and requests a stronger cream than [id number] options. He is advised to apply the cream twice daily for one month and then use a preventative powder. 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 Review of Systems - General: Denies fever, chills, or weight loss - Respiratory: Denies dyspnea, cough, or wheezing - Cardiovascular: Denies chest pain, palpitations, or syncope - Gastrointestinal: Denies nausea, vomiting, or dysphagia - Neurological: Denies dizziness or headaches - Genitourinary: Denies dysuria or nocturia - Musculoskeletal: Denies joint pain or swelling Physical Exam General: Cooperative, healthy appearing, comfortable, no acute distress and well developed Orientation: Patient oriented x3 Limitations: No limitations Head: Normal to inspection Ears: Hearing grossly normal bilaterally Nose: Normal external nose present Face and sinus: Normal facial exam Eyes: Appearance normal, both eyes and all related structures Neck: Normal visual inspection and Yes full ROM Respiratory: Normal respiratory effort and able to speak in complete sentences. Clear to auscultation bilaterally Cardiovascular: Regular rate and rhythm. Normal S1 and S2 GI: Normal to inspection. Soft to palpation and nontender Skin: No rashes or lesions noted Neuro: Patient oriented x3 Extremities: Normal to inspection Results - Labs: Elevated blood sugar, normal hemoglobin A1c - Imaging: Ultrasound showing fatty liver Plan The patient is advised to continue monitoring his weight through diet and exercise, focusing on reducing intake of high-calorie foods and increasing physical activity. For asthma management, the patient should use the albuterol inhaler as needed and report any increase in usage or symptoms. To manage GERD, the patient is advised to adhere to a low-fat diet and exercise regularly. For hepatic steatosis, maintaining a healthy lifestyle is crucial to prevent progression to cirrhosis. The patient is prescribed a stronger cream for athlete's foot, to be applied twice daily for one month, followed by a preventative powder. Regular follow-up is recommended to monitor blood sugar and liver function, with fasting blood work to be scheduled at the patient's convenience. Patient was informed and verbally consented to the use of an ambient scribe for clinic note documentation during this visit. Discussion Notes During the visit, I discussed the importance of maintaining a healthy lifestyle to manage obesity and prevent progression of hepatic steatosis to cirrhosis. We reviewed the management of asthma with the use of an albuterol inhaler as needed and the need to report any increase in symptoms. I advised the patient on dietary modifications to manage GERD and emphasized the importance of regular exercise. For athlete's foot, I prescribed a stronger cream and discussed the use of a preventative powder after the initial treatment period. We also planned for regular follow-up to monitor blood sugar and liver function, with fasting blood work to be done at the patient's convenience. Patient Instructions - Follow a low-fat diet and exercise regularly to manage weight and GERD. - Use albuterol inhaler as needed and report any increase in asthma symptoms. - Apply prescribed cream for athlete's foot twice daily for one month, then use preventative powder. - Schedule fasting blood work at your convenience to monitor blood sugar and liver function. Orders: Orders Complete Blood Count Auto Diff Today R73.01 - Impaired fasting glucose Free T4 (Free Thyroxine) Today R73.01 - Impaired fasting glucose Thyroid Stimulating Hormone Today R73.01 - Impaired fasting glucose Lipid Panel Today E78.00 - Pure hypercholesterolemia, unspecified, R73.01 - Impaired fasting glucose Comprehensive Met. Panel Today R73.01 - Impaired fasting glucose Hemoglobin A1c Today R73.01 - Impaired fasting glucose Vitamin B12 and Folate Today R73.01 - Impaired fasting glucose Medications: New miconazole nitrate 2% (Zeasorb AF) 1 appl topical BID 85 grams 3RF B35.3 - Tinea pedis ketoconazole 2% 1 appl topical BID 60 grams 1RF B35.3 - Tinea pedis Discontinued clotrimazole 1% Discontinued Reason: Duplicate 1 appl topical BID 4 weeks 45 grams 0RF
== END 2025-01-28 09:29 | disposition home or self-care (01) ==
LOC: HO.HMCH 08:59
PROVIDERS: PCP Internal Medicine; Visit Provider Internal Medicine
DX: Z00.00 Encounter for general adult medical examination without abnormal findings (principal); J45.909 Unspecified asthma, uncomplicated; E66.9 Obesity, unspecified; Z68.32 Body mass index [BMI] 32.0-32.9, adult; K21.9 Gastro-esophageal reflux disease without esophagitis; K75.81 Nonalcoholic steatohepatitis (NASH); R73.01 Impaired fasting glucose; B35.3 Tinea pedis

== ENCOUNTER → 2025-01-28 08:58 | Outpatient (BNVA) | payer OTHER, SELFPAY | PROVIDERS: PCP Internal Medicine; Visit Provider Internal Medicine | DX: Z00.00 Encounter for general adult medical examination without abnormal findings (principal); J45.909 Unspecified asthma, uncomplicated; K21.9 Gastro-esophageal reflux disease without esophagitis; K75.81 Nonalcoholic steatohepatitis (NASH); R73.01 Impaired fasting glucose; E66.9 Obesity, unspecified; B35.3 Tinea pedis; E78.00 Pure hypercholesterolemia, unspecified | CPT/HCPCS: 99395 ==

== ENCOUNTER 2025-01-31 10:58 | Outpatient (AMB) | payer OTHER, SELFPAY ==
[2025-01-31 11:04] VITALS: BP 102/70; PULSE 70; TEMP 37; O2SAT 97; BMI 32.4
--- NOTE | 2025-01-31 11:04 | AM.OFFWIN_ITS ---
Intake Vital Signs 01/31/25 11:04 Height 5 ft 5 in Weight 195 lb BMI 32.4 BP 102/70 Blood Pressure Location Lt brachial Position Sitting Pulse 70 Pulse Source Pulse Oximeter Temp 98.6 F Temp Source Oral Pulse Oximetry (%) 97 Oxygen Delivery Method Room Air Intake Visit Reasons: EP discomfort in genital area Intake Note: pt presents with concern for an itchy and uncomfortable anal area for 3 days, directly after a physical exam with PCP where an internal anal exam was not performed. states he is a little constipated. Patient Tobacco Use Status: Never used Tobacco Allergies No Known Allergies Allergy (Verified 01/31/25 11:05) Do you need a note to return to daycare/school/sports/work: Yes HPI HPI Comments History of Present Illness Details 24 y/o Male patient who presents to the walk in clinic with c/o rectal Pain and itching for 3 days now. He does endorse constipation. Denies rectal bleeding. [facility] Medical History Annual physical exam Rectal bleed Epidermal cyst Overweight (BMI 25.0-29.9) Asthma with acute exacerbation Shortness of breath COVID-19 virus infection Renal calculus, left Dysuria LFT elevation Asthma GERD (gastroesophageal reflux disease) Surgical History No pertinent past surgical history Family History Mother No problems noted. Father No problems noted. Social History (Updated 01/28/25 @ 09:14 by Brandee Andrews MD) Housing: Apartment Alcohol intake: current Comment: once Q 4 months 2 beers Patient Tobacco Use Status: Never used Tobacco e-Cigarette/Vaping Use: Never Used Second Hand Smoke Exposure: No service: No Current occupational status: employed Cognitive needs: No Hearing needs: No Vision needs: No Review of Systems Const All systems reviewed & are unremarkable except as noted in HPI and below Physical Exam Vital Signs: Last Vital Signs Temp 98.6 F 01/31/25 11:04 Pulse 70 01/31/25 11:04 BP 102/70 01/31/25 11:04 Pulse Ox 97 01/31/25 11:04 Oxygen Delivery Method Room Air 01/31/25 11:04 BMI result Body Mass Index 32.4 Const General: no acute distress Nutritional Appearance: overweight Orientation/consciousness: patient oriented x3 GI Inspection: Yes obesity Palpation (GI): Soft to palpation, not firm, nontender and no guarding Auscultation: normal bowel sounds Rectal Exam - Male: Yes deferred Neuro General: patient oriented x3, gait normal and moves all extremities Psych Speech and movement: Normal speech and movement present Assessment & Plan Assessment & Plan (1) Rectal or anal pain: Code(s): K62.89 - Other specified diseases of anus and rectum Plan: Ordered Hydrocortisone Cream BID. (2) Constipation: Code(s): K59.00 - Constipation, unspecified Plan: Ordered SenoKot PRN Ordered Miralax for daily use. Medications: New sennosides (Senokot) 8.6 mg PO BEDTIME 30 tabs 0RF K59.00 - Constipation, unspecified hydrocortisone 2.5% 1 appl NV BID-QID PRN 30 grams 0RF hemorrhoids K62.89 - Other specified diseases of anus and rectum polyethylene glycol 3350 (Miralax) 17 grams PO DAILY 119 grams 0RF constipation K59.00 - Constipation, unspecified Discontinued triamcinolone acetonide 0.5% Discontinued Reason: Patient Refused 1 appl topical BID 30 grams 0RF L23.9 - Allergic contact dermatitis, unspecified cause Coding Level of Care Code Est Pt Level 4 (53681) Diagnoses Rectal or anal pain K62.89 Constipation K59.00 Time Spent (min) 20
== END 2025-01-31 11:32 | disposition home or self-care (01) ==
PROVIDERS: PCP Internal Medicine; Visit Provider Nurse Practitioner Family
DX: K62.89 Other specified diseases of anus and rectum (principal); K59.00 Constipation, unspecified

== ENCOUNTER → 2025-01-31 10:58 | Outpatient (BNVA) | payer OTHER, SELFPAY | PROVIDERS: PCP Internal Medicine; Visit Provider Nurse Practitioner Family | DX: K62.89 Other specified diseases of anus and rectum (principal); K59.00 Constipation, unspecified; L23.9 Allergic contact dermatitis, unspecified cause | CPT/HCPCS: 99212 ==

== ENCOUNTER 2025-05-28 11:35 | Outpatient (AMB) | payer OTHER, SELFPAY ==
[2025-05-28 11:40] VITALS: BP 110/66; PULSE 112; RESP 17; TEMP 37.4; O2SAT 98; BMI 33.9
--- NOTE | 2025-05-28 11:40 | AM.OFFWIN_ITS ---
Intake Vital Signs 05/28/25 11:40 Height 5 ft 5 in Weight 204 lb BMI 33.9 BP 110/66 Blood Pressure Location Lt brachial Position Sitting Respiration 17 Pulse 112 H Pulse Source Pulse Oximeter Temp 99.3 F Temp Source Oral Pulse Oximetry (%) 98 Oxygen Delivery Method Room Air Intake Visit Reasons: EP flu symptoms Intake Note: Pt is here today c/o H/A, nasal congestion and a cough day Patient Tobacco Use Status: Never used Tobacco Manuscript Reader Required: No Allergies No Known Allergies Allergy (Verified 05/28/25 12:08) Medication List - Last Reconciled 05/28/25 by Rasheeda German, ALTERATION HAND- albuterol sulfate 90 mcg/actuation (Ventolin HFA) 2 puffs inhalation Q6H PRN HPI HPI Comments History of Present Illness Details History of Present Illness The patient is a 25 year old male presenting with flu-like symptoms. Influenza: - The patient reports a one-day history of flu-like symptoms, including headache, nasal congestion, and cough. - He also experienced difficulty breathi ng yesterday. - He reports a known exposure to a frien d who tested positive for influenza on Friday. - He took pseudoephedrine for sinus pres sure, which provided some relief. Asthma: - The patient has a history of asthma an d uses an albuterol inhaler. - He is concerned he may not have enough medication in his current inhaler. Past Medical History - Asthma Review of Systems - Constitutional: Reports feeling sick s merari yesterday and sweating while sleeping. - HEENT: Reports headache and nasal farhan estion. - Respiratory: Reports cough and had tro uble breathing yesterday. - Allergies: Denies any medication aller gies. Physical Exam General: Well developed, well nourished, in no acute distress. Appears stated age. Mild sick appearing but not toxic Head: Normocephalic, atraumatic. Eyes: Pupils are equal, round and reactive to light and accommodation. Conjunctivae are clear. Vision grossly normal. Ears: TM intact and clear bilat Nose: Mild congestion Pharynx: Clear Lungs: Clear to auscultation bilaterally. No rales, rhonchi or wheeze noted. Good air flow in all chin. Dry cough w/o distress Heart: Regular rate and rhythm. Mildly tachycardic with a heart rate of 112. No murmurs, click, rubs or gallops are noted. Skin: PWD Medical Decision Making The patient is a 25-year-old male with a history of asthma presenting with a one-day history of flu-like symptoms including headache, nasal congestion, and cough. He has a known exposure to a friend who recently tested positive for influenza. His vital signs are notable for a low-grade fever of 99.3 F and mild tachycardia with a heart rate of 112. Given the acute onset, characteristic symptoms, and direct sick contact, the clinical diagnosis is influenza. Although the physical exam reveals clear lungs, his history of asthma places him at higher risk for complications. Therefore, treatment will be initiated with the antiviral medication oseltamivir (Tamiflu) to shorten the duration of illness. A short course of prednisone will be prescribed as a prophylactic measure to prevent an asthma exacerbation. For symptomatic relief, a cough suppressant is indicated. A refill of his albuterol inhaler will be provided to ensure he has adequate supply. The patient was counseled on rest, hydration, and return precautions. Once recovered, he is advised to obtain an influenza vaccination. Plan 1. Influenza - Prescribed Tamiflu, one tablet to be t aken twice a day for five days. - Prescribed a cough medication to be ta mona three times a day as needed. - The patient was advised to get plenty of rest and stay hydrated. - He was instructed that symptoms may la st for 7-10 days, and to return if they last more than two weeks or worsen after 10 days. 2. Asthma - Prescribed prednisone, one tablet per day for five days, to help with breathing. - A refill of his albuterol inhaler will be sent to his preferred pharmacy. 3. Health Maintenance - Discussed influenza vaccination. - Advised the patient to get a flu shot once he has recovered, suggesting a local [facility] pharmacy for a walk-in visit for convenience. Patient Instructions - Take Tamiflu, one tablet two times a d ay for five days. Be sure to complete the entire course of medication. - Take prednisone, one tablet once a day for five days. - You can take the prescribed cough medi cine up to three times a day if needed for your cough. - A refill for your albuterol inhaler mcclelland s been sent to the [facility] on [address]. - It is okay to continue using over-the- counter medicines like Sudafed for your symptoms. - Be sure to get plenty of rest and drin k lots of fluids. - It is normal for flu symptoms to last for 7 to 10 days. - You should come back to be seen if you r symptoms get worse after 10 days or l ast for more than two weeks. - After you feel better, it is recommend ed that you get a flu shot. You can go to a local [facility] pharmacy for a convenient walk-in visit. Consent Patient was informed and verbally consented to the use of an ambient scribe for clinic note documentation during this visit. [facility] Medical History (Updated 05/28/25 @ 12:16 by SAIDA Palmer-) Annual physical exam Asthma Asthma with acute exacerbation Constipation COVID-19 virus infection Dysuria Epidermal cyst GERD (gastroesophageal reflux disease) LFT elevation Overweight (BMI 25.0-29.9) Rectal bleed Rectal or anal pain Renal calculus, left Shortness of breath Surgical History No pertinent past surgical history Family History Mother No problems noted. Father No problems noted. Social History (Updated 01/28/25 @ 09:14 by Brandee Andrews MD) Housing: Apartment Alcohol intake: current Comment: once Q 4 months 2 beers Patient Tobacco Use Status: Never used Tobacco e-Cigarette/Vaping Use: Never Used Second Hand Smoke Exposure: No service: No Current occupational status: employed Cognitive needs: No Hearing needs: No Vision needs: No Physical Exam Vital Signs: Last Vital Signs Temp 99.3 F 05/28/25 11:40 Pulse 112 H 05/28/25 11:40 Resp 17 05/28/25 11:40 BP 110/66 05/28/25 11:40 Pulse Ox 98 05/28/25 11:40 Oxygen Delivery Method Room Air 05/28/25 11:40 BMI result Body Mass Index 33.9 Assessment & Plan Assessment & Plan (1) Flu-like symptoms: Code(s): R68.89 - Other general symptoms and signs (2) Asthma: Code(s): J45.909 - Unspecified asthma, uncomplicated Qualifiers: Asthma severity: mild Asthma persistence: intermittent Asthma complication type: uncomplicated Qualified Code(s): J45.20 - Mild intermittent asthma, uncomplicated Plan . Medications: New oseltamivir (Tamiflu) 75 mg PO Q12H 5 days 10 caps 0RF prednisone 10 mg PO DAILY 5 tabs 0RF prednisone 10 mg PO DAILY 5 tabs 0RF benzonatate 100 mg PO TID 10 days PRN 30 caps 1RF cough benzonatate 100 mg PO TID PRN 30 caps 1RF cough 10 days oseltamivir (Tamiflu) 75 mg PO Q12H 10 caps 0RF 5 days Refilled albuterol sulfate 90 mcg/actuation (Ventolin HFA) 2 puffs inhalation Q6H PRN 8.5 grams 0RF shortness of breath or wheezing J45.909 - Unspecified asthma, uncomplicated albuterol sulfate 90 mcg/actuation (Ventolin HFA) 2 puffs inhalation Q6H PRN 8.5 grams 0RF shortness of breath or wheezing J45.909 - Unspecified asthma, uncomplicated Patient Instructions: Influenza (flu) is an infection in the lungs and breathing passages. It is caused by the influenza virus. There are different strains, or types, of the flu virus from year to year. Unlike the common cold, the flu comes on suddenly and the symptoms can be more severe. These symptoms include a cough, congestion, fever, chills, fatigue, aches, and pains. These symptoms may last for a few weeks. Although the flu can make you feel very sick, it usually doesn't cause serious health problems. Home treatment is usually all you need for flu symptoms. But your doctor may prescribe antiviral medicine to prevent other health problems, such as pneumonia, from developing. The risk of other health problems from the flu is highest for young children (under 5), older adults (over 65), women, people with long-term health conditions, people who live in nursing homes or long-term care centres, and indigenous peoples. How can you care for yourself at home? Get plenty of rest. Drink plenty of fluids. If you have to limit fluids because of a health problem, talk with your doctor before you increase the amount of fluids you drink. Take an [id number] pain medicine if needed, such as acetaminophen (Tylenol), ibuprofen (Advil, Motrin), or naproxen (Aleve), to relieve fever, headache, and muscle aches. Read and follow all instructions on the label. No one younger than 18 should take aspirin. It has been linked to Lissy syndrome, a serious illness. Take any prescribed medicine exactly as directed. Do not smoke. Smoking can make the flu worse. If you need help quitting, talk to your doctor about stop-smoking programs and medicines. These can increase your chances of quitting for good. If the skin around your nose and lips becomes sore, put some petroleum jelly (such as Vaseline) on the area. To ease coughing: Suck on cough drops or plain, hard candy. Try an jasl-cfp-jsuqjkq cough or cold medicine. Read and follow all instructions on the label. Raise your head at night with an extra pillow. This may help you rest if coughing keeps you awake. To avoid spreading the flu Wash your hands regularly, and keep your hands away from your face. Stay home from school, work, and other public places until you are feeling better and your fever has been gone for at least 24 hours. The fever needs to have gone away on its own without the help of medicine. Ask people living with you to talk to their doctors about preventing the flu. They may get antiviral medicine to keep from getting the flu from you. To prevent the flu in the future, get the flu vaccine every fall. Encourage people living with you to get the vaccine. Cover your mouth when you cough or sneeze. If you can, cough or sneeze into the bend of your elbow, not your hands. When should you call for help? Call 911 anytime you think you may need emergency care. For example, call if: You have severe trouble breathing. You have a seizure. Call your doctor or nurse advice line now or seek immediate medical care if: You have trouble breathing. You have a fever with a stiff neck or a severe headache. You have pain or pressure in your chest or belly. You have a fever or cough that returns after getting better. You feel very sleepy, dizzy, or confused. You are not urinating. You have severe muscle pain. You have severe weakness, or you are unsteady. You have medical conditions that are getting worse Watch closely for changes in your health, and be sure to contact your doctor or nurse advice line if: You do not get better as expected. You are having a problem with your medicine. Coding Level of Care Code Est Pt Level 3 (51179) Diagnoses Flu-like symptoms R68.89 Mild intermittent asthma without complication J45.20 Asthma severity: mild Asthma persistence: intermittent Asthma complication type: uncomplicated
== END 2025-05-28 12:20 | disposition home or self-care (01) ==
PROVIDERS: PCP Internal Medicine; Visit Provider Nurse Practitioner Family
DX: R68.89 Other general symptoms and signs (principal); J45.20 Mild intermittent asthma, uncomplicated

== ENCOUNTER → 2025-05-28 11:35 | Outpatient (BNVA) | payer OTHER, SELFPAY | PROVIDERS: PCP Internal Medicine; Visit Provider Nurse Practitioner Family | DX: J11.89 Influenza due to unidentified influenza virus with other manifestations (principal); R09.81 Nasal congestion; J45.20 Mild intermittent asthma, uncomplicated | CPT/HCPCS: 99212 ==